=== PATIENT | male | born 1950 | race Caucasian/White ===

== ENCOUNTER → 2019-12-18 12:26 | Outpatient (CLI) | payer MEDICARE, SELFPAY ==
--- NOTE | 2019-12-18 | DI.RAD.S_ITS ---
PROCEDURE: XR KNEE RT 1TO2V INDICATIONS: RT KNEE PAIN TECHNIQUE: 3 views of the knee were acquired. COMPARISON: None. FINDINGS: Bones: No fracture. Scattered degenerative subchondral sclerosis and spurring. Large joint effusion. Bulky ossified formation. Chondrocalcinosis projects in the medial and lateral compartments. Mild narrowing of the lateral joint space. IMPRESSION: Mild/moderate right knee joint degeneration. Right knee chondrocalcinosis Large joint effusion. If the patient's pain or other symptoms persist, consider further evaluation with MRI Dictated by: Devon Rick M.D. on 12/18/2019 at 16:24 Approved by: Devon Rick M.D. on 12/18/2019 at 16:25
== END ==
PROVIDERS: PCP Family Medicine; Referring Provider Family Medicine; Visit Provider Family Medicine
DX: M25.561 Pain in right knee (principal); M17.11 Unilateral primary osteoarthritis, right knee; M11.261 Other chondrocalcinosis, right knee; M25.461 Effusion, right knee
CPT/HCPCS: 73560

== ENCOUNTER → 2019-12-22 10:52 | Outpatient (CLI) | payer MEDICARE, SELFPAY ==
--- NOTE | 2019-12-22 | DI.US.S_ITS ---
PROCEDURE: US CAROTID DOPPLER BI INDICATIONS: OCCLUSION AND STENOSIS TECHNIQUE: Color and pulse Doppler interrogation was performed of both carotid systems, with image documentation and velocity measurements. COMPARISON: None. FINDINGS: Stenosis calculations are based on SRU (Society of Radiologists in Ultrasound) criteria. Right side: Brachial blood pressure: 129/72 mm Hg. Common carotid artery peak systolic velocity: 86 cm/sec. Internal carotid artery peak systolic velocity: 65 cm/sec. Internal carotid artery end diastolic velocity: 17 cm/sec. External carotid artery peak systolic velocity: 94 cm/sec. ICA/CCA peak systolic ratio: 0.8. Sparrow scale imaging description: Mild intimal thickening. Percent internal carotid artery stenosis: Less than 50%. Vertebral artery: Flow direction is antegrade. Left side: Brachial blood pressure: 129/72 mm Hg. Common carotid artery peak systolic velocity: 94 cm/sec. Internal carotid artery peak systolic velocity: 58 cm/sec. Internal carotid artery end diastolic velocity: 20 cm/sec. External carotid artery peak systolic velocity: 83 cm/sec. ICA/CCA peak systolic ratio: 0.6. Sparrow scale imaging description: Mild intimal thickening. Percent internal carotid artery stenosis: Less than 50%. Vertebral artery: Flow direction is antegrade. IMPRESSION: Less than 50% bilateral internal carotid artery stenosis. Dictated by: Peter Echols [facility] Interpreted: Lynette Sullivan MD on 12/22/2019 at 11:54 Approved by: Lynette Sullivan M.D. on 12/22/2019 at 18:10
== END ==
PROVIDERS: PCP Family Medicine; Referring Provider Family Medicine; Visit Provider Family Medicine
DX: I65.23 Occlusion and stenosis of bilateral carotid arteries (principal)
CPT/HCPCS: 93880

== ENCOUNTER → 2020-02-27 08:51 | Outpatient (CLI) | payer MEDICARE, SELFPAY ==
--- NOTE | 2020-02-27 | DI.RAD.S_ITS ---
PROCEDURE: XR CHEST 2V INDICATIONS: DYSPNEA TECHNIQUE: 2 views of the chest were acquired. COMPARISON: [facility], , CHEST 1 VIEW, 04/06/2016, 19:25. [facility], CR, CHEST 2 VIEW, 07/06/2012, 9:25. [facility], RG, XR CXR 2 VIEW, 05/07/2005, 13:26. FINDINGS: Surgical changes and devices: None. Lungs and pleura: Lungs are clear. No pleural effusions or pneumothorax. Mediastinum: The cardiac contours are within normal limits. The aorta demonstrates calcification and tortuosity. Bones and chest wall: No suspicious bony abnormalities. Mild dextroconvex scoliotic curvature is seen. Age-appropriate bony degenerative changes are seen. Soft tissues appear unremarkable. IMPRESSION: Unremarkable imaging study for age, without definite, focal infiltrates. If there is clinical concern for a developing pulmonary process, a short-term followup chest series (with PA and lateral views, performed in deep inspiration) is suggested for further evaluation. Dictated by: Justin Jung M.D. on 02/27/2020 at 8:18 Approved by: Justin Jung M.D. on 02/27/2020 at 8:19
== END ==
PROVIDERS: PCP Family Medicine; Referring Provider Family Medicine; Visit Provider Family Medicine
DX: R06.00 Dyspnea, unspecified (principal)
CPT/HCPCS: 71046

== ENCOUNTER → 2020-03-06 10:06 | Outpatient (CLI) | payer MEDICARE, SELFPAY ==
--- NOTE | 2020-03-06 | DI.CT.S_ITS ---
PROCEDURE: CT CHEST W CON INDICATIONS: DYSPNEA TECHNIQUE: After the administration of intravenous contrast, 5 mm thick sections acquired from the pulmonary apices to the posterior costophrenic angles. 1 mm axial lung, 5 mm thick coronal and sagittal reformats and 7 mm axial MIP were acquired. For radiation dose reduction, the following was used: automated exposure control, adjustment of mA and/or kV according to patient size. COMPARISON: None. FINDINGS: Image quality: Excellent. Lungs and pleura: No acute air space opacities. No pleural effusions or pneumothorax. Central and peripheral airways are patent and normal in caliber. Mediastinum: Heart size is normal. No pericardial effusion. No mediastinal or hilar adenopathy by size criteria. Thoracic aorta and central pulmonary arteries are normal in size. Esophagus is normal in caliber. No hiatal hernia. Bones and chest wall: No suspicious bony lesions. No vertebral body compression fractures. No axillary or supraclavicular adenopathy by size criteria. Thyroid gland appears normal where well seen. Abdomen: Visualized upper abdominal solid organs appear normal. Upper abdominal bowel loops are normal in caliber. Note is made of what appears to be a relatively large gallstone at the gallbladder neck area, seen centered on series 2 images 59-60. This measures up to 2 cm. IMPRESSION: 1. A pulmonary embolus or mass lesion is not seen, no pneumonia or pulmonary fibrosis is identified. 2. What appears to be a coincidentally found possible impacted gallstone is seen at the gallbladder neck area. Biliary distention or inflammation of the gallbladder is not associated. Ultrasound assessment likely is warranted given this appearance and potential for subsequent development of acute cholecystitis as a result. Dictated by: Eric Meléndez M.D. on 03/06/2020 at 11:30 Approved by: Eric Meléndez M.D. on 03/06/2020 at 11:33
== END ==
PROVIDERS: PCP Family Medicine; Referring Provider Family Medicine; Visit Provider Family Medicine
DX: R06.00 Dyspnea, unspecified (principal)
CPT/HCPCS: 71260; Q9967

== ENCOUNTER → 2020-03-15 09:08 | Outpatient (CLI) | payer MEDICARE, SELFPAY ==
--- NOTE | 2020-03-15 | DI.US.S_ITS ---
PROCEDURE: US ABDOMEN COMPLETE INDICATIONS: CALCULUS OF GALLBLADDER WITHOUT CHOLECYSTITIS TECHNIQUE: Real-time scanning was performed of the abdominal and retroperitoneal organs, with image documentation. COMPARISON: [facility], US, ABDOMEN LIMITED, 07/06/2012, 14:57. [facility], CT, CT CHEST W CON, 03/06/2020, 10:30. FINDINGS: Liver: Liver is normal in size and homogeneous in echotexture. Gallbladder: Gallstones can be seen. The gallbladder wall is not thickened, measuring 3 mm or less. No specific pericholecystic fluid is seen. The sonographic Muñoz sign is negative. Biliary ducts: Intrahepatic bile ducts are non-dilated. Extrahepatic bile duct caliber measures 3 mm. Normal is 6-7 mm or less in diameter, or 10 mm or less post-cholecystectomy. Pancreas: Visualized portions of the pancreas are sonographically normal. Spleen: Spleen is normal in size and homogeneous in echotexture. Kidneys: Kidneys are normal in size and echotexture. Right kidney measures 10.7 cm long; left kidney measures 12.6 cm long. No hydronephrosis or nephrolithiasis. No solid masses. Aorta: Visualized aorta is normal in caliber at less than 3 cm. Iliacs: Proximal common iliac arteries are normal in caliber at less than 2.5 cm. IVC: Intrahepatic inferior vena cava is patent. Miscellaneous: No free abdominal fluid. IMPRESSION: Gallstones are seen, yet without additional sonographic signs of cholecystitis. Negative for biliary dilatation. Please correlate with physical examination findings, patient presentation, and laboratory values. Dictated by: Justin Jung M.D. on 03/15/2020 at 9:36 Approved by: Justin Jung M.D. on 03/15/2020 at 9:38
== END ==
PROVIDERS: PCP Family Medicine; Referring Provider Family Medicine; Visit Provider Family Medicine
DX: K80.20 Calculus of gallbladder without cholecystitis without obstruction (principal)
CPT/HCPCS: 76700

== ENCOUNTER → 2020-12-18 11:02 | Outpatient (CLI) | payer MEDICARE, SELFPAY ==
[2020-12-18 11:33] LABS: Add Manual Diff / Slide Review NO; Basophils Absolute Auto 0 /uL (0-100); Basophils Percent Auto 0.3 % (0-2); Eosinophils Absolute Auto 0 /uL (0-450); Eosinophils Percent Auto 0.6 % (2-4); Hemoglobin 11.4 g/dL (13.5-17.5); Lymphocytes Absolute Auto 700 /uL (1100-4500); Lymphocytes Percent Auto 33.4 % (25-40); Mean Corpuscular HGB Conc 33.5 % (30-36); Mean Corpuscular Hemoglobin 31.3 PG (26-34); Mean Corpuscular Volume 93.4 fL (80-100); Monocytes Absolute Auto 100 /uL (0-900); Monocytes Percent Auto 4.7 % (3-14); Neutrophils Absolute Auto 1300 /uL (1500-7000); Platelet Count 143 X10^3/uL (150-400); Red Blood Cell Count 3.64 X10^6/uL (4.5-5.9); Red Cell Distribution Width 15.4 % (11.6-14.8); White Blood Cell Count 2.2 X10^3/uL (4.5-11.0)
[2020-12-18 11:44] LABS: Alanine Aminotransferase 28 IU/L (<50); Alkaline Phosphatase 99 U/L (38-126); Aspartate Aminotransferase 33 IU/L (17-59); BUN Creatinine Ratio 23.6 (6-22); Bilirubin Total 0.4 mg/dL (0.2-1.3); Blood Urea Nitrogen 25 mg/dL (9-20); Calcium 9.9 mg/dL (8.4-10.2); Carbon Dioxide 30 mmol/L (22-32); Chloride 104 mmol/L (98-107); Estimated Glomerular Filt Rate > 60.0 mL/min (>60); Glucose 106 mg/dL (80-110); HEMOLYSIS < 15 (0-50); Potassium 4.5 mmol/L (3.4-5.1); Sodium 142 mmol/L (137-145)
[2020-12-18 11:55] LABS: Albumin Globulin Ratio 0.6 (1.0-2.8); Globulin 6.4 g/dL (1.7-4.1)
[2020-12-18 11:57] LABS: Total Protein 10.4 g/dL (6.3-8.2)
== END ==
PROVIDERS: PCP Family Medicine; Referring Provider Internal Medicine; Visit Provider Internal Medicine
DX: C91.40 Hairy cell leukemia not having achieved remission (principal)
CPT/HCPCS: 36415; 80053; 85025

== ENCOUNTER → 2021-02-19 07:55 | Outpatient (CLI) | payer MEDICARE, SELFPAY ==
--- NOTE | 2021-02-19 | DI.MRI.S_ITS ---
PROCEDURE: MR LUMBAR SPINE WO CON INDICATIONS: Low back pain TECHNIQUE: Noncontrast sagittal T1 spin echo and T2 fast echo, sagittal STIR, axial T1 and T2 fast spin echo through the lumbar spine. In cases with scoliosis, additional coronal T2 fast spin echo may be performed. COMPARISON: None. FINDINGS: There are compression fractures at L3 and L4 with central endplate depression and disruption, along with adjacent bone marrow edema. There is approximately 40 percent height loss in the L4 vertebral body centrally and 20 percent height loss in the L3 vertebral body centrally. Remaining vertebral body heights maintained. Normal alignment. Normal position and appearance of the conus. Prevertebral and paraspinous soft tissues are within normal limits. The included unenhanced retroperitoneal visceral structures demonstrate no significant abnormality. T12-L1: No spinal canal or neural foraminal stenosis. L1-L2: No spinal canal stenosis. Foraminal components of a diffuse disc bulge contribute to mild bilateral neural foraminal stenosis. L2-L3: Diffuse disc bulge without mass effect upon the traversing L3 nerve roots. Foraminal components of the disc bulge contribute to mild bilateral neural foraminal stenosis in conjunction with facet hypertrophy. Small facet effusion on the right. L3-L4: Diffuse disc bulge flattens the ventral thecal sac. Disc material closely approximates but does not appear to abut the descending L4 nerve roots within the subarticular zones. Foraminal components of the disc bulge and facet hypertrophy contribute to mild bilateral neural foraminal stenosis. L4-L5: Disc bulge flattens the ventral thecal sac. No mass effect upon the traversing L5 nerve roots. Moderate bilateral neural foraminal stenosis due to neural foraminal height loss, foraminal components of disc bulge, and facet hypertrophy. Disc material abuts the undersurfaces of the exiting L4 nerve roots within both neural foramina. L5-S1: Diffuse disc bulge. No mass effect upon the traversing S1 nerve roots. Mild bilateral neural foraminal narrowing due to foraminal components of the disc bulge. IMPRESSION: Acute compression fractures at L3 and L4. Multilevel multifactorial degenerative changes worst at L4-L5. Dictated by: Quinten Burns M.D. on 02/19/2021 at 9:11 Approved by: Quinten Burns M.D. on 02/19/2021 at 9:21
== END ==
PROVIDERS: PCP Family Medicine; Referring Provider Family Medicine; Visit Provider Nurse Practitioner Family
DX: M54.5 Low back pain (principal); S32.039A Unspecified fracture of third lumbar vertebra, initial encounter for closed fracture; S32.049A Unspecified fracture of fourth lumbar vertebra, initial encounter for closed fracture; M51.36 Other intervertebral disc degeneration, lumbar region
CPT/HCPCS: 72148

== ENCOUNTER → 2021-02-28 10:09 | Outpatient (CLI) | payer MEDICARE, SELFPAY | PROVIDERS: PCP Family Medicine; Referring Provider Nurse Practitioner Family; Visit Provider Nurse Practitioner Family | DX: M85.88 Other specified disorders of bone density and structure, other site (principal); M48.53XA Collapsed vertebra, not elsewhere classified, cervicothoracic region, initial encounter for fracture | CPT/HCPCS: 77080 ==

== ENCOUNTER → 2021-04-21 11:40 | Outpatient (CLI) | payer MEDICARE, SELFPAY ==
--- NOTE | 2021-04-21 11:45 | DI.MRI.S_ITS ---
PROCEDURE: MR BONE MARROW INDICATIONS: Staging multiple myeloma TECHNIQUE: Noncontrast sagittal T1 spin echo and STIR through the spine; coronal T1 spin echo and STIR through the bony thorax, coronal T1 spin echo and STIR through the bony pelvis and femurs. COMPARISON: None. FINDINGS: Image quality: Excellent. Spine: All visualized vertebral bodies are normally aligned. Markedly heterogeneous marrow signal in lower thoracic and lumbar spine is seen. Possible intraosseous hemangioma is noted involving posterior aspect of T4 vertebral body. Chronic appearing anterior wedge compression deformity at T5 level is seen. There is acute to subacute appearing compression deformity involving T12 vertebral body new since 02/19/2021 study with up to 50% loss of T12 vertebral body height and extensive marrow edema. Acute to subacute appearing compression deformity involving L2 vertebral body is also seen new since 02/19/2021 study with up to 33% loss of L2 vertebral body height and extensive marrow edema. There is interval further loss of L3 and L4 vertebral body height with up to 50% loss of L3 vertebral body height on the current study and up to 35% loss of L4 vertebral body height. Extensive marrow edema involving L5 vertebral body is also seen with up to 30% loss of L5 vertebral body height . Extensive marrow edema throughout L3 through L5 vertebral bodies are also seen. Mild retropulsion involving posterior wall of T12 vertebral body is seen with mild central canal stenosis at this level. Degenerative disc disease throughout lumbar spine is seen causing [id number] central canal stenosis more prominent at L4-5 and L5-S1 levels. The visualized spinal cord demonstrates normal intramedullary signal. The conus is in expected position. No epidural or paravertebral soft tissue masses. Pelvis and hips: Heterogeneously increased marrow signal throughout bony pelvis is seen. Heterogeneously increased marrow signal are also seen involving bilateral proximal femoral shafts concerning for extensive myomatous involvement. No pelvic ring or sacral pathologic or insufficiency fractures. Physiologic amounts of hip joint fluid are present. No joint degeneration or soft tissue bursal fluid collections. Soft tissues: No free pelvic fluid. No pathologic pelvic or inguinal adenopathy. Visualized bowel loops appear normal in caliber. Limited images through the genitourinary tract demonstrate no abnormalities. The muscles demonstrate normal overall bulk and internal signal. IMPRESSION: 1. Markedly heterogeneous marrow signal throughout mid to lower thoracic spine and lumbar spine with marrow edema and acute to subacute appearing compression deformities involving T12, L2, L3, L4 and L5 vertebral bodies as described above, new or progressed since 02/19/2021 study. Finding is concerning for pathologic fracture secondary to myomatous lesions in the vertebral bodies. 2. Heterogeneous marrow signal in bony pelvis with suggestion of multiple lytic lesions scattered throughout bony pelvis and in bilateral proximal femoral shafts concerning for myeloma thus lesions. No pelvic fracture or dislocation. 3. No gross muscle or soft tissue signal abnormality is seen. Dictated by: Jerry Stovall M.D. on 04/21/2021 at 14:31 Approved by: Jerry Stovall M.D. on 04/21/2021 at 14:50
== END ==
PROVIDERS: PCP Family Medicine; Referring Provider Internal Medicine; Visit Provider Internal Medicine
DX: C90.00 Multiple myeloma not having achieved remission (principal)
CPT/HCPCS: 77084

== ENCOUNTER 2021-07-26 14:28 | Inpatient (IN) | payer MEDICARE, SELFPAY ==
[2021-07-26] VITALS (21 sets, daily range): BP systolic 109–125; BP diastolic 56–66; PULSE 80–107; RESP 18–27; TEMP 35.9–37.7; O2SAT 92–98; BMI 27.7
--- NOTE | 2021-07-26 14:49 | DI.RAD.S_ITS ---
PROCEDURE: XR CHEST 1V INDICATIONS: suspected sepsis TECHNIQUE: One view of the chest was acquired. COMPARISON: [facility], CR, XR CHEST 2V, 02/27/2020, 8:50. FINDINGS: Surgical changes and devices: None. Lungs and pleura: Minimal right basilar atelectasis and/or infiltrate is accentuated by low lung volumes. Remainder the lungs and pleural spaces are clear. Mediastinum: Mediastinal contours appear normal. Heart size is normal. Bones and chest wall: No suspicious bony lesions. Overlying soft tissues appear unremarkable. IMPRESSION: Right basilar atelectasis and infiltrate accentuated by low lung volumes Approved by: Tee Alan M.D. on 07/26/2021 at 14:58
[2021-07-26 15:11] LABS: Add Manual Diff / Slide Review NO; Basophils Absolute Auto 0 /uL (0-100); Basophils Percent Auto 0.1 % (0-2); Eosinophils Absolute Auto 0 /uL (0-450); Hematocrit 35.2 % (41-53); Hemoglobin 11.7 g/dL (13.5-17.5); Lymphocytes Absolute Auto 100 /uL (1100-4500); Lymphocytes Percent Auto 2.6 % (25-40); Mean Corpuscular HGB Conc 33.2 % (30-36); Mean Corpuscular Hemoglobin 30.4 PG (26-34); Mean Corpuscular Volume 91.6 fL (80-100); Monocytes Absolute Auto 800 /uL (0-900); Monocytes Percent Auto 13.8 % (3-14); Neutrophils Absolute Auto 4600 /uL (1500-7000); Neutrophils Percent Auto 83.5 % (50-75); Platelet Count 167 X10^3/uL (150-400); Red Blood Cell Count 3.85 X10^6/uL (4.5-5.9); Red Cell Distribution Width 17.4 % (11.6-14.8); White Blood Cell Count 5.5 X10^3/uL (4.5-11.0)
--- NOTE | 2021-07-26 15:19 | DI.RAD.S_ITS ---
PROCEDURE: XR WRIST RT MIN 3V INDICATIONS: Pain multiple myeloma TECHNIQUE: 4 views of the wrist were acquired. COMPARISON: None. FINDINGS: Bones: No fractures or dislocations. No suspicious bony lesions. Radiocarpal joint space narrowing with subchondral sclerosis noted. No joint space narrowing noted involving the 1st carpometacarpal joint. No lytic or blastic lesions. Scaphoid view: Unremarkable Soft tissues: No suspicious soft tissue calcifications. IMPRESSION: No osteoarthritic changes without lytic lesion. Approved by: Tee Alan M.D. on 07/26/2021 at 15:15
--- NOTE | 2021-07-26 15:19 | DI.RAD.S_ITS ---
PROCEDURE: XR SHOULDER RT MIN 2V INDICATIONS: pain multiple myeloma TECHNIQUE: 3 views of the shoulder were acquired. COMPARISON: None. FINDINGS: Bones: No fractures or dislocations. No suspicious bony lesions. Visualized ribs appear intact. Soft tissues: No suspicious soft tissue calcifications. IMPRESSION: Unremarkable right shoulder without fracture or lytic lesion. Approved by: Tee Alan M.D. on 07/26/2021 at 15:16
--- NOTE | 2021-07-26 15:19 | ED_ITS ---
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 He is being treated with medication like his knee gets it about once a month he this is his 3rd dose of it she is not sure if the joint pain is coinciding with this medication. He is on multiple other medications which also cause joint pain. He does occasionally have night sweats. He has no chest pain or shortness of breath. Mostly his right shoulder hurts after turning over in bed last evening. He is having significant pain in his right wrist and her right knee as well. No erythema of joints. He denies any headache or neck pain. He has lytic lesions in his spine. He overall appears to not feel well. states that he has literally been lying in bed for 6 days he uses a urinal to use the restroom he has not been up at all. It took multiple men to get him out of bed into the car today. A week or 2 weeks ago he was of in helping [place] with [place] involved patient due to cancer and chemotherapy he has had to back off his level of involvement but is still very active until 6 days ago. Related Data Home Medications Medication Instructions Recorded Confirmed omega-3 fatty acids 1 tab DAILY 01/03/20 06/17/21 Memory Supplement 1 tab DAILY 12/24/20 06/17/21 ferrous fumarate-docusate ER 150 2 cap PO DAILY 12/24/20 06/17/21 mg-100 mg capsule,extended release Biost Supplement 1 tab DAILY 04/02/21 06/17/21 calcium-magnesium 750 mg-465 mg 1 tab PO DAILY 04/02/21 06/17/21 tablet ibuprofen 300 mg tablet 600 mg PO Q6H PRN 04/02/21 06/17/21 Previous Rx's Medication Instructions Recorded acyclovir 400 mg tablet 400 mg PO BID #60 tab 07/08/21 dexamethasone 4 mg tablet 20 mg PO WEEKLY #20 tab 09/14/21 (Decadron) lenalidomide 25 mg capsule 25 mg PO DAILY 14 Days #14 cap 07/15/21 Allergies Allergy/AdvReac Type Severity Reaction Status Date / Time No Known Drug Allergies Allergy Verified 01/03/20 10:36 Review of Systems Review of Systems ROS Unobtainable: All systems reviewed & are unremarkable except as noted in HPI and below Constitutional Constitutional: Reports body ache(s), Reports chills, Denies headache(s), Denies increased appetite and Reports lethargy Eyes Eyes: Denies diplopia ENT Ears, Nose, Mouth, and Throat: Denies vertigo, Denies headache(s), Denies lip swelling and Denies neck pain Cardiovascular Cardiovascular: Denies chest pain, Denies syncope and Denies lightheadedness Respiratory Respiratory: Denies chest congestion and Denies cough Gastrointestinal Gastrointestinal: Denies abdominal pain, Denies nausea and Denies vomiting Genitourinary Genitourinary: Denies urinary hesitancy Musculoskeletal Musculoskeletal: Reports as per HPI, Denies deformity, Reports arthralgias, Reports joint swelling and Denies neck pain Integumentary/Breasts Skin/Breast: Denies rash Neurologic Neurologic: Denies confusion, Denies vertigo, Denies syncope and Denies headache(s) Psychiatric Psychiatric: Denies confusion Allergic/Immunologic Allergic/Immunologic: Denies lip swelling Patient History Social History Smoking Status: Never smoker Smoking Status: Never smoker Substance Use Type: does not use Exam Initial Vital Signs Initial Vital Signs: Vital Signs Temperature 99.8 F H 07/26/21 14:38 Pulse Rate 107 H 07/26/21 14:38 Respiratory Rate 20 07/26/21 14:38 Blood Pressure 120/59 L 07/26/21 14:38 Pulse Oximetry 97 07/26/21 14:38 GENERAL: Alert 70-year-old male appears to not feel well= HEENT: Head atraumatic,EOMI, pupils reactive, face symmetric, moist mucous membranes CARDIOVASCULAR: Regular rate and rhythm without murmurs, rubs or gallops. RESPIRATORY: Breath sounds equal bilaterally, no wheezes rales or rhonchi. ABDOMEN: Soft, nontender. Normoactive bowel sounds all 4 quadrants. No guarding or rebound. EXTREMITIES: Normal range of motion, no clubbing or edema. Neurovascularly intact Right shoulder tender to touch no erythema no swelling no clavicle step-off right wrist pain but also noted no significant swelling or erythema distal radial pulse intact moving fingers right knee in the knee brace but there is no erythema minimal swelling NEUROLOGICAL: Alert and oriented x4.Normal gait and speech. Cranial nerves II through XII grossly intact. SKIN: Warm, dry, no laceration, no petechiae, no rashes or lesions. Course Orders Ordered: ED Orders 07/26/21 14:49 XR chest 1V Stat EKG-12 Lead Stat RT Consult Eval and Treat Now 07/26/21 15:01 C-Reactive Protein Quant Stat Complete Blood Count AUTO DIFF Stat Comprehensive Metabolic Panel Stat Erythrocyte Sedimentation Rate Stat Lactate (Lactic Acid) Stat Lipase Stat Procalcitonin Stat Troponin & CK Cardiac Panel Stat 07/26/21 15:10 Blood Culture Stat 07/26/21 15:17 COVID19 - ADMIT ([employer]ORDIN[employer] swab/PCR) Stat 07/26/21 15:19 XR knee RT 1to2V Stat XR shoulder RT min 2V Stat XR wrist RT min 3V Stat 07/26/21 17:36 CT head/brain wo con Stat Discontinued Medications Sodium Chloride (Normal Saline 0.9%) 1,000 mls @ 1,000 mls/hr IV BOLUS ONE Stop: 07/26/21 15:48 Last Infusion: 07/26/21 16:48 Dose: 0 mls/hr Documented by: Admin: 07/26/21 15:20 Dose: 1,000 mls/hr Documented by: NAHEED Sodium Chloride (Normal Saline 0.9%) 1,000 mls @ 1,000 mls/hr IV BOLUS ONE Stop: 07/26/21 17:46 Last Infusion: 07/26/21 17:58 Dose: 0 mls/hr Documented by: Admin: 07/26/21 16:51 Dose: 1,000 mls/hr Documented by: MEGA Morphine Sulfate (Morphine 2 Mg/Ml Inj) 2 mg IV NOW ONE Stop: 07/26/21 15:20 Last Admin: 07/26/21 15:26 Dose: 2 mg Documented by: NAHEED Vital Signs Vital signs: Vital Signs - 8 hr 07/26/21 14:38 07/26/21 14:52 07/26/21 15:00 Temperature 99.8 F H Pulse Rate 107 H 102 H 104 H Respiratory Rate 20 27 H Blood Pressure 120/59 L Pulse Oximetry 97 96 96 07/26/21 15:11 07/26/21 15:15 07/26/21 15:30 Temperature Pulse Rate 102 H 104 H 96 H Respiratory Rate 27 H 27 H 25 H Blood Pressure 124/66 125/59 L Pulse Oximetry 96 97 98 07/26/21 15:45 07/26/21 16:00 07/26/21 16:15 Temperature Pulse Rate 93 H 91 H 91 H Respiratory Rate 22 25 H 20 Blood Pressure 120/57 L Pulse Oximetry 97 97 95 07/26/21 16:30 07/26/21 16:45 07/26/21 17:00 Temperature Pulse Rate 91 H 89 89 Respiratory Rate 21 20 20 Blood Pressure 119/56 L 119/56 L 119/56 L Pulse Oximetry 94 96 93 07/26/21 17:15 07/26/21 17:30 07/26/21 17:45 Temperature Pulse Rate 88 91 H 87 Respiratory Rate 20 20 22 Blood Pressure 120/58 L Pulse Oximetry 93 97 95 07/26/21 17:57 07/26/21 18:00 07/26/21 18:15 Temperature 96.7 F L Pulse Rate 89 92 H Respiratory Rate 20 20 Blood Pressure 120/58 L Pulse Oximetry 96 97 MDM - Fever Lab Data Result diagrams: 07/26/21 15:01 07/26/21 15:01 Labs: Lab Results 07/26/21 07/26/21 07/26/21 Range/Units 15:01 15:01 15:01 WBC 5.5 (4.5-11.0) X10^3/uL RBC 3.85 L (4.5-5.9) X10^6/uL Hgb 11.7 L (13.5-17.5) g/dL Hct 35.2 L (41-53) % MCV 91.6 (80-100) fL MCH 30.4 (26-34) PG MCHC 33.2 (30-36) % RDW 17.4 H (11.6-14.8) % Plt Count 167 (150-400) X10^3/uL Neut % (Auto) 83.5 H (50-75) % Lymph % (Auto) 2.6 L (25-40) % [place] % (Auto) 13.8 (3-14) % Eos % (Auto) 0.0 L (2-4) % Baso % (Auto) 0.1 (0-2) % Neut # (Auto) 4600 (3490-4290) /uL Lymph # (Auto) 100 L (8388-2994) /uL [place] # (Auto) 800 (0-900) /uL Eos # (Auto) 0 (0-450) /uL Baso # (Auto) 0 (0-100) /uL ESR (0-15) MM/HR Sodium 137 (137-145) mmol/L Potassium 4.1 (3.4-5.1) mmol/L Chloride 102 (98-107) mmol/L Carbon Dioxide 26 (22-32) mmol/L BUN 20 (9-20) mg/dL Creatinine 1.23 (0.66-1.25) mg/dL Estimated GFR 58.2 L (>60) mL/min BUN/Creatinine Ratio 16.3 (6-22) Glucose 181 H (80-110) mg/dL Lactate 1.8 (0.7-2.1) mmol/L Calcium 7.3 L (8.4-10.2) mg/dL Total Bilirubin 1.0 (0.2-1.3) mg/dL AST 22 (17-59) IU/L ALT 25 (<50) IU/L Alkaline Phosphatase 89 (38-126) U/L Total Creatine Kinase 31 L (55-170) U/L CK-MB (CK-2) TNP CK-MB (CK-2) Rel Index TNP Troponin I < 0.012 (0.01-0.034) ng/mL C-Reactive Protein (<1.0) mg/dL Total Protein 7.6 (6.3-8.2) g/dL Albumin 3.9 (3.5-5.0) g/dL Globulin 3.7 (1.7-4.1) g/dL Albumin/Globulin Ratio 1.1 (1.0-2.8) Lipase 14 L (23-300) U/L Procalcitonin 0.65 H (<0.5) ng/mL SARS-CoV-2 (PCR) (Negative) 07/26/21 07/26/21 07/26/21 Range/Units 15:01 15:01 15:17 WBC (4.5-11.0) X10^3/uL RBC (4.5-5.9) X10^6/uL Hgb (13.5-17.5) g/dL Hct (41-53) % MCV (80-100) fL MCH (26-34) PG MCHC (30-36) % RDW (11.6-14.8) % Plt Count (150-400) X10^3/uL Neut % (Auto) (50-75) % Lymph % (Auto) (25-40) % [place] % (Auto) (3-14) % Eos % (Auto) (2-4) % Baso % (Auto) (0-2) % Neut # (Auto) (2201-9265) /uL Lymph # (Auto) (0463-0021) /uL [place] # (Auto) (0-900) /uL Eos # (Auto) (0-450) /uL Baso # (Auto) (0-100) /uL ESR > 140 H (0-15) MM/HR Sodium (137-145) mmol/L Potassium (3.4-5.1) mmol/L Chloride (98-107) mmol/L Carbon Dioxide (22-32) mmol/L BUN (9-20) mg/dL Creatinine (0.66-1.25) mg/dL Estimated GFR (>60) mL/min BUN/Creatinine Ratio (6-22) Glucose (80-110) mg/dL Lactate (0.7-2.1) mmol/L Calcium (8.4-10.2) mg/dL Total Bilirubin (0.2-1.3) mg/dL AST (17-59) IU/L ALT (<50) IU/L Alkaline Phosphatase (38-126) U/L Total Creatine Kinase (55-170) U/L CK-MB (CK-2) CK-MB (CK-2) Rel Index Troponin I (0.01-0.034) ng/mL C-Reactive Protein 29.4 H (<1.0) mg/dL Total Protein (6.3-8.2) g/dL Albumin (3.5-5.0) g/dL Globulin (1.7-4.1) g/dL Albumin/Globulin Ratio (1.0-2.8) Lipase (23-300) U/L Procalcitonin (<0.5) ng/mL SARS-CoV-2 (PCR) Negative (Negative) Imaging Data CT scan - head: Radiologist's Impression: PROCEDURE:? CT HEAD/BRAIN WO CON ? INDICATIONS:? weakness ? TECHNIQUE:? Noncontrast 4.5 mm thick angled axial sections acquired from the foramen magnum to the vertex, with coronal and sagittal reformats.? For radiation dose reduction, the following was used:? automated exposure control, adjustment of mA and/or kV according to patient size.? ? COMPARISON:? [facility], CT, HEAD WITHOUT CONTRAST, 04/06/2016, 19:43. ? FINDINGS:? Image quality:? Excellent.? ? CSF spaces:? Basal cisterns are patent.? No extra-axial fluid collections.? The ventricles are symmetric in size and shape.? ? Brain:? No intracranial bleeds or masses.? There is cerebral volume loss for age, with resultant ventricular and sulcal prominence.? There are periventricular and deep white matter chronic small vessel ischemic changes.? There is intracranial internal carotid artery atherosclerosis.? ? Skull and face:? Calvarium and visualized facial bones appear intact, without suspicious lesions.? ? Sinuses:? Visualized sinuses and mastoids are clear.? ? IMPRESSION:? Moderate atrophy and chronic ischemic change without acute hemorrhage or mass effect. ? ? ? Approved by: Tee Alan M.D. on 07/26/2021 at 17:12? Extremity x-ray #1: Radiologist's Impression: PROCEDURE:? XR WRIST RT MIN 3V ? INDICATIONS: Pain multiple myeloma ? TECHNIQUE:? 4 views of the wrist were acquired.? ? COMPARISON:? None. ? FINDINGS:? ? Bones:? No fractures or dislocations.? No suspicious bony lesions.? Radiocarpal joint space narrowing with subchondral sclerosis noted.? No joint space narrowing noted involving the 1st carpometacarpal joint.? No lytic or blastic lesions. ? Scaphoid view:? Unremarkable ? Soft tissues:? No suspicious soft tissue calcifications.? ? IMPRESSION:? No osteoarthritic changes without lytic lesion. ? ? ? Approved by: Tee Alan M.D. on 07/26/2021 at 15:15? Extremity x-ray #2: Radiologist's Impression: PROCEDURE:? XR SHOULDER RT MIN 2V ? INDICATIONS:? pain multiple myeloma ? TECHNIQUE:? 3 views of the shoulder were acquired.? ? COMPARISON:? None. ? FINDINGS:? ? Bones:? No fractures or dislocations.? No suspicious bony lesions.? Visualized ribs appear intact.? ? Soft tissues:? No suspicious soft tissue calcifications.? ? IMPRESSION:? Unremarkable right shoulder without fracture or lytic lesion. ? ? ? Approved by: Tee Alan M.D. on 07/26/2021 at 15:16? Extremity x-ray #3: Radiologist's Impression: PROCEDURE:? XR KNEE RT 1TO2V ? INDICATIONS:? pain multiple myeloma ? TECHNIQUE:? 3 views of the knee were acquired.? ? COMPARISON:? [facility], , XR KNEE RT 1TO2V, 12/18/2019, 13:05. ? FINDINGS:? ? Bones:? No fractures or dislocations.? No suspicious bony lesions.? Tricompartmental moderate joint space narrowing and marginal osteophytes present.? No lytic or blastic lesion. ? Soft tissues:? Large joint effusion.? No suspicious soft tissue calcifications.? ? External bracing material limits assessment. ? ? IMPRESSION:? Moderate osteoarthritis and large joint effusion.? No lytic lesion.? ? ? Approved by: Tee Alan M.D. on 07/26/2021 at 15:18? Chest x-ray: Radiologist's Impression: PROCEDURE:? XR CHEST 1V ? INDICATIONS:? suspected sepsis ? TECHNIQUE:? One view of the chest was acquired.? ? COMPARISON:? [facility], , XR CHEST 2V, 02/27/2020, 8:50. ? FINDINGS:? ? Surgical changes and devices:? None.? ? Lungs and pleura:? Minimal right basilar atelectasis and/or infiltrate is accentuated by low lung volumes.? Remainder the lungs and pleural spaces are clear. ? Mediastinum:? Mediastinal contours appear normal.? Heart size is normal.? ? Bones and chest wall:? No suspicious bony lesions.? Overlying soft tissues appear unremarkable.? ? IMPRESSION:? Right basilar atelectasis and infiltrate accentuated by low lung volumes ? ? ? Approved by: Tee Alan M.D. on 07/26/2021 at 14:58? ECG Data Interpretation: Sinus rhythm 105 WI interval 178 QRS [address] changes or T-wave inversion no ST changes he does have a Q-wave noted in lead 3 and AVF similar to previous EKG 2016 MDM Narrative Medical decision making narrative: Patient is overall generally weak. Significantly more than previous. Unclear if this is related to chemotherapy or other underlying process. He does have mildly elevated procalcitonin of 0.65 but is normally not severe sepsis he has no leukocytosis normal lactic acid. Significantly elevated ESR and CRP difficult to tell what is causing this. He is having pain putting some of his larger joints but do not think 3 days or 1 of those is septic it is not erythematous he does not have a fever. He is generally very active and is not on active for the last number of days. He is given morphine for pain which has helped significantly. Recommend admit for observation he is generally weak not at baseline Dr. ervin updated patient's symptoms test results and except Discharge Plan Departure Patient Disposition: Admitted as Observation Clinical Impression: Weakness generalized, Hairy cell leukemia, Multiple myeloma Admit Date/Time: 07/26/21 18:23 Admit Provider: Christin Ervin
--- NOTE | 2021-07-26 15:19 | DI.RAD.S_ITS ---
PROCEDURE: XR KNEE RT 1TO2V INDICATIONS: pain multiple myeloma TECHNIQUE: 3 views of the knee were acquired. COMPARISON: [facility], CR, XR KNEE RT 1TO2V, 12/18/2019, 13:05. FINDINGS: Bones: No fractures or dislocations. No suspicious bony lesions. Tricompartmental moderate joint space narrowing and marginal osteophytes present. No lytic or blastic lesion. Soft tissues: Large joint effusion. No suspicious soft tissue calcifications. External bracing material limits assessment. IMPRESSION: Moderate osteoarthritis and large joint effusion. No lytic lesion. Approved by: Tee Alan M.D. on 07/26/2021 at 15:18
[2021-07-26] MEDS: SODIUM CHLORIDE 0.9% 1,000 ML 1000 ML IV ×2 (15:20→16:51)
[2021-07-26] MEDS: MORPHINE 2 MG/ML INJ IV (15:26)
[2021-07-26 15:28] LABS: Alanine Aminotransferase 25 IU/L (<50); Albumin 3.9 g/dL (3.5-5.0); Albumin Globulin Ratio 1.1 (1.0-2.8); Alkaline Phosphatase 89 U/L (38-126); Aspartate Aminotransferase 22 IU/L (17-59); BUN Creatinine Ratio 16.3 (6-22); Blood Urea Nitrogen 20 mg/dL (9-20); Calcium 7.3 mg/dL (8.4-10.2); Carbon Dioxide 26 mmol/L (22-32); Chloride 102 mmol/L (98-107); Creatine Kinase 31 U/L (55-170); Estimated Glomerular Filt Rate 58.2 mL/min (>60); Globulin 3.7 g/dL (1.7-4.1); Glucose 181 mg/dL (80-110); HEMOLYSIS < 15 (0-50); Lactate (Lactic Acid) 1.8 mmol/L (0.7-2.1); Lipase 14 U/L (23-300); Potassium 4.1 mmol/L (3.4-5.1); Sodium 137 mmol/L (137-145); Total Protein 7.6 g/dL (6.3-8.2)
[2021-07-26 15:39] LABS: Troponin I < 0.012 ng/mL (0.01-0.034)
[2021-07-26 15:43] LABS: Procalcitonin 0.65 ng/mL (<0.5)
[2021-07-26 15:46] LABS: Erythrocyte Sedimentation Rate > 140 MM/HR (0-15)
[2021-07-26 16:15] LABS: C-Reactive Protein Quant 29.4 mg/dL (<1.0)
[2021-07-26 16:46] LABS: COVID19 - ADMIT (NP swab/PCR) Negative (Negative)
--- NOTE | 2021-07-26 17:36 | DI.CT.S_ITS ---
PROCEDURE: CT HEAD/BRAIN WO CON INDICATIONS: weakness TECHNIQUE: Noncontrast 4.5 mm thick angled axial sections acquired from the foramen magnum to the vertex, with coronal and sagittal reformats. For radiation dose reduction, the following was used: automated exposure control, adjustment of mA and/or kV according to patient size. COMPARISON: [facility], CT, HEAD WITHOUT CONTRAST, 04/06/2016, 19:43. FINDINGS: Image quality: Excellent. CSF spaces: Basal cisterns are patent. No extra-axial fluid collections. The ventricles are symmetric in size and shape. Brain: No intracranial bleeds or masses. There is cerebral volume loss for age, with resultant ventricular and sulcal prominence. There are periventricular and deep white matter chronic small vessel ischemic changes. There is intracranial internal carotid artery atherosclerosis. Skull and face: Calvarium and visualized facial bones appear intact, without suspicious lesions. Sinuses: Visualized sinuses and mastoids are clear. IMPRESSION: Moderate atrophy and chronic ischemic change without acute hemorrhage or mass effect. Approved by: Tee Alan M.D. on 07/26/2021 at 17:12
--- NOTE | 2021-07-26 20:07 | P.HP_ITS ---
History of Present Illness History of Present Illness Date Patient Seen: 07/26/21 Time Patient Seen: 20:07 Date of Onset of Symptoms: 07/20/21 Chief complaint: reaction to meds/severe pain and swelling in joint Narrative: This is a 70-year-old male with hairy cell leukemia diagnosed in 2011 and multiple myeloma diagnosed after 2 compression fractures within the last year. Six days ago he developed bilateral knee pain along with swelling in the right wrist. The swelling and pain has made it impossible for him to function and so he has been in bed, weakening over the last 6 days. He now presents with a sed rate greater than 140, a CRP of 29.4 and a procalcitonin of 0.65. His COVID test is negative and he is COVID vaccinated. He is currently under oncologic treatment with lenalidomide along with some various other injection treatments that he does not recall the name of. He is also on acyclovir but really on no other medications and has no other significant medical history. He does recall having had gout in several fingers many years ago. He says this feels much worse than his episode of gout. His chest x-ray is read as a right base infiltrate which I have reviewed and do not see any signs of. He has had a mild cough and has felt feverish and sweaty but does not recall any specific temperatures. There has been no nausea, vomiting, abdominal pain, chest pain, dysuria, rash. His white blood count is normal at 5.5 with a hemoglobin of 11.7 and platelets of 167. He has no apparent lytic lesions on the current chest x- ray and right knee x-ray but does have a large joint effusion and moderate osteoarthritis on the right knee. The right wrist, right shoulder and head CT are read as normal. 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 Yuly is his backup decision maker. Dr. Nance is his primary care physician. Safety & Behavioral: Feels Safe in Current Yes Environment Been Physically Hurt or No Threatened By a Person Tobacco & Substance use: Smoking Status Never smoker Substance Use Type does not use Meds Home Medications and Allergies Home Medications Medication Instructions Recorded Confirmed Type omega-3 fatty acids 1 tab DAILY 01/03/20 06/17/21 History Memory Supplement 1 tab DAILY 12/24/20 06/17/21 History ferrous fumarate-docusate ER 150 2 cap PO DAILY 12/24/20 06/17/21 History mg-100 mg capsule,extended release Biost Supplement 1 tab DAILY 04/02/21 06/17/21 History calcium-magnesium 750 mg-465 mg 1 tab PO DAILY 04/02/21 06/17/21 History tablet ibuprofen 300 mg tablet 600 mg PO Q6H PRN 04/02/21 06/17/21 History acyclovir 400 mg tablet 400 mg PO BID #60 tab 07/08/21 Rx dexamethasone 4 mg tablet 20 mg PO WEEKLY #20 tab 07/08/21 Rx (Decadron) lenalidomide 25 mg capsule 25 mg PO DAILY 14 Days #14 cap 07/15/21 Rx Allergies Allergy/AdvReac Type Severity Reaction Status Date / Time No Known Drug Allergies Allergy Verified 01/03/20 10:36 Review of Systems Review of Systems Narrative: Positive for fevers, sweats, joint pain, weakness. Positive for mild cough. Negative for nausea, vomiting, abdominal pain, bleeding, rash, seizures, headaches, chest pain and diarrhea. Exam Vital Signs (past 8 hours): - 07/26/21 14:38 07/26/21 14:52 07/26/21 15:00 Temperature 99.8 F H Pulse Rate 107 H 102 H 104 H Respiratory Rate 20 27 H Blood Pressure 120/59 L Pulse Oximetry 97 96 96 07/26/21 15:11 07/26/21 15:15 07/26/21 15:30 Temperature Pulse Rate 102 H 104 H 96 H Respiratory Rate 27 H 27 H 25 H Blood Pressure 124/66 125/59 L Pulse Oximetry 96 97 98 07/26/21 15:45 07/26/21 16:00 07/26/21 16:15 Temperature Pulse Rate 93 H 91 H 91 H Respiratory Rate 22 25 H 20 Blood Pressure 120/57 L Pulse Oximetry 97 97 95 07/26/21 16:30 07/26/21 16:45 07/26/21 17:00 Temperature Pulse Rate 91 H 89 89 Respiratory Rate 21 20 20 Blood Pressure 119/56 L 119/56 L 119/56 L Pulse Oximetry 94 96 93 07/26/21 17:15 07/26/21 17:30 07/26/21 17:45 Temperature Pulse Rate 88 91 H 87 Respiratory Rate 20 20 22 Blood Pressure 120/58 L Pulse Oximetry 93 97 95 07/26/21 17:57 07/26/21 18:00 07/26/21 18:15 Temperature 96.7 F L Pulse Rate 89 92 H Respiratory Rate 20 20 Blood Pressure 120/58 L Pulse Oximetry 96 97 07/26/21 18:30 07/26/21 18:45 07/26/21 19:00 Temperature Pulse Rate 89 90 87 Respiratory Rate 24 21 21 Blood Pressure Pulse Oximetry 94 92 96 Oxygen Delivery Method Room Air Narrative Exam Narrative: He is alert and oriented x3. He is in moderate distress from joint pain and swelling. Pupils are equally round and reactive to light and accommodation. Extraocular muscles are intact. Sclerae are pink and nonicteric. Conjunctiva are mildly injected Throat looks normal No lymph nodes are felt head, neck, supraclavicular area There is no thyromegaly JVD is less than 6 cm No carotid bruits are heard Heart is regular rate and rhythm without murmur Lungs are clear to auscultation bilaterally Abdomen is soft, bowel sounds positive, nontender, no organomegaly. Extremities have no ankle edema Joints are notable for synovial swelling and tenderness in both wrists and both knees. Most significant is the right knee which appears to be moderately swollen with joint fluid. Aspiration of the right knee documents 1 mL of viscous fluid consistent with most of the swelling being in the synovial areas. Skin has no rash, jaundice, petechia, purpura Neuro exam Cranial nerves 2-12 test intact Motor function is limited by joint pain and guarding but appears to be somewhat diminished diffusely Range of motion of the wrists are both limited as are the knees Reflexes are normal There is no tremor Objective Labs Result Diagrams: 07/26/21 15:01 07/26/21 15:01 Labs: Laboratory Results - last 24 hr 07/26/21 07/26/21 07/26/21 15:01 15:01 15:01 WBC 5.5 RBC 3.85 L Hgb 11.7 L Hct 35.2 L MCV 91.6 MCH 30.4 MCHC 33.2 RDW 17.4 H Plt Count 167 Neut % (Auto) 83.5 H Lymph % (Auto) 2.6 L [place] % (Auto) 13.8 Eos % (Auto) 0.0 L Baso % (Auto) 0.1 Neut # (Auto) 4600 Lymph # (Auto) 100 L [place] # (Auto) 800 Eos # (Auto) 0 Baso # (Auto) 0 ESR Sodium 137 Potassium 4.1 Chloride 102 Carbon Dioxide 26 BUN 20 Creatinine 1.23 Estimated GFR 58.2 L BUN/Creatinine Ratio 16.3 Glucose 181 H Lactate 1.8 Calcium 7.3 L Total Bilirubin 1.0 AST 22 ALT 25 Alkaline Phosphatase 89 Total Creatine Kinase 31 L CK-MB (CK-2) TNP CK-MB (CK-2) Rel Index TNP Troponin I < 0.012 C-Reactive Protein Total Protein 7.6 Albumin 3.9 Globulin 3.7 Albumin/Globulin Ratio 1.1 Lipase 14 L Procalcitonin 0.65 H SARS-CoV-2 (PCR) 07/26/21 07/26/21 07/26/21 15:01 15:01 15:17 WBC RBC Hgb Hct MCV MCH MCHC RDW Plt Count Neut % (Auto) Lymph % (Auto) [place] % (Auto) Eos % (Auto) Baso % (Auto) Neut # (Auto) Lymph # (Auto) [place] # (Auto) Eos # (Auto) Baso # (Auto) ESR > 140 H Sodium Potassium Chloride Carbon Dioxide BUN Creatinine Estimated GFR BUN/Creatinine Ratio Glucose Lactate Calcium Total Bilirubin AST ALT Alkaline Phosphatase Total Creatine Kinase CK-MB (CK-2) CK-MB (CK-2) Rel Index Troponin I C-Reactive Protein 29.4 H Total Protein Albumin Globulin Albumin/Globulin Ratio Lipase Procalcitonin SARS-CoV-2 (PCR) Negative Assessment & Plan Assessment & Plan narrative: This is a 70-year-old male with diffuse jamel yarthralgia, elevated sed rate and CRP, immobilized by joint pain. He is under treatment for multiple myeloma and hairy cell leukemia. Diffuse Polyarthralgia, present on admission. Active. -right knee joint aspiration with viscous fluid sent for crystals. -right knee injected with 4 mg of dexamethasone on admission on 07/26/2021 -uric acid level and rheumatoid factor pending -follow-up CRP 07/27 -begin appropriate gout treatment if confirmed -oral hydrocodone and IV Dilaudid as needed. Probable Gout, present on admission. Active. -pending uric acid level and joint fluid evaluation -begin colchicine versus prednisone depending on joint fluid results and CRP trending -possible orthopedic consultation 07/27/2021 Generalized weakness/deconditioning, present on admission. Active. -this appears to be a function of the diffuse polyarthralgia. -once joint pain improves consider physical therapy evaluation. Hairy Cell Leukemia, present on admission. Chronic. -treated in 2011 Multiple Myeloma, present admission. Active. -no current lytic lesions described on x-rays of right wrist, right shoulder, right knee and his CT. -2 prior compression fractures -holding lenalidomide, possible precipitant of polyarthralgia/gout -normal white blood count, hemoglobin, platelets on admission Lovenox for DVT prevention Continue regular diet Possible orthopedic consultation in the morning Time Spent With Patient Critical Care time: I spent a total of [] minutes of critical care time on this patient's care today; this time is exclusive of procedural time.
--- NOTE | 2021-07-26 20:34 | PM.PROC.1 ---
Procedures Date/Time Date of procedure: 07/26/21 Time of procedure: 20:37 Joint Aspiration/Injection Time out performed: Yes Side of body: right Joint aspirated: knee Ultrasound guidance: No Skin prep: sterile prep and drape Local anesthesia used: lidocaine 1% Needle size used: 22G Fluid obtained: viscous Total fluid obtained (ml): 1 Medication injected, if any: other (Dexamethasone 4 mg) Amount of medication injected (ml): 1 Patient tolerated procedure: well Complications: none Additional comments: Clinical impression of a large amount of joint fluid was not matched by the only 1 ml of fluid obtained
[2021-07-26] MEDS: SODIUM CHLORIDE 0.9% 1,000 ML 100 ML IV (21:44)
[2021-07-26] MEDS: HYDROCODONE/ACET 5/325 TABLET 1 TAB PO (21:45)
[2021-07-26] MEDS: ACYCLOVIR 400 MG TABLET PO (21:45)
[2021-07-26 21:50] LABS: Crystals Body Fluid - IN-HOUSE NONE Present
[2021-07-26] MEDS: DEXAMETHASONE 4 MG/ML VIAL (22:50)
[2021-07-26] MEDS: LIDOCAINE 1% 20 ML (22:53)
--- NOTE | 2021-07-26 23:38 | PC.ADMIT ---
[phone] Admission Note: Patient arrived to floor at 1715 from ER. Patient oriented to room and shown how to use call light. Brakes on bed are locked. The patient,Praful Silva,70 y/o, was given written information regarding hospital policies, unit procedures and contact persons. Patient's smoking status: Never smoker. Vital Signs - 8 hr 07/26/21 15:45 07/26/21 16:00 07/26/21 16:15 Temperature Pulse Rate 93 H 91 H 91 H Respiratory Rate 22 25 H 20 Blood Pressure 120/57 L Pulse Oximetry 97 97 95 07/26/21 16:30 07/26/21 16:45 07/26/21 17:00 Temperature Pulse Rate 91 H 89 89 Respiratory Rate 21 20 20 Blood Pressure 119/56 L 119/56 L 119/56 L Pulse Oximetry 94 96 93 07/26/21 17:15 07/26/21 17:30 07/26/21 17:45 Temperature 99.3 F Pulse Rate 80 91 H 87 Respiratory Rate 18 20 22 Blood Pressure 109/57 L 120/58 L Pulse Oximetry 95 97 95 07/26/21 17:57 07/26/21 18:00 07/26/21 18:15 Temperature 96.7 F L Pulse Rate 89 92 H Respiratory Rate 20 20 Blood Pressure 120/58 L Pulse Oximetry 96 97 07/26/21 18:30 07/26/21 18:45 07/26/21 19:00 Temperature Pulse Rate 89 90 87 Respiratory Rate 24 21 21 Blood Pressure Pulse Oximetry 94 92 96
[2021-07-26 23:41] LABS: Appearance Urine UA CLEAR; Bilirubin Urine UA NEGATIVE (NEGATIVE); Glucose Urine UA TRACE g/dL (Negative); Ketones Urine UA NEGATIVE (NEGATIVE); Leukocyte Esterase Urine UA TRACE (NEGATIVE); Nitrite Urine UA NEGATIVE (Negative); Occult Blood Urine UA NEGATIVE (Negative); Protein Urine UA 1+ (Negative); Specific Gravity Urine UA 1.025 (1.000-1.035); Urobilinogen Urine UA 0.2 E.U./dL (0.2)
[2021-07-26 23:46] LABS: Color Urine UA Dark Yellow
[2021-07-26 23:48] LABS: RBC Urine 0-1/HPF (0-5/HPF); WBC Urine 0-1/HPF (0-5/HPF)
[2021-07-26 23:49] LABS: Amorphous Sediment Urine 1+; Bacteria Urine Moderate (10-30); Culture Indicated Urine Specimen Cultured; Granular Casts Urine 5-10/LPF; Hyaline Casts Urine 5-10/LPF; Mucus Urine 2+ (Negative); Squamous Epithelial Cell Urine 0-1 /HPF (0-5/HPF)
[2021-07-27] VITALS: BP 121/58; PULSE 83; RESP 18; TEMP 36.6; O2SAT 92
[2021-07-27] MEDS: HYDROCODONE/ACET 5/325 TABLET 1 TAB PO ×2 (02:23→08:31)
[2021-07-27 05:27] LABS: Add Manual Diff / Slide Review NO; Basophils Absolute Auto 0 /uL (0-100); Basophils Percent Auto 0.1 % (0-2); Eosinophils Absolute Auto 0 /uL (0-450); Hematocrit 31.3 % (41-53); Hemoglobin 10.2 g/dL (13.5-17.5); Lymphocytes Absolute Auto 200 /uL (1100-4500); Lymphocytes Percent Auto 3.5 % (25-40); Mean Corpuscular HGB Conc 32.6 % (30-36); Mean Corpuscular Hemoglobin 30.2 PG (26-34); Mean Corpuscular Volume 92.6 fL (80-100); Monocytes Absolute Auto 400 /uL (0-900); Monocytes Percent Auto 9.1 % (3-14); Neutrophils Absolute Auto 4000 /uL (1500-7000); Neutrophils Percent Auto 87.3 % (50-75); Platelet Count 150 X10^3/uL (150-400); Red Blood Cell Count 3.38 X10^6/uL (4.5-5.9); Red Cell Distribution Width 17.5 % (11.6-14.8); White Blood Cell Count 4.6 X10^3/uL (4.5-11.0)
[2021-07-27 05:41] LABS: Alanine Aminotransferase 17 IU/L (<50); Albumin 3.2 g/dL (3.5-5.0); Alkaline Phosphatase 68 U/L (38-126); Aspartate Aminotransferase 17 IU/L (17-59); BUN Creatinine Ratio 20.4 (6-22); Bilirubin Total 0.5 mg/dL (0.2-1.3); Blood Urea Nitrogen 23 mg/dL (9-20); Carbon Dioxide 26 mmol/L (22-32); Chloride 107 mmol/L (98-107); Estimated Glomerular Filt Rate > 60.0 mL/min (>60); Globulin 3.3 g/dL (1.7-4.1); Glucose 133 mg/dL (80-110); HEMOLYSIS < 15 (0-50); Potassium 4.4 mmol/L (3.4-5.1); Sodium 138 mmol/L (137-145); Total Protein 6.5 g/dL (6.3-8.2)
[2021-07-27 05:54] LABS: C-Reactive Protein Quant 25.4 mg/dL (<1.0)
[2021-07-27 05:56] LABS: Calcium 6.3 mg/dL (8.4-10.2)
[2021-07-27 07:49] VITALS: BP 122/64; PULSE 63; RESP 18; TEMP 36.1; O2SAT 98
[2021-07-27] MEDS: SODIUM CHLORIDE 0.9% 1,000 ML 100 ML IV (07:53)
[2021-07-27] MEDS: ENOXAPARIN 40 MG/0.4 ML SYRINGE SUBCUT (08:31)
[2021-07-27] MEDS: predniSONE 20 MG TABLET 40 MG PO (08:31)
[2021-07-27] MEDS: ACYCLOVIR 400 MG TABLET PO ×2 (08:31→20:51)
[2021-07-27] MEDS: CALCIUM GLUCONATE 9.3 MEQ in SODIUM CHLORIDE 0.9% 50 ML 140 ML IV (09:20)
[2021-07-27 09:29] LABS: Magnesium 2.6 mg/dL (1.6-2.3)
--- NOTE | 2021-07-27 14:12 | PT.IIE ---
Current Diagnoses Pain in unspecified joint (07/26/21) Medical History (Last Updated 07/26/21 @ 21:20 by Lucinda Miranda MD) Compression fracture Gout Hairy cell leukemia Multiple myeloma Physical Therapy Inpatient Evaluation/Re-Eval M1 PT/OT-IP Prior Functional Status Start: 07/27/21 12:56 Freq: NEEDED Status: Active Protocol: Document 07/27/21 13:52 [facility] (Rec: 07/27/21 14:12 [facility] [id number]) Medical Review Prior Functional Status Medical History Reviewed Yes Diet/Fluid Consistency Regular Communication communication with pts who was in the room prior to treatment. Pt lives on [place] with his . He has history of hairy cell leukemia currently being treated for multiple myeloma. 6 days ago he began presenting with increasing joint pain on the right side of his body and 2 days ago became so weak and painful that his Yuly and son were not able to transfer him out of the bathroom. Prior Functional Level (Other details) pt has been ambulatory at home and up until 3 days ago he was still working some but becoming more fatigued with work Social History Household Members spouse Living Arrangements House Number of Floors (Floors) Two Floors Home Environment Standard Height Toilet M2 PT-IP Current Condition Start: 07/27/21 12:56 Freq: NEEDED Status: Active Protocol: Document 07/27/21 13:52 [facility] (Rec: 07/27/21 14:12 [facility] [id number]) Physical Therapy Current Condition Current Condition Evaluation Date 07/27/21 Treatment Diagnosis Dizzyness, reaction to medications, severe joint pain right side Onset Date 6 days ago Weight Bearing Status Weight Bearing Status Full Weight Bearing M3 PT-IP Subjective Start: 07/27/21 12:56 Freq: NEEDED Status: Active Protocol: Document 07/27/21 13:52 [facility] (Rec: 07/27/21 14:12 [facility] [id number]) Subjective Physical Therapy Visit Type Type Initial Evaluation Visit Start Time 12:45 Visit Stop Time 13:25 Total Visit Minutes 40 Notes co treat with [facility] Physical Therapy Visit Comments Patient Comments pt is asleep when I entered the room and spoke with his regarding his status and care. He then woke up and had heard our conversation saying he is thankful his is here. He agreed to try PT and reports his pain levels seem better. Patient Goals pts goals are to decrease pain and dizziness Therapy Pain Assessment Pain When Pain Assessed During Mobility Pain Present Pain Present Pain Reported Location Right Shoulder Scale Used Estrella (Faces) M4 PT-IP Mobility and Gait Start: 07/27/21 12:56 Freq: NEEDED Status: Active Protocol: Document 07/27/21 13:52 [facility] (Rec: 07/27/21 14:12 [facility] [id number]) PT-Bed Mobility Assessment Sit to Supine Sit to Supine Minimal Assistance Scooting Scooting to Edge of Bed Minimal Assistance Scooting Up and Down in Bed Minimal Assistance PT-Transfer Assessment Sit to and From Stand Sit to and from Stand Minimal Assistance Equipment Transfer Assistive Device Gait Belt,Front Wheeled Walker Transfers Transfer Destination Bed Transfer Technique Stand Step Pivot Transfer Ability Level of Assist Minimal Assistance Comments Mobility Comments [facility] and PT present for transfers as he had required max A x 2 people to get him up from the bathroom at home. He noted though that his pain levels were considerably down and that pain was the limiting factor at home limiting his mobility. Pt was min A for bed mobility, once seated he noted that he is not dizzy. Pain was reduced however he still noted right sided shoulder pain. He and his both pointed out that this was much improved as he had been experiencing from supine to sit previously. Pt was able to perform sit-stand with Min A. using his left hand to press up from the bed. Once standing he was able to place both hands on the walker. He noted he felt much better than he had felt and he wanted to attempt gait. Praful was able to ambulate in his room x 15 feet with Min A. He transferred to the bedside chair and noted it felt good to sit up. He did not wish to be reclined. His was present for treatment and was still in his room when we left . He was positioned comfortably and his call light was placed within reach. Gait Assessment Gait Gait Assistance Required: Minimum Assistance,1 Person Assist Able to Maintain Weight Bearing Status Yes During Gait Assistive Devices Assistive Device Gait Belt,Front Wheeled Walker Gait Deviations General Gait Pattern Antalgic,Decreased Stride Length Factors Limiting Gait Function Factors Limiting Gait Function Pain Comments Gait Comments pt able to ambulate in room without loss of balance and Min A He had been having previous right knee pain but this was much improved. He reported feeling likesuperman PT-Balance Assessment Sitting Balance and Reactions Static Sitting Balance Ability Good Dynamic Sitting Balance Ability Good Standing Balance and Reactions Static Standing Balance Ability Good Dynamic Standing Balance Ability Good M5 PT-IP Objective Assessments Start: 07/27/21 12:56 Freq: NEEDED Status: Active Protocol: Document 07/27/21 13:52 [facility] (Rec: 07/27/21 14:12 [facility] [id number]) Orientation Orientation/Cognition Level of Alertness Alert Orientation Name,Age,Birthday,Month,Date, Year,Day of Week,Place, Situation Language Function Ability No Deficits Noted Safety Awareness Understands Safety Issues Memory Description No Deficits Noted Gross Range of Motion Upper Extremity ROM Assessment Within Functional Limits Lower Extremity ROM Assessment Within Functional Limits Strength Upper Extremity Strength Assessment Within Functional Limits Lower Extremity Strength Assessment Within Functional Limits Coordination Assessment Gross Coordination Gross Coordination WNL M7 PT-IP Assessment and Plan Start: 07/27/21 12:56 Freq: NEEDED Status: Active Protocol: Document 07/27/21 13:52 [facility] (Rec: 07/27/21 14:12 [facility] [id number]) PT Summary Assessment and Plan Potential Rehabilitation Potential Good Status of Condition at Evaluation Stable Summary Impairments Pain,Transfers,Gait,Activity Tolerance Goals Bed Mobility Goal Independent Transfer Goal Standby Assistance Gait Goal Standby Assistance Gait Distance 100 ft Frequency of Treatment Frequency Of Treatment Twice a Day Treatment Plan Physical Therapy Treatment Plan Bed Mobility Training,Transfer Training,Gait Training, Therapeutic Exercise Recommendations To Nursing Amount of Assist Needed 1 Person Assist Discharge Recommendations PT Discharge Recommendations Home Equipment Needed for Home Before tall fww for home Discharge Transportation Needs at Discharge Private Vehicle
--- NOTE | 2021-07-27 14:38 | PM.PN.1 ---
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 Patient had right knee arthrodesis with 1 cc fluid removed without evidence of crystals. He had intra-articular right knee steroid injection and started on oral prednisone. He reports some improvement in joint pains although not yet mobilized out of bed. Exam Vital Signs (past 8 hours): - 07/27/21 07:49 Temperature 97 F L Pulse Rate 63 Respiratory Rate 18 Blood Pressure 122/64 Pulse Oximetry 98 Oxygen Delivery Method Room Air Oxygen Flow Rate 0 Narrative Exam Narrative: General: Alert, NAD Musculoskeletal: There is apparent bilateral knee effusions as well as bilateral wrist diffusion, no ?hot ?or erythematous joints Objective Labs Result Diagrams: 07/27/21 05:01 07/27/21 05:01 Labs: Laboratory Results - last 24 hr 07/26/21 07/26/21 07/26/21 15:01 15:01 15:01 WBC 5.5 RBC 3.85 L Hgb 11.7 L Hct 35.2 L MCV 91.6 MCH 30.4 MCHC 33.2 RDW 17.4 H Plt Count 167 Neut % (Auto) 83.5 H Lymph % (Auto) 2.6 L Elliott % (Auto) 13.8 Eos % (Auto) 0.0 L Baso % (Auto) 0.1 Neut # (Auto) 4600 Lymph # (Auto) 100 L Elliott # (Auto) 800 Eos # (Auto) 0 Baso # (Auto) 0 ESR Sodium 137 Potassium 4.1 Chloride 102 Carbon Dioxide 26 BUN 20 Creatinine 1.23 Estimated GFR 58.2 L BUN/Creatinine Ratio 16.3 Glucose 181 H Lactate 1.8 Uric Acid Calcium 7.3 L Magnesium Total Bilirubin 1.0 AST 22 ALT 25 Alkaline Phosphatase 89 Total Creatine Kinase 31 L CK-MB (CK-2) TNP CK-MB (CK-2) Rel Index TNP Troponin I < 0.012 C-Reactive Protein Total Protein 7.6 Albumin 3.9 Globulin 3.7 Albumin/Globulin Ratio 1.1 Lipase 14 L Procalcitonin 0.65 H Urine Color Urine Appearance Urine pH Ur Specific Draper Urine Protein Urine Glucose (UA) Urine Ketones Urine Occult Blood Urine Nitrate Urine Bilirubin Urine Urobilinogen Ur Leukocyte Esterase Urine RBC Urine WBC Ur Squamous Epith Cells Amorphous Sediment Urine Bacteria Hyaline Casts Granular Casts Urine Mucus Ur Culture Indicated? Fluid Crystals SARS-CoV-2 (PCR) 07/26/21 07/26/21 07/26/21 15:01 15:01 15:01 WBC RBC Hgb Hct MCV MCH MCHC RDW Plt Count Neut % (Auto) Lymph % (Auto) Elliott % (Auto) Eos % (Auto) Baso % (Auto) Neut # (Auto) Lymph # (Auto) Elliott # (Auto) Eos # (Auto) Baso # (Auto) ESR > 140 H Sodium Potassium Chloride Carbon Dioxide BUN Creatinine Estimated GFR BUN/Creatinine Ratio Glucose Lactate Uric Acid 5.0 Calcium Magnesium Total Bilirubin AST ALT Alkaline Phosphatase Total Creatine Kinase CK-MB (CK-2) CK-MB (CK-2) Rel Index Troponin I C-Reactive Protein 29.4 H Total Protein Albumin Globulin Albumin/Globulin Ratio Lipase Procalcitonin Urine Color Urine Appearance Urine pH Ur Specific Draper Urine Protein Urine Glucose (UA) Urine Ketones Urine Occult Blood Urine Nitrate Urine Bilirubin Urine Urobilinogen Ur Leukocyte Esterase Urine RBC Urine WBC Ur Squamous Epith Cells Amorphous Sediment Urine Bacteria Hyaline Casts Granular Casts Urine Mucus Ur Culture Indicated? Fluid Crystals SARS-CoV-2 (PCR) 07/26/21 07/26/21 07/26/21 15:17 20:50 23:25 WBC RBC Hgb Hct MCV MCH MCHC RDW Plt Count Neut % (Auto) Lymph % (Auto) Elliott % (Auto) Eos % (Auto) Baso % (Auto) Neut # (Auto) Lymph # (Auto) Elliott # (Auto) Eos # (Auto) Baso # (Auto) ESR Sodium Potassium Chloride Carbon Dioxide BUN Creatinine Estimated GFR BUN/Creatinine Ratio Glucose Lactate Uric Acid Calcium Magnesium Total Bilirubin AST ALT Alkaline Phosphatase Total Creatine Kinase CK-MB (CK-2) CK-MB (CK-2) Rel Index Troponin I C-Reactive Protein Total Protein Albumin Globulin Albumin/Globulin Ratio Lipase Procalcitonin Urine Color Dark yellow Urine Appearance Clear Urine pH 5.0 Ur Specific Draper 1.025 Urine Protein 1+ H Urine Glucose (UA) Trace H Urine Ketones Negative Urine Occult Blood Negative Urine Nitrate Negative Urine Bilirubin Negative Urine Urobilinogen 0.2 Ur Leukocyte Esterase Trace H Urine RBC 0-1/hpf Urine WBC 0-1/hpf Ur Squamous Epith Cells 0-1 /hpf Amorphous Sediment 1+ Urine Bacteria Moderate (10-30) H Hyaline Casts 5-10/lpf Granular Casts 5-10/lpf Urine Mucus 2+ H Ur Culture Indicated? Specimen cultured Fluid Crystals None present SARS-CoV-2 (PCR) Negative 07/27/21 07/27/21 07/27/21 05:01 05:01 05:01 WBC 4.6 RBC 3.38 L Hgb 10.2 L Hct 31.3 L MCV 92.6 MCH 30.2 MCHC 32.6 RDW 17.5 H Plt Count 150 Neut % (Auto) 87.3 H Lymph % (Auto) 3.5 L Elliott % (Auto) 9.1 Eos % (Auto) 0.0 L Baso % (Auto) 0.1 Neut # (Auto) 4000 Lymph # (Auto) 200 L Elliott # (Auto) 400 Eos # (Auto) 0 Baso # (Auto) 0 ESR Sodium 138 Potassium 4.4 Chloride 107 Carbon Dioxide 26 BUN 23 H Creatinine 1.13 Estimated GFR > 60.0 BUN/Creatinine Ratio 20.4 Glucose 133 H Lactate Uric Acid Calcium 6.3 L* Magnesium Total Bilirubin 0.5 AST 17 ALT 17 Alkaline Phosphatase 68 Total Creatine Kinase CK-MB (CK-2) CK-MB (CK-2) Rel Index Troponin I C-Reactive Protein 25.4 H Total Protein 6.5 Albumin 3.2 L Globulin 3.3 Albumin/Globulin Ratio 1.0 Lipase Procalcitonin Urine Color Urine Appearance Urine pH Ur Specific Draper Urine Protein Urine Glucose (UA) Urine Ketones Urine Occult Blood Urine Nitrate Urine Bilirubin Urine Urobilinogen Ur Leukocyte Esterase Urine RBC Urine WBC Ur Squamous Epith Cells Amorphous Sediment Urine Bacteria Hyaline Casts Granular Casts Urine Mucus Ur Culture Indicated? Fluid Crystals SARS-CoV-2 (PCR) 07/27/21 05:01 WBC RBC Hgb Hct MCV MCH MCHC RDW Plt Count Neut % (Auto) Lymph % (Auto) Elliott % (Auto) Eos % (Auto) Baso % (Auto) Neut # (Auto) Lymph # (Auto) Elliott # (Auto) Eos # (Auto) Baso # (Auto) ESR Sodium Potassium Chloride Carbon Dioxide BUN Creatinine Estimated GFR BUN/Creatinine Ratio Glucose Lactate Uric Acid Calcium Magnesium 2.6 H Total Bilirubin AST ALT Alkaline Phosphatase Total Creatine Kinase CK-MB (CK-2) CK-MB (CK-2) Rel Index Troponin I C-Reactive Protein Total Protein Albumin Globulin Albumin/Globulin Ratio Lipase Procalcitonin Urine Color Urine Appearance Urine pH Ur Specific Draper Urine Protein Urine Glucose (UA) Urine Ketones Urine Occult Blood Urine Nitrate Urine Bilirubin Urine Urobilinogen Ur Leukocyte Esterase Urine RBC Urine WBC Ur Squamous Epith Cells Amorphous Sediment Urine Bacteria Hyaline Casts Granular Casts Urine Mucus Ur Culture Indicated? Fluid Crystals SARS-CoV-2 (PCR) [facility] Medical History (Updated 07/26/21 @ 21:20 by Lucinda Miranda MD) Compression fracture Gout Hairy cell leukemia Multiple myeloma Surgical History (Updated 07/26/21 @ 20:39 by Lucinda Miranda MD) No significant past surgical history Social History household members: spouse Smoking Status: Never smoker Assessment & Plan Assessment & Plan narrative: 1. Diffuse Polyarthralgia, present on admission.? Active. -etiology unclear possibly pseudogout versus new onset rheumatoid arthritis or other inflammatory arthritis, cannot rule out side effect from multiple myeloma treatments, patient has history of gout but joints do not look typical of acute gout -doubt infection as no fever, normal WBC, and no appearance of septic joint -right knee x-ray showed large effusion and moderate osteoarthritis, bilateral wrist x-rays read as normal, shoulder x-ray read is normal -right knee joint aspiration with viscous fluid negative for crystals. -right knee injected with 4 mg of dexamethasone on admission on 07/26/2021 -uric acid level normal, and rheumatoid factor pending -continue prednisone 40 mg q.d. -PT consult to assess mobility for return home 2. Hairy Cell Leukemia, present on admission.? Chronic. -treated in 2011 3. Multiple Myeloma, present admission.? Active. -no current lytic lesions described on x-rays of right wrist, right shoulder, right knee and his CT. -2 prior compression fractures -holding lenalidomide, possible precipitant of polyarthralgia/gout -normal white blood count, hemoglobin, platelets on admission 4. Acute hypocalcemia -serum calcium 7.2 on admit, 6.3 on 07/27 with albumin 3.2 verses normal serum calcium 8.7 on 07/15/2021 -unclear etiology but possibly related to steroid -normal magnesium -ordered calcium gluconate 9.3 mEq x1, recheck this afternoon and in a.m. DVT prophylaxis: Lovenox Time Spent With Patient Critical Care time: I spent a total of [] minutes of critical care time on this patient's care today; this time is exclusive of procedural time. Quality VTE Deep Vein Thrombosis/Pulmonary Embolism Present on Admission: No
--- NOTE | 2021-07-27 14:44 | CM.DANOTE ---
DCP Assessment: patient is a 70 yr old male who had leukemia since 2011, and admitted for extensive leg swelling. CM met with patient and his mirtha at the bedside and explained role. patient was alert and oriented at time of CM Visit. CM currently in a two story house on [address] lives with his and his daughter lives a few houses away. Patient only has to climb three steps into his house. patient is Independent at baseline with all ADLs. Currently PT states he is a 1 person assist and uses a FWW. Patient does not currently have a FWW and stated they will need one at home when he leaves. CM will place FWW order for patient and will give patient information about places in [place] they can purchase any other DME they may need. Patients plans on transporting patient home by Personal vehicle and ferry. I: Medicare and self pay Plan: DC home with with FWW when Medically stable. CM will pace FWW order for PT. Radha Johnson RN Case Manager Discharge Planning/Care Management CM Discharge Assessment Start: 07/27/21 14:41 Freq: Status: Active Protocol: Document 07/27/21 14:41 HS (Rec: 07/27/21 14:44 HS [id number]) Discharge Planning Assessment Assigned Pattern Puncher Radha Johnson RN DPOA/Assigned Designee Name Mirtha () Contact Information [phone] Advance Directives? No History Provided By Patient,Significant Other Has Patient been admitted in last 30 No days? Prior Living Arrangements House Household Members spouse Type of transporation used prior to Drives own vehicle admit Independent with ADL's Yes Is patient alert and oriented? Yes Comment could use a Walker Caregiver for Another No Barriers to Discharge No Discharge Plan Home Referrals Initiated None needed Whiteboard Updated in Patient Room with Yes name and ext. # of Pattern Puncher Review Status In Process Next Review Type Continued Stay Review
[2021-07-27 15:00] VITALS: BP 115/62; PULSE 66; RESP 18; TEMP 36.4; O2SAT 99
[2021-07-28] VITALS: BP 99/52; PULSE 70; RESP 16; TEMP 36.3; O2SAT 92
[2021-07-28 05:23] VITALS: BP 127/68
[2021-07-28 05:40] LABS: BUN Creatinine Ratio 31.4 (6-22); Blood Urea Nitrogen 32 mg/dL (9-20); Carbon Dioxide 28 mmol/L (22-32); Chloride 105 mmol/L (98-107); Estimated Glomerular Filt Rate > 60.0 mL/min (>60); Glucose 124 mg/dL (80-110); HEMOLYSIS < 15 (0-50); Potassium 4.3 mmol/L (3.4-5.1); Sodium 137 mmol/L (137-145)
[2021-07-28 08:00] VITALS: BP 129/70; PULSE 72; RESP 16; TEMP 35.8
[2021-07-28] MEDS: ACYCLOVIR 400 MG TABLET PO (08:46)
[2021-07-28] MEDS: SODIUM CHLORIDE 0.9% FLUSH 10 ML IV (08:46)
[2021-07-28] MEDS: predniSONE 20 MG TABLET 40 MG PO (08:46)
[2021-07-28] MEDS: ENOXAPARIN 40 MG/0.4 ML SYRINGE SUBCUT (08:46)
--- NOTE | 2021-07-28 10:16 | PC.NURSE ---
Patient up to restroom for void. Denies pain, SOB, N/V. Reports mobility is improving in RLE. Patient using FWW. Followed up with PT to see about FWW for discharge. Two PIV removed for discharge, patient tolerated. Patient and given discharge instructions regarding f/u appointments, fall risk, s/s of worsening condition, new prescriptions and activity. Patient and verbalized understanding. Pharmacist in room to give discharge instructions on new prescription. Patient discharged via wheelchair with aide assist
--- NOTE | 2021-07-28 10:40 | PT.IPTN ---
Current Diagnoses Pain in unspecified joint (07/26/21) Physical Therapy Treatment Note M2 PT-IP Current Condition Start: 07/27/21 12:56 Freq: NEEDED Status: Discharge Protocol: Document 07/27/21 13:52 [facility] (Rec: 07/27/21 14:12 [facility] [id number]) Physical Therapy Current Condition Current Condition Evaluation Date 07/27/21 Treatment Diagnosis Dizzyness, reaction to medications, severe joint pain right side Onset Date 6 days ago Weight Bearing Status Weight Bearing Status Full Weight Bearing M3 PT-IP Subjective Start: 07/27/21 12:56 Freq: NEEDED Status: Discharge Protocol: Document 07/28/21 10:40 AW (Rec: 07/28/21 10:43 AW [id number]) Subjective Physical Therapy Visit Type Type Treatment Note Visit Start Time 10:32 Visit Stop Time 10:40 Total Visit Minutes 8 Physical Therapy Visit Comments Patient Comments Pt is sitting up in w/c, dressed and waiting for discharge. M4 PT-IP Mobility and Gait Start: 07/27/21 12:56 Freq: NEEDED Status: Discharge Protocol: Document 07/27/21 13:52 [facility] (Rec: 07/27/21 14:12 [facility] [id number]) PT-Bed Mobility Assessment Sit to Supine Sit to Supine Minimal Assistance Scooting Scooting to Edge of Bed Minimal Assistance Scooting Up and Down in Bed Minimal Assistance PT-Transfer Assessment Sit to and From Stand Sit to and from Stand Minimal Assistance Equipment Transfer Assistive Device Gait Belt,Front Wheeled Walker Transfers Transfer Destination Bed Transfer Technique Stand Step Pivot Transfer Ability Level of Assist Minimal Assistance Comments Mobility Comments AIR DIRECTOR and PT present for transfers as he had required max A x 2 people to get him up from the bathroom at home. He noted though that his pain levels were considerably down and that pain was the limiting factor at home limiting his mobility. Pt was min A for bed mobility, once seated he noted that he is not dizzy. Pain was reduced however he still noted right sided shoulder pain. He and his both pointed out that this was much improved as he had been experiencing from supine to sit previously. Pt was able to perform sit-stand with Min A. using his left hand to press up from the bed. Once standing he was able to place both hands on the walker. He noted he felt much better than he had felt and he wanted to attempt gait. Praful was able to ambulate in his room x 15 feet with Min A. He transfered to the bedside chair and noted it felt good to sit up. He did not wish to be reclined. His was present for treatment and was still in his room when we left . He was positioned comfortably and his call light was placed within reach. Gait Assessment Gait Gait Assistance Required: Minimum Assistance,1 Person Assist Able to Maintain Weight Bearing Status Yes During Gait Assistive Devices Assistive Device Gait Belt,Front Wheeled Walker Gait Deviations General Gait Pattern Antalgic,Decreased Stride Length Factors Limiting Gait Function Factors Limiting Gait Function Pain Comments Gait Comments pt able to ambulate in room without loss of balance and Min A He had been having previous right knee pain but this was much improved. He reported feeling likesuperman PT-Balance Assessment Sitting Balance and Reactions Static Sitting Balance Ability Good Dynamic Sitting Balance Ability Good Standing Balance and Reactions Static Standing Balance Ability Good Dynamic Standing Balance Ability Good M5 PT-IP Objective Assessments Start: 07/27/21 12:56 Freq: NEEDED Status: Discharge Protocol: Document 07/27/21 13:52 [facility] (Rec: 07/27/21 14:12 [facility] [id number]) Orientation Orientation/Cognition Level of Alertness Alert Orientation Name,Age,Birthday,Month,Date, Year,Day of Week,Place, Situation Language Function Ability No Deficits Noted Safety Awareness Understands Safety Issues Memory Description No Deficits Noted Gross Range of Motion Upper Extremity ROM Assessment Within Functional Limits Lower Extremity ROM Assessment Within Functional Limits Strength Upper Extremity Strength Assessment Within Functional Limits Lower Extremity Strength Assessment Within Functional Limits Coordination Assessment Gross Coordination Gross Coordination WNL M6 PT-IP Treatment Start: 07/27/21 12:56 Freq: NEEDED Status: Discharge Protocol: Document 07/28/21 10:40 AW (Rec: 07/28/21 10:43 AW [id number]) Physical Therapy Treatment Education Education Provided Safety Equipment Issued Equipment Type and Company Standard size FWW from [employer] Other Treatments Other Treatment Performed Sized FWW for pt and educated pt and his on its safe use. M7 PT-IP Assessment and Plan Start: 07/27/21 12:56 Freq: NEEDED Status: Discharge Protocol: Document 07/28/21 10:40 AW (Rec: 07/28/21 10:43 AW [id number]) PT Summary Assessment and Plan Summary Assessment Summary Pt is stable for discharge. Issued and sized FWW for home use. Answered pt's and his 's questions. Goals Bed Mobility Goal Independent Transfer Goal Standby Assistance Gait Goal Standby Assistance Gait Distance 100 ft Frequency of Treatment Frequency Of Treatment Discharge Recommendations To Nursing Amount of Assist Needed 2 Person Assist Discharge Recommendations PT Discharge Recommendations Home Equipment Needed for Home Before tall fww for home Discharge
--- NOTE | 2021-07-28 18:08 | PM.DS.1 ---
History of Present Illness History of Present Illness Chief complaint: reaction to meds/severe pain and swelling in joint Narrative: This is a 70-year-old male with hairy cell leukemia diagnosed in 2011 and multiple myeloma diagnosed after 2 compression fractures within the last year.? Six days ago he developed bilateral knee pain along with swelling in the? right wrist.? The swelling and pain has made it impossible for him to function and so he has been in bed, weakening over the last 6 days.? He now presents with a sed rate greater than 140, a CRP of 29.4 and a procalcitonin of 0.65.? His COVID test is negative and he is COVID vaccinated.? He is currently under oncologic treatment with lenalidomide along with some various other injection treatments that he does not recall the name of.? He is also on acyclovir but really on no other medications and has no other significant medical history.? He does recall having had gout in several fingers many years ago.? He says this feels much worse than his episode of gout.? His chest x-ray is read as a right base infiltrate which I have reviewed and do not see any signs of.? He has had a mild cough and has felt feverish and sweaty but does not recall any specific temperatures.? There has been no nausea, vomiting, abdominal pain, chest pain, dysuria, rash.? His white blood count is normal at 5.5 with a hemoglobin of 11.7 and platelets of 167.? He has no apparent lytic lesions on the current chest x-ray and right knee x-ray but does have a large joint effusion and moderate osteoarthritis on the right knee.? The right wrist, right shoulder and head CT are read as normal. Discharge Providers Provider Date of admission: 07/26/21 18:23 Discharge Date: 07/28/21 Primary care physician: Isaias Nance MD Consults: 07/27/21 10:04 Consult to Physical Therapy Evaluate & Treat Comment: Physician Instructions: Evaluate and Treat 07/27/21 15:02 Consult to Home Health Routine Comment: Medication reaction multiple leg swelling Reason For Exam: FWW for home use Discharge provider: Pierre Palmer MD Summary Hospital Course Discharge Diagnosis: 1. Acute polyarthritis 2. Acute hypocalcemia 3. Multiple myeloma 4. 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 Patient had right knee arthrodesis with 1 cc fluid removed without evidence of crystals.? He had intra-articular right knee steroid injection and started on oral prednisone.? Patient had marked improvement in joint pain and swelling of wrists and knees with steroid therapy. He is able to mobilize out of bed and walk without much difficulty. He is given 10 day prescription course for prednisone 40 mg q.d. which I recommend he takes for at least 5 days or longer if that is recommended by his oncologist. Patient also developed acute hypocalcemia with serum calcium 7.2 on admit, dropped to 6.3 on following day with corrected serum calcium of 6.9. He was administered calcium gluconate. His follow-up serum calcium level has remained stable at 7.0 (uncorrected). He was not given any additional IV calcium. He is already taking 6 calcium tablets a day in divided doses. His magnesium level was normal at above 2. His serum calcium was 8.7 recently on July 15. As far as etiology of acute polyarthritis, there is concern of whether it could be side effect of one of the multiple myeloma treatments. Similar concern is for what precipitated the acute hypocalcemia. Patient has oncology appointment tomorrow and will review findings with his oncologist. Time Spent with Patient Time spent: Less than 30 minutes Exam Vital Signs (past 8 hours): Oxygen Delivery Method Room Air Oxygen Flow Rate 0 Narrative Exam Narrative: General: Alert and very pleasant male in no distress Joints: Improvement in bilateral wrist and knee effusions, no warmth or erythema Objective Labs Result Diagrams: 07/27/21 05:01 07/28/21 05:06 Labs: Laboratory Results - last 24 hr 07/28/21 05:06 Sodium 137 Potassium 4.3 Chloride 105 Carbon Dioxide 28 BUN 32 H Creatinine 1.02 Estimated GFR > 60.0 BUN/Creatinine Ratio 31.4 H Glucose 124 H Calcium 7.0 L [facility] Medical History (System 07/28/21 @ 08:02 by Lady Tami Chaparro) Compression fracture Gout Hairy cell leukemia Multiple myeloma Surgical History (System 07/28/21 @ 08:02 by Lady Tami Chaparro) No significant past surgical history Discharge Plan Discharge Plan Patient Disposition: Home Provider Discharge Comment: You were treated for acute polyarthritis and hypocalcemia of uncertain cause but possibly due to side effect of one of your cancer therapies. Take prednisone for at least 5 more days or as directed by your oncologist (10 days supply prescribed). Continue on your calcium tablets. Discharge orders & Medications Prescriptions: New prednisone 20 mg tablet 40 mg PO DAILY 10 Days Qty: 20 RF: 0 Continued omega-3 fatty acids 1 tab DAILY RF: 0 ferrous fumarate-docusate 150-100 mg Capsule, Extended Release 2 cap PO DAILY RF: 0 Memory Supplement 2 tab DAILY RF: 0 calcium-magnesium 750-465 mg Tablet See Rx Instructions .ROUTE .COMPLEX RF: 0 Biost Supplement 1 tab DAILY RF: 0 acyclovir 400 mg Tablet 400 mg PO BID Qty: 60 RF: 0 dexamethasone [Decadron] 4 mg Tablet 20 mg PO WEEKLY Qty: 20 RF: 1 lenalidomide 25 mg Capsule 25 mg PO DAILY 14 Days Qty: 14 RF: 2 Follow up/Referrals: Ike Rouse MD [Physician] - 07/29/21 Isaias Nance MD [Primary Care Provider] - Diet/Activity/Treatments Diet: Regular Discharge Data Primary Care Provider: Isaias Nance Quality VTE Deep Vein Thrombosis/Pulmonary Embolism Present on Admission: No
== END 2021-07-28 10:43 | disposition home or self-care (01) | DRG 554 ==
LOC: ED 18:23 → AC 07-27 08:56
PROVIDERS: Family Medicine; Internal Medicine; Admitting Provider Internal Medicine; Emergency Provider Emergency Medicine; PCP Family Medicine; Referring Provider Emergency Medicine; Visit Provider Internal Medicine
DX: M13.0 Polyarthritis, unspecified (principal); C90.00 Multiple myeloma not having achieved remission; E83.51 Hypocalcemia; Z20.822 Contact with and (suspected) exposure to COVID-19; Z85.6 Personal history of leukemia
CPT/HCPCS: 36415; 70450; 71045; 73030; 73110; 73560; 80048; 80053; 81001; 82310; 82550; 83605; 83690; 83735; 84145; 84484; 84550; 85025; 85651; 86140; 87040; 87086; 87635; 89060; 93005; 96361; 96374; 97116; 97161; 97530; 97535; 99284; C9803; J0610; J1100; J1650; J2270

== ENCOUNTER → 2022-04-28 12:55 | Outpatient (CLI) | payer MEDICARE, SELFPAY ==
[2021-07-26 19:38] VITALS: BMI 27.7
--- NOTE | 2022-04-28 12:56 | DI.US.S_ITS ---
PROCEDURE: US PERIPH VENOUS LOW EXTREM LT INDICATIONS: swelling left leg TECHNIQUE: Real-time imaging, as well as color and pulse Doppler interrogation, were performed of the lower extremity deep veins from the inguinal ligament to the popliteal fossa. COMPARISON: None. FINDINGS: The common femoral, femoral and popliteal veins are normally compressible, and free of intraluminal thrombus. Color and pulse Doppler demonstrate normal phasic intraluminal flow. There is normal augmentation response to distal compression maneuver. The calf veins are not well visualized due to soft tissue edema. There is a 1.6 x 4.7 x 15.6 centimeter complex fluid collection in the posterior medial left calf which may represent hematoma. IMPRESSION: No evidence of deep vein thrombosis involving the left lower extremity. Calf veins not well visualized due to soft tissue edema and cannot be evaluated. Dictated by: Mile Tavares MD, PhD on 04/28/2022 at 14:25 Approved by: Mile Tavares MD, PhD on 04/28/2022 at 14:28
== END ==
PROVIDERS: PCP Family Medicine; Referring Provider Internal Medicine Medical Oncology; Visit Provider Internal Medicine Medical Oncology
DX: C90.00 Multiple myeloma not having achieved remission (principal); M79.89 Other specified soft tissue disorders
CPT/HCPCS: 93971

== ENCOUNTER 2022-07-18 18:44 | Emergency (ER) | payer MEDICARE, SELFPAY ==
[2021-07-26 19:38] VITALS: BMI 27.7
[2022-07-18 19:21] VITALS: BP 167/79; PULSE 77; RESP 18; TEMP 36.4; O2SAT 97; BMI 36.6
--- NOTE | 2022-07-18 19:27 | DI.RAD.S_ITS ---
PROCEDURE: XR SHOULDER LT MIN 2V INDICATIONS: trauma left shoulder TECHNIQUE: 3 views of the shoulder were acquired. COMPARISON: [facility], CR, XR SHOULDER RT MIN 2V, 07/26/2021, 15:32. FINDINGS: Bones: No dislocations. There is a distal clavicular fracture just proximal to the AC joint, mildly angulated and moderately comminuted. Additional rib fractures are present, previously described by dedicated report related to rib trauma. No suspicious bony lesions. Visualized ribs appear intact. Soft tissues: No suspicious soft tissue calcifications. IMPRESSION: Distal left clavicular fracture, no scapular fracture found, additional rib fractures have been previously described, no pneumothorax is seen. Dictated by: Eric Meléndez M.D. on 07/18/2022 at 20:30 Approved by: Eric Meléndez M.D. on 07/18/2022 at 20:31
--- NOTE | 2022-07-18 19:27 | DI.RAD.S_ITS ---
PROCEDURE: XR RIBS LT MIN 3V W CXR1V INDICATIONS: trauma left shoulder TECHNIQUE: 5 views of the left ribs were acquired, along with a single view chest. COMPARISON: CT, CT CHEST W CON, 03/06/2020, 10:30. [facility], CR, XR CHEST 2V, 02/27/2020, 8:50. FINDINGS: Surgical changes and devices: None. Bones and chest wall: No dislocations. There are left-sided rib fractures, involving the posterolateral 3rd, 4th, 5th, and 6th ribs. Fractures in this area were not present on a chest plain film 02/27/[address] scanning 03/06/20. No suspicious bony lesions. Overlying soft tissues appear unremarkable. Distal clavicular fracture appears present at the left AC joint. Please refer to dedicated shoulder plain film report from today. Lungs and pleura: No pleural effusions or pneumothorax. Lungs appear clear. Mediastinum: Mediastinal contours appear normal. Heart size is normal. IMPRESSION: Presumably acute rib fractures without identified pneumothorax located on the left, posterolaterally and involving the 3rd through 6th ribs. Also, there appears to be a distal left clavicular fracture at the AC joint. Dictated by: Eric Meléndez M.D. on 07/18/2022 at 20:22 Approved by: Eric Meléndez M.D. on 07/18/2022 at 20:27
[2022-07-18 21:02] VITALS: BP 160/78; PULSE 68; TEMP 37.2; O2SAT 97
[2022-07-18 21:17] LABS: Add Manual Diff / Slide Review NO; Basophils Absolute Auto 0 /uL (0-100); Basophils Percent Auto 0.4 % (0-2); Eosinophils Absolute Auto 0 /uL (0-450); Eosinophils Percent Auto 0.5 % (2-4); Hematocrit 33.1 % (41-53); Hemoglobin 11.3 g/dL (13.5-17.5); Lymphocytes Absolute Auto 400 /uL (1100-4500); Lymphocytes Percent Auto 7.8 % (25-40); Mean Corpuscular HGB Conc 34.3 % (30-36); Mean Corpuscular Volume 90.4 fL (80-100); Monocytes Absolute Auto 300 /uL (0-900); Monocytes Percent Auto 5.5 % (3-14); Neutrophils Absolute Auto 4000 /uL (1500-7000); Neutrophils Percent Auto 85.8 % (50-75); Platelet Count 157 X10^3/uL (150-400); Red Blood Cell Count 3.66 X10^6/uL (4.5-5.9); Red Cell Distribution Width 15.8 % (11.6-14.8); White Blood Cell Count 4.7 X10^3/uL (4.5-11.0)
[2022-07-18 21:22] LABS: Alanine Aminotransferase 13 IU/L (<50); Albumin 3.8 g/dL (3.5-5.0); Albumin Globulin Ratio 0.7 (1.0-2.8); Alkaline Phosphatase 76 U/L (38-126); Aspartate Aminotransferase 24 IU/L (17-59); BUN Creatinine Ratio 27.7 (6-22); Bilirubin Total 0.4 mg/dL (0.2-1.3); Blood Urea Nitrogen 28 mg/dL (9-20); Calcium 9.1 mg/dL (8.4-10.2); Carbon Dioxide 30 mmol/L (22-32); Chloride 105 mmol/L (98-107); Estimated Glomerular Filt Rate > 60 mL/min (>60); Ethanol (ETOH) < 10 mg/dL; Globulin 5.4 g/dL (1.7-4.1); Glucose 114 mg/dL (80-110); HEMOLYSIS 26 (0-50); Lipase 48 U/L (23-300); Potassium 4.5 mmol/L (3.4-5.1); Sodium 144 mmol/L (137-145); Total Protein 9.2 g/dL (6.3-8.2)
[2022-07-18] MEDS: ACETAMINOPHEN 325 MG TABLET 650 MG PO (21:34)
[2022-07-18] MEDS: IBUPROFEN 400 MG TABLET PO (21:34)
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
[2022-07-18] MEDS: OXYCODONE/APAP 5/325 PREPACK 1 BOTTLE MISC (23:18)
[2022-07-18 23:27] VITALS: BP 136/71; PULSE 76; RESP 19; O2SAT 97
== END 2022-07-18 23:23 | disposition home or self-care (01) ==
PROVIDERS: Emergency Provider Emergency Medicine; PCP Family Medicine
DX: S22.32XA Fracture of one rib, left side, initial encounter for closed fracture (principal); S42.032A Displaced fracture of lateral end of left clavicle, initial encounter for closed fracture; V29.9XXA Motorcycle rider (driver) (passenger) injured in unspecified traffic accident, initial encounter
CPT/HCPCS: 36415; 71101; 73030; 80053; 80320; 83690; 85025; 99284

== ENCOUNTER → 2023-10-22 10:12 | Outpatient (CLI) | payer MEDICARE, SELFPAY ==
[2021-07-26 19:38] VITALS: BMI 27.7
[2023-10-22 11:41] LABS: Cholesterol 192 mg/dL (140-199); HDL Cholesterol 54 mg/dL (40-60); LDL Cholesterol Calculated 102 mg/dL (<100); Triglycerides 180 mg/dL (35-150)
[2023-10-22 11:56] LABS: Free T4, Direct Thyroxine 1.11 ng/dL (0.78-2.19)
[2023-10-22 12:11] LABS: Thyroid Stimulating Hormone 3.79 uIU/mL (0.47-4.68)
== END ==
LOC: LAB 10:13
PROVIDERS: PCP Family Medicine; Referring Provider Internal Medicine Cardiovascular Disease; Visit Provider Internal Medicine Cardiovascular Disease
DX: Z13.1 Encounter for screening for diabetes mellitus (principal); Z13.220 Encounter for screening for lipoid disorders; D64.9 Anemia, unspecified; I42.9 Cardiomyopathy, unspecified
CPT/HCPCS: 36415; 80061; 84439; 84443

== ENCOUNTER 2024-02-26 18:52 | Inpatient (IN) | payer MEDICARE, SELFPAY ==
[2021-07-26 19:38] VITALS: BMI 27.7
[2024-02-26] VITALS (57 sets, daily range): BP systolic 131–163; BP diastolic 63–102; PULSE 63–107; RESP 15–36; TEMP 36.5–38.5; O2SAT 82–99; BMI 29.6; BMI 28.9
--- NOTE | 2024-02-26 19:08 | DI.RAD.S_ITS ---
PROCEDURE: XR CHEST 1V INDICATIONS: suspected sepsis TECHNIQUE: One view of the chest was acquired. COMPARISON: [facility], CR, XR CHEST 1 VIEW, 08/05/2023, 13:14. [facility], CR, XR CHEST 1V, 07/26/2021, 14:50. FINDINGS: Surgical changes and devices: There is a Port-A-Cath on the right with the tip in the area of SVC.. Lungs and pleura: Pulmonary infiltrate in the left hilar area and the left lower lobe. No pleural effusions or pneumothorax. Mediastinum: Mediastinal contours appear normal. Heart size is normal. Bones and chest wall: No suspicious bony lesions. Overlying soft tissues appear unremarkable. IMPRESSION: Left perihilar and lower lobe infiltrate consistent with pneumonia. Dictated by: Lynette Sullivan M.D. on 02/26/2024 at 19:43 Approved by: Lynette Sullivan M.D. on 02/26/2024 at 19:45
--- NOTE | 2024-02-26 19:17 | ED_ITS ---
HPI - General Adult General Chief complaint: Shortness of Breath/Dyspnea Stated complaint: uncontrollable cough Time Seen by Provider: 02/26/24 19:15 Source: patient and family Mode of arrival: Wheelchair History of Present Illness HPI narrative: 73-year-old male. History of multiple myeloma. Is currently undergoing treatment. Does take Levaquin on a daily basis. Is here for evaluation of several days of a cough that has been worsening. No fevers. No underlying lung pathology. No chest pain. No abdominal pain or nausea vomiting. Does have some swelling to his left ankle but he thinks it is from a distant history of an injury. Does not use oxygen at home. He feels like over the past 24 hours his cough has become much worse. Related Data Home Medications Medication Instructions Recorded Confirmed Memory Supplement 2 tab PO DAILY 12/24/20 02/26/24 Biost Supplement 1 tab PO DAILY 04/02/21 02/26/24 benzonatate 100 mg capsule 100 mg PO TID PRN Cough 02/26/24 02/26/24 dexamethasone 4 mg tablet See Rx Instructions .Route .COMPLEX 02/26/24 02/26/24 levofloxacin 500 mg tablet 500 mg PO DAILY 02/26/24 02/26/24 metoprolol succinate 25 mg 25 mg PO ONCE PM 02/26/24 02/26/24 tablet,extended release 24 hr pomalidomide 4 mg capsule See Rx Instructions .Route 02/26/24 02/26/24 (Pomalyst) .COMPLEX cancer sacubitril 24 mg-valsartan 26 mg 0.5 tab PO BID 02/26/24 02/26/24 tablet (Entresto) Previous Rx's Medication Instructions Recorded valacyclovir 500 mg tablet 500 mg PO BID #180 tabs 04/14/23 Allergies Allergy/AdvReac Type Severity Reaction Status Date / Time No Known Drug Allergies Allergy Verified 02/26/24 20:04 Review of Systems Review of Systems ROS Unobtainable: All systems reviewed & are unremarkable except as noted in HPI and below Patient History Medical History Compression fracture Gout Multiple myeloma Hairy cell leukemia Surgical History No significant past surgical history Social History household members: spouse Smoking Status: Never smoker alcohol intake: never Smoking Status: Never smoker Substance Use Type: does not use Exam Initial Vital Signs Initial Vital Signs: Vital Signs Temperature 101.3 F H 02/26/24 19:05 Pulse Rate 107 H 02/26/24 19:05 Respiratory Rate 25 H 02/26/24 19:05 Blood Pressure 148/83 H 02/26/24 19:05 Pulse Oximetry 82 L 02/26/24 19:05 Oxygen Delivery Method Room Air 02/26/24 19:05 Const General: cooperative and ill appearing HENMT Head: normal to inspection and normocephalic Resp Effort & Inspection: cough, labored, respiratory distress and tachypneic Auscultation: rhonchi Cardio Rate: tachycardic Rhythm: regular rhythm GI Inspection: normal to inspection and non-distended Palpation: soft and No tender Skin Other: Cyanosis around the lips, mottled abdomen Neuro General: patient alert, patient awake, patient oriented x3 and moves all extremities Speech: speech normal Extrem General: No edema Course Orders Ordered: ED Orders 02/26/24 19:08 XR chest 1V Stat EKG-12 Lead Stat RT Consult Eval and Treat NOW 02/26/24 19:15 Respiratory Panel (Film Array) Stat 02/26/24 19:22 Complete Blood Count AUTO DIFF Stat Comprehensive Metabolic Panel Stat Lactate (Lactic Acid) Stat Lipase Stat NT-proBNP (BNP-Adult 18+) Stat PTT Partial Thromboplastin Marcin Stat Procalcitonin Stat Prothrombin Time INR Stat cardiac panel [Troponin & CK Cardiac Panel] Stat 02/26/24 19:27 Blood Culture Stat 02/26/24 20:54 Consult to Physician Stat Consult to Physician Stat Acetaminophen (Acetaminophen 325 Mg Tablet) 650 mg PO Q6HR PRN PRN Reason: Fever/Mild Pain (1-3) Sodium Chloride (Normal Saline 0.9%) 1,000 mls @ 150 mls/hr IV CONT SILVINO Last Admin: 02/26/24 21:43 Dose: 150 mls/hr Documented By: BIRDIE Ceftriaxone Sodium 1,000 mg/ (Sodium Chloride) 100 mls @ 200 mls/hr IV NOW ONE Stop: 02/27/24 20:01 Azithromycin 500 mg/ Dextrose 250 mls @ 250 mls/hr IV NOW ONE Stop: 02/27/24 20:58 Ondansetron HCl (Ondansetron 4 Mg/2 Ml Inj) 4 mg IV NOW PRN PRN Reason: Nausea And Vomiting Ondansetron HCl (Ondansetron 4 Mg Odt) 4 mg SL NOW PRN PRN Reason: Nausea And Vomiting Discontinued Medications Sodium Chloride (Normal Saline 0.9%) 1,000 mls @ 1,000 mls/hr IV BOLUS ONE Stop: 02/26/24 20:07 Last Infusion: 02/26/24 21:49 Dose: Infused Documented By: Admin: 02/26/24 20:07 Dose: 1,000 mls/hr Documented By: BIRDIE Ceftriaxone Sodium 1,000 mg/ (Sodium Chloride) 100 mls @ 200 mls/hr IV NOW ONE Stop: 02/26/24 19:18 Last Infusion: 02/26/24 20:46 Dose: Infused Documented By: Admin: 02/26/24 20:06 Dose: 200 mls/hr Documented By: BIRDIE Acetaminophen (Ofirmev) 1,000 mg in 100 mls @ 400 mls/hr IV NOW ONE Stop: 02/26/24 19:32 Last Infusion: 02/26/24 20:46 Dose: Infused Documented By: Admin: 02/26/24 20:13 Dose: 400 mls/hr Documented By: BIRDIE Azithromycin 500 mg/ Dextrose 250 mls @ 250 mls/hr IV NOW ONE Stop: 02/26/24 19:55 Last Infusion: 02/26/24 21:45 Dose: Infused Documented By: Admin: 02/26/24 20:45 Dose: 250 mls/hr Documented By: BIRDIE Vital Signs Vital signs: Vital Signs - 8 hr 02/26/24 19:05 02/26/24 19:09 02/26/24 19:10 Temperature 101.3 F H Pulse Rate 107 H 101 H 101 H Respiratory Rate 25 H 28 H Blood Pressure 148/83 H Pulse Oximetry 82 L 90 L 97 Oxygen Delivery Method Room Air Oxygen Flow Rate 02/26/24 19:11 02/26/24 19:11 02/26/24 19:15 Temperature Pulse Rate 101 H 103 H Respiratory Rate 26 H 33 H Blood Pressure 159/79 H Pulse Oximetry 99 92 Oxygen Delivery Method Non -Rebreather Oxygen Flow Rate 02/26/24 19:20 02/26/24 19:20 02/26/24 19:25 Temperature Pulse Rate 101 H 101 H Respiratory Rate 27 H 36 H Blood Pressure 152/74 H Pulse Oximetry 92 95 Oxygen Delivery Method Nasal Cannula Oximask Oxygen Flow Rate 6 8 02/26/24 19:30 02/26/24 19:30 02/26/24 19:35 Temperature Pulse Rate 101 H 101 H Respiratory Rate 29 H 28 H Blood Pressure 150/77 H Pulse Oximetry 94 95 Oxygen Delivery Method Oximask Oxygen Flow Rate 10 02/26/24 19:40 02/26/24 19:40 02/26/24 19:45 Temperature Pulse Rate 101 H 100 H Respiratory Rate 28 H 23 Blood Pressure 148/80 H Pulse Oximetry 95 94 Oxygen Delivery Method Oxygen Flow Rate 02/26/24 19:50 02/26/24 19:50 02/26/24 19:55 Temperature Pulse Rate 97 H 99 H Respiratory Rate 23 25 H Blood Pressure 154/80 H Pulse Oximetry 94 94 Oxygen Delivery Method Oxygen Flow Rate 02/26/24 20:00 02/26/24 20:00 02/26/24 20:05 Temperature Pulse Rate 98 H 98 H Respiratory Rate 23 24 Blood Pressure 151/77 H Pulse Oximetry 95 95 Oxygen Delivery Method Oxygen Flow Rate 02/26/24 20:10 02/26/24 20:10 02/26/24 20:15 Temperature Pulse Rate 95 H 96 H Respiratory Rate 23 23 Blood Pressure 155/80 H Pulse Oximetry 94 95 Oxygen Delivery Method Oxygen Flow Rate 02/26/24 20:20 02/26/24 20:20 02/26/24 20:25 Temperature Pulse Rate 93 H 93 H Respiratory Rate 22 22 Blood Pressure 150/80 H Pulse Oximetry 94 94 Oxygen Delivery Method Oxygen Flow Rate 02/26/24 20:30 02/26/24 20:30 02/26/24 20:35 Temperature Pulse Rate 92 H 91 H Respiratory Rate 23 23 Blood Pressure 158/77 H Pulse Oximetry 95 95 Oxygen Delivery Method Oxygen Flow Rate 02/26/24 20:40 02/26/24 20:40 02/26/24 20:45 Temperature Pulse Rate 90 90 Respiratory Rate 18 21 Blood Pressure 159/76 H Pulse Oximetry 94 94 Oxygen Delivery Method Oxygen Flow Rate 02/26/24 20:50 02/26/24 20:50 Temperature Pulse Rate 94 H Respiratory Rate 23 Blood Pressure 153/76 H Pulse Oximetry 94 Oxygen Delivery Method Oxygen Flow Rate Medical Decision Making Lab Data Lab results reviewed: Yes I reviewed the patient's lab results. 02/26/24 19:22 02/26/24 19:22 Labs: Lab Results 02/26/24 02/26/24 Range/Units 19:15 19:22 WBC 2.1 L (4.5-11.0) X10^3/uL RBC 3.44 L (4.5-5.9) X10^6/uL Hgb 11.1 L (13.5-17.5) g/dL Hct 33.2 L (41-53) % MCV 96.5 (80-100) fL MCH 32.2 (26-34) PG MCHC 33.3 (30-36) % RDW 18.1 H (11.6-14.8) % Plt Count 127 L (150-400) X10^3/uL Neut % (Auto) 72.2 (50-75) % Lymph % (Auto) 11.5 L (25-40) % [place] % (Auto) 12.7 (3-14) % Eos % (Auto) 2.3 (2-4) % Baso % (Auto) 1.3 (0-2) % Neut # (Auto) 1500 (1756-4031) /uL Lymph # (Auto) 200 L (0362-7366) /uL [place] # (Auto) 300 (0-900) /uL Eos # (Auto) 0 (0-450) /uL Baso # (Auto) 0 (0-100) /uL PT 13.3 H (9.4-12.5) SECONDS INR 1.2 (0.9-1.3) APTT 35 (25.1-36.5) SECONDS Sodium 136 L (137-145) mmol/L Potassium 4.3 (3.4-5.1) mmol/L Chloride 107 (98-107) mmol/L Carbon Dioxide 25 (22-32) mmol/L BUN 24 H (9-20) mg/dL Creatinine 0.88 (0.66-1.25) mg/dL Estimated GFR > 60 (>60) mL/min BUN/Creatinine Ratio 27.3 H (6-22) Glucose 113 H (80-110) mg/dL Lactate 1.1 (0.7-2.1) mmol/L Calcium 8.2 L (8.4-10.2) mg/dL Total Bilirubin 0.9 (0.2-1.3) mg/dL AST 18 (17-59) IU/L ALT 14 (<50) IU/L Alkaline Phosphatase 102 (38-126) U/L Total Creatine Kinase 36 L (55-170) U/L Troponin I 0.013 (0.01-0.034) ng/mL NT-Pro-B Natriuret Pep 1880 H (<125) pg/mL Total Protein 5.9 L (6.3-8.2) g/dL Albumin 3.8 (3.5-5.0) g/dL Globulin 2.1 (1.7-4.1) g/dL Albumin/Globulin Ratio 1.8 (1.0-2.8) Lipase 14 L (23-300) U/L Procalcitonin 0.11 (<0.5) ng/mL Chlamy pneumoniae PCR Not detected (Not Detect) Adenovirus (PCR) Not detected (Not Detect) B.parapertussis DNA PCR Not detected (Not Detecte) Coronavirus OC43 (PCR) Not detected (Not Detect) Coronavirus HKU1 (PCR) Detected H (Not Detect) Coronavirus 229E (PCR) Not detected (Not Detect) SARS-CoV-2 (PCR) Not detected (Not Detecte) Coronavirus NL63 (PCR) Not detected (Not Detect) Human Metapneumovir PCR Not detected (Not Detect) Influenza Type A (PCR) Not detected (Not Detect) Influenza Type B (PCR) Not detected (Not Detect) M. pneumoniae (PCR) Not detected (Not Detect) Parainfluenza 1 (PCR) Not detected (Not Detect) Parainfluenza 2 (PCR) Not detected (Not Detect) Parainfluenza 3 (PCR) Detected H (Not Detect) Parainfluenza 4 (PCR) Not detected (Not Detect) RSV (PCR) Not detected (Not Detect) Entero/Rhino (PCR) Not detected (Not Detect) Imaging Data Chest x-ray: Radiologist's Impression: PROCEDURE: XR CHEST 1V INDICATIONS: suspected sepsis TECHNIQUE: One view of the chest was acquired. COMPARISON: [facility], CR, XR CHEST 1 VIEW, 08/05/2023, 13:14. [facility], CR, XR CHEST 1V, 07/26/2021, 14:50. FINDINGS: Surgical changes and devices: There is a Port-A-Cath on the right with the tip in the area of SVC.. Lungs and pleura: Pulmonary infiltrate in the left hilar area and the left lower lobe. No pleural effusions or pneumothorax. Mediastinum: Mediastinal contours appear normal. Heart size is normal. Bones and chest wall: No suspicious bony lesions. Overlying soft tissues appear unremarkable. IMPRESSION: Left perihilar and lower lobe infiltrate consistent with pneumonia. ECG Data Attestation: I personally reviewed and interpreted this ECG as follows: Interpretation: Sinus tachycardia Ventricular rate 101 Normal axis Normal QRS Normal QTC No ST T wave changes MDM Narrative Medical decision making narrative: Patient was very ill-appearing upon arrival with cyanosis around his lips and upper chest. Oxygen saturations in the low 80s. He was initially placed on a non-rebreather which improved his saturations. His color improved. Patient was tachycardic upon arrival. Was a sinus tachycardia this improved with fluids and antibiotics and oxygen. Chest x-ray is concerning for left lower lobe pneumonia. He was positive for to respiratory viruses which very well could be the cause of his symptoms as well however given his history of multiple myeloma in the fact that he has been on Levaquin he was given IV antibiotics. Blood cultures were obtained. Patient does require admission to the hospital because of his need for oxygen. Discussed the case with Dr. Parry he was on- call for the patient's primary doctor who will admit. Discussed the need for admission with the patient who expressed understanding and agreement as well. It does report a vast improvement of his symptoms and clinically appears improvement with oxygen. Discharge Plan Departure Patient Disposition: Admitted As Inpatient Clinical Impression: Pneumonia, Hypoxia Admit Date/Time: 02/26/24 20:54 Admit Provider: Marie Parry
[2024-02-26 19:35] LABS: Add Manual Diff / Slide Review NO; Basophils Absolute Auto 0 /uL (0-100); Basophils Percent Auto 1.3 % (0-2); Eosinophils Absolute Auto 0 /uL (0-450); Eosinophils Percent Auto 2.3 % (2-4); Hematocrit 33.2 % (41-53); Hemoglobin 11.1 g/dL (13.5-17.5); Lymphocytes Absolute Auto 200 /uL (1100-4500); Lymphocytes Percent Auto 11.5 % (25-40); Mean Corpuscular HGB Conc 33.3 % (30-36); Mean Corpuscular Hemoglobin 32.2 PG (26-34); Mean Corpuscular Volume 96.5 fL (80-100); Monocytes Absolute Auto 300 /uL (0-900); Monocytes Percent Auto 12.7 % (3-14); Neutrophils Absolute Auto 1500 /uL (1500-7000); Neutrophils Percent Auto 72.2 % (50-75); Platelet Count 127 X10^3/uL (150-400); Red Blood Cell Count 3.44 X10^6/uL (4.5-5.9); Red Cell Distribution Width 18.1 % (11.6-14.8); White Blood Cell Count 2.1 X10^3/uL (4.5-11.0)
[2024-02-26 19:44] LABS: INR 1.2 (0.9-1.3); Prothrombin Time 13.3 SECONDS (9.4-12.5)
[2024-02-26 19:47] LABS: PTT Partial Thromboplastin Tim 35 SECONDS (25.1-36.5)
[2024-02-26 19:48] LABS: Lactate (Lactic Acid) 1.1 mmol/L (0.7-2.1)
[2024-02-26 19:49] LABS: Alanine Aminotransferase 14 IU/L (<50); Albumin 3.8 g/dL (3.5-5.0); Albumin Globulin Ratio 1.8 (1.0-2.8); Alkaline Phosphatase 102 U/L (38-126); Aspartate Aminotransferase 18 IU/L (17-59); BUN Creatinine Ratio 27.3 (6-22); Bilirubin Total 0.9 mg/dL (0.2-1.3); Blood Urea Nitrogen 24 mg/dL (9-20); Calcium 8.2 mg/dL (8.4-10.2); Carbon Dioxide 25 mmol/L (22-32); Chloride 107 mmol/L (98-107); Creatine Kinase 36 U/L (55-170); Estimated Glomerular Filt Rate > 60 mL/min (>60); Globulin 2.1 g/dL (1.7-4.1); Glucose 113 mg/dL (80-110); HEMOLYSIS < 15 (0-50); Lipase 14 U/L (23-300); Potassium 4.3 mmol/L (3.4-5.1); Sodium 136 mmol/L (137-145); Total Protein 5.9 g/dL (6.3-8.2)
[2024-02-26 20:01] LABS: NT-proBNP (BNP-Adult 18+) 1880 pg/mL (<125); Troponin I 0.013 ng/mL (0.01-0.034)
[2024-02-26 20:05] LABS: Procalcitonin 0.11 ng/mL (<0.5)
[2024-02-26] MEDS: cefTRIAXone 1,000 MG in SODIUM CHLORIDE 0.9% 100 ML 200 MG IV (20:06)
[2024-02-26] MEDS: SODIUM CHLORIDE 0.9% 1,000 ML 1000 ML IV (20:07)
[2024-02-26] MEDS: ACETAMINOPHEN IV 1,000 MG/100 ML VIAL 400 MG IV (20:13)
[2024-02-26 20:33] LABS: Adenovirus Not Detected (Not Detect); B. parapertussis Not Detected (Not Detecte); Bordetella pertussis Not Detected (Not Detect); Chlamydophila pneumoniae Not Detected (Not Detect); Coronavirus 229E Not Detected (Not Detect); Coronavirus HKU1 Detected (Not Detect); Coronavirus NL 63 Not Detected (Not Detect); Coronavirus OC43 Not Detected (Not Detect); Human Metapneumovirus Not Detected (Not Detect); Human Rhinovirus/Enterovirus Not Detected (Not Detect); Influenza A Not Detected (Not Detect); Influenza B Not Detected (Not Detect); Mycoplasma pneumoniae Not Detected (Not Detect); Parainfluenza Virus 1 Not Detected (Not Detect); Parainfluenza Virus 2 Not Detected (Not Detect); Parainfluenza Virus 3 Detected (Not Detect); Parainfluenza Virus 4 Not Detected (Not Detect); Respiratory Syncytial Virus Not Detected (Not Detect); SARS- CoV-2 Not Detected (Not Detecte)
[2024-02-26] MEDS: AZITHROMYCIN 500 MG in DEXTROSE 5% IN WATER 250 ML 250 MG IV (20:45)
[2024-02-26] MEDS: SODIUM CHLORIDE 0.9% 1,000 ML 150 ML IV (21:43)
--- NOTE | 2024-02-26 22:26 | PC.NURSE ---
Report given to Olivia OLEA
[2024-02-27] VITALS (196 sets, daily range): BP systolic 112–157; BP diastolic 58–77; PULSE 66–122; RESP 15–45; TEMP 36.2–37.9; O2SAT 84–100
[2024-02-27 00:27] LABS: MRSA (Nasal) PCR NOT DETECTED (Not Detect)
[2024-02-27] MEDS: BENZONATATE 100 MG CAPSULE PO ×2 (02:40→08:09)
[2024-02-27] MEDS: guaiFENesin ER 600 MG TAB PO ×2 (02:40→08:08)
--- NOTE | 2024-02-27 06:48 | PC.NURSE ---
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 A/Ox3, bit forgetful an fatigued, says I don't know to most questions, denies pain. at bedside answering some questions. Initially on Oximask 10L, RT changed to HFNC 10L for few hours, but placed back on mask, SpO2 mostly >92%, does have apnea, desats down to 85% while coughing and on RA, LS coarse throughout. Admitting Dr. Parry paged at 0220, patient woke with persistent cough and requesting medication for it. Order obtained for Tessalon Perles and guaifenesin-effective.
[2024-02-27] MEDS: ACETAMINOPHEN 325 MG TABLET 650 MG PO (08:09)
--- NOTE | 2024-02-27 09:35 | PM.HP.1 ---
History of Present Illness History of Present Illness Date Patient Seen: 02/27/24 Time Patient Seen: 09:05 Date of Onset of Symptoms: 02/21/24 Chief complaint: uncontrollable cough Narrative: 73-year-old male with history of HFrEF and multiple myeloma currently undergoing chemotherapy treatment who presented to the ER for about 1 week of worsening cough and recent development of fevers. Highest fever at home was 100.8 measured orally yesterday. Cough is productive of sputum and started approximately 3 days ago. On arrival to the ER he was found to be hypoxic into the 80s. At baseline he does not have an oxygen requirement. This improved when he was placed on supplemental oxygen of up to 15 L but then decreased down to 8-10 L. He has no tobacco use history. On arrival he was also found to be tachycardic and febrile to 101.3. Labs were noteworthy for WBC count of 2.1, platelets of 127. No neutropenia, % neutrophils of 72.2. No clinically relevant electrolyte derangements noted on CMP, normal creatinine and GFR, normal LFTs, negative troponin, normal lactate, normal procalcitonin. Respiratory pathogen panel positive for coronavirus HKU1 and parainfluenza virus 3. Chest x-ray showed left perihilar and lower lobe infiltrates consistent with pneumonia. EKG showed sinus tachycardia and was otherwise normal. Blood cultures were obtained and are pending. In the ER he was given ceftriaxone and azithromycin at approximately 8:40 in the evening. This morning, his notes that he has been feeling slightly better. She comments that yesterday he did not seem like himself and this morning he is closer to his normal self although still very tired. He has been frequently very tired since the diagnosis of multiple myeloma. For management he is undergoing once weekly chemotherapy on Wednesdays and 1 dose of dexamethasone on Sundays. His primary oncologist is Dr. Willett at [facility]. He is currently on prophylactic dose of levofloxacin once daily and valacyclovir 500 mg twice daily. FORMERLY [facility], 1928–1983 Medical History (Updated 02/27/24 @ 11:35 by Marie Parry MD) HFrEF (heart failure with reduced ejection fraction) Compression fracture Gout Multiple myeloma Hairy cell leukemia Surgical History No significant past surgical history Social History household members: spouse Smoking Status: Never smoker alcohol intake: never Meds Home Medications and Allergies Home Medications Medication Instructions Recorded Confirmed Type Memory Supplement 2 tab PO DAILY 12/24/20 02/26/24 History Biost Supplement 1 tab PO DAILY 04/02/21 02/26/24 History valacyclovir 500 mg tablet 500 mg PO BID #180 tabs 04/14/23 02/26/24 Rx benzonatate 100 mg capsule 100 mg PO TID PRN Cough 02/26/24 02/26/24 History dexamethasone 4 mg tablet See Rx Instructions .Route .COMPLEX 02/26/24 02/26/24 History levofloxacin 500 mg tablet 500 mg PO DAILY 02/26/24 02/26/24 History metoprolol succinate 25 mg 25 mg PO ONCE PM 02/26/24 02/26/24 History tablet,extended release 24 hr pomalidomide 4 mg capsule See Rx Instructions .Route 02/26/24 02/26/24 History (Pomalyst) .COMPLEX cancer sacubitril 24 mg-valsartan 26 mg 0.5 tab PO BID 02/26/24 02/26/24 History tablet (Entresto) Allergies Allergy/AdvReac Type Severity Reaction Status Date / Time No Known Drug Allergies Allergy Verified 02/26/24 20:04 Review of Systems Review of Systems Narrative: + fevers + changes in mentation + shortness of breaths + cough + congestion + weakness -chest pain Exam Vital Signs (past 8 hours): - 02/27/24 01:40 02/27/24 01:45 02/27/24 01:50 Temperature Pulse Rate 76 75 78 Respiratory Rate 23 23 31 H Blood Pressure Pulse Oximetry 96 96 96 Oxygen Delivery Method Oxygen Flow Rate 02/27/24 01:55 02/27/24 02:00 02/27/24 02:00 Temperature Pulse Rate 79 96 H Respiratory Rate 32 H 28 H Blood Pressure 150/77 H Pulse Oximetry 97 91 Oxygen Delivery Method Oxygen Flow Rate 02/27/24 02:05 02/27/24 02:10 02/27/24 02:15 Temperature Pulse Rate 96 H 95 H 100 H Respiratory Rate 33 H 29 H 41 H Blood Pressure Pulse Oximetry 84 L 90 L 87 L Oxygen Delivery Method Oxygen Flow Rate 02/27/24 02:20 02/27/24 02:23 02/27/24 02:25 Temperature Pulse Rate 95 H 90 92 H Respiratory Rate 33 H 24 29 H Blood Pressure Pulse Oximetry 86 L 93 95 Oxygen Delivery Method Oximask Oxygen Flow Rate 02/27/24 02:30 02/27/24 02:35 02/27/24 02:40 Temperature Pulse Rate 91 H 89 85 Respiratory Rate 27 H 23 22 Blood Pressure Pulse Oximetry 96 93 91 Oxygen Delivery Method Oxygen Flow Rate 02/27/24 02:45 02/27/24 02:50 02/27/24 02:55 Temperature Pulse Rate 96 H 90 87 Respiratory Rate 31 H 24 24 Blood Pressure Pulse Oximetry 93 97 96 Oxygen Delivery Method Oxygen Flow Rate 02/27/24 03:00 02/27/24 03:05 02/27/24 03:10 Temperature Pulse Rate 86 84 85 Respiratory Rate 24 22 23 Blood Pressure Pulse Oximetry 96 97 97 Oxygen Delivery Method Oxygen Flow Rate 02/27/24 03:15 02/27/24 03:20 02/27/24 03:25 Temperature Pulse Rate 90 90 90 Respiratory Rate 24 25 H 25 H Blood Pressure Pulse Oximetry 97 95 95 Oxygen Delivery Method Oxygen Flow Rate 02/27/24 03:30 02/27/24 03:35 02/27/24 03:40 Temperature Pulse Rate 87 111 H 92 H Respiratory Rate 23 35 H 23 Blood Pressure Pulse Oximetry 96 92 97 Oxygen Delivery Method Oxygen Flow Rate 02/27/24 03:45 02/27/24 03:50 02/27/24 03:55 Temperature Pulse Rate 91 H 89 89 Respiratory Rate 24 23 25 H Blood Pressure Pulse Oximetry 97 98 98 Oxygen Delivery Method Oxygen Flow Rate 02/27/24 04:00 02/27/24 04:05 02/27/24 04:10 Temperature Pulse Rate 90 91 H 93 H Respiratory Rate 24 24 25 H Blood Pressure Pulse Oximetry 98 98 98 Oxygen Delivery Method Oxygen Flow Rate 02/27/24 04:15 02/27/24 04:20 02/27/24 04:25 Temperature Pulse Rate 94 H 95 H 93 H Respiratory Rate 25 H 25 H 25 H Blood Pressure Pulse Oximetry 96 95 96 Oxygen Delivery Method Oxygen Flow Rate 02/27/24 04:30 02/27/24 04:35 02/27/24 04:40 Temperature Pulse Rate 93 H 95 H 94 H Respiratory Rate 25 H 25 H 24 Blood Pressure Pulse Oximetry 95 94 94 Oxygen Delivery Method Oxygen Flow Rate 02/27/24 04:45 02/27/24 04:50 02/27/24 04:55 Temperature Pulse Rate 103 H 97 H 93 H Respiratory Rate 25 H 22 24 Blood Pressure Pulse Oximetry 94 97 97 Oxygen Delivery Method Oxygen Flow Rate 02/27/24 05:00 02/27/24 05:05 02/27/24 05:10 Temperature Pulse Rate 95 H 97 H 95 H Respiratory Rate 25 H 24 24 Blood Pressure Pulse Oximetry 98 97 97 Oxygen Delivery Method Oxygen Flow Rate 02/27/24 05:15 02/27/24 05:20 02/27/24 05:25 Temperature Pulse Rate 94 H 97 H 93 H Respiratory Rate 24 24 24 Blood Pressure Pulse Oximetry 97 96 96 Oxygen Delivery Method Oxygen Flow Rate 02/27/24 05:30 02/27/24 05:35 02/27/24 05:40 Temperature Pulse Rate 103 H 96 H 97 H Respiratory Rate 25 H 30 H 26 H Blood Pressure Pulse Oximetry 96 96 94 Oxygen Delivery Method Oxygen Flow Rate 02/27/24 05:45 02/27/24 05:50 02/27/24 05:55 Temperature Pulse Rate 99 H 93 H 94 H Respiratory Rate 27 H 24 24 Blood Pressure Pulse Oximetry 93 96 94 Oxygen Delivery Method Oxygen Flow Rate 02/27/24 06:00 02/27/24 06:05 02/27/24 06:10 Temperature Pulse Rate 93 H 91 H 92 H Respiratory Rate 24 22 23 Blood Pressure Pulse Oximetry 96 96 95 Oxygen Delivery Method Oxygen Flow Rate 02/27/24 06:11 02/27/24 06:15 02/27/24 06:20 Temperature 100.2 F H Pulse Rate 92 H 99 H Respiratory Rate 25 H 23 Blood Pressure Pulse Oximetry 91 95 Oxygen Delivery Method Oxygen Flow Rate 02/27/24 06:20 02/27/24 06:25 02/27/24 06:30 Temperature Pulse Rate 93 H 92 H Respiratory Rate 23 22 Blood Pressure 157/72 H Pulse Oximetry 93 95 Oxygen Delivery Method Oxygen Flow Rate 02/27/24 06:35 02/27/24 06:40 02/27/24 06:45 Temperature Pulse Rate 88 89 88 Respiratory Rate 23 24 22 Blood Pressure Pulse Oximetry 94 94 95 Oxygen Delivery Method Oxygen Flow Rate 02/27/24 06:50 02/27/24 06:55 02/27/24 07:00 Temperature Pulse Rate 85 98 H 89 Respiratory Rate 23 24 23 Blood Pressure Pulse Oximetry 96 95 94 Oxygen Delivery Method Oxygen Flow Rate 02/27/24 07:00 02/27/24 07:05 02/27/24 07:10 Temperature Pulse Rate 89 87 Respiratory Rate 22 24 Blood Pressure Pulse Oximetry 96 97 Oxygen Delivery Method Oximask Oxygen Flow Rate 02/27/24 07:15 02/27/24 07:20 02/27/24 07:25 Temperature Pulse Rate 87 122 H 85 Respiratory Rate 22 45 H 22 Blood Pressure Pulse Oximetry 95 96 95 Oxygen Delivery Method Oxygen Flow Rate 02/27/24 07:30 02/27/24 07:35 02/27/24 07:40 Temperature Pulse Rate 86 86 80 Respiratory Rate 21 24 22 Blood Pressure Pulse Oximetry 95 95 96 Oxygen Delivery Method Oxygen Flow Rate 02/27/24 07:45 02/27/24 07:50 02/27/24 07:55 Temperature Pulse Rate 78 81 92 H Respiratory Rate 22 22 25 H Blood Pressure Pulse Oximetry 96 96 94 Oxygen Delivery Method Oxygen Flow Rate 02/27/24 08:00 02/27/24 08:05 02/27/24 08:09 Temperature 99.7 F H Pulse Rate 98 H 86 Respiratory Rate 30 H 23 Blood Pressure Pulse Oximetry 92 93 Oxygen Delivery Method Oxygen Flow Rate 02/27/24 08:10 02/27/24 08:15 02/27/24 08:20 Temperature Pulse Rate 81 96 H 79 Respiratory Rate 20 38 H 20 Blood Pressure Pulse Oximetry 93 93 91 Oxygen Delivery Method Oxygen Flow Rate 02/27/24 08:25 02/27/24 08:30 02/27/24 08:35 Temperature Pulse Rate 78 79 78 Respiratory Rate 21 19 21 Blood Pressure Pulse Oximetry 90 L 92 94 Oxygen Delivery Method Oxygen Flow Rate 02/27/24 08:40 02/27/24 08:45 02/27/24 08:50 Temperature 99.7 F H Pulse Rate 78 80 77 Respiratory Rate 22 20 20 Blood Pressure 157/72 H Pulse Oximetry 94 93 94 Oxygen Delivery Method Oxygen Flow Rate 02/27/24 08:50 Temperature 97.1 F L Pulse Rate Respiratory Rate Blood Pressure Pulse Oximetry Oxygen Delivery Method Oxygen Flow Rate Oxygen Delivery Method Oximask Oxygen Flow Rate 12 Narrative Exam Narrative: GEN: Patient in bed sleeping, per he just fell asleep so did not awakened for full exam at this time HEENT: -Head: NC/AT -Eyes: No discharge or redness -Ears: External ears are normal. -Mouth and throat: Non-rebreather mask in place, supplemental oxygen at 12 L currently CV: warm and well perfused, RRR, no murmurs LUNGS: Diffuse rhonchi heard throughout all lobes on anterior auscultation, O2 saturations in the 93-94% range on 12 L, intermittent wet sounding cough ABD: Soft, NT/ND, NBS, no masses or organomegaly. SKIN: Warm, well perfused. No skin rashes or abnormal lesions NEURO: Sleeping comfortably, will return later to awaken pt and assess after he has gotten some sleep Objective Labs 02/26/24 19:22 02/26/24 19:22 Labs: Laboratory Results - last 24 hr 02/26/24 02/26/24 02/26/24 19:15 19:22 22:45 WBC 2.1 L RBC 3.44 L Hgb 11.1 L Hct 33.2 L MCV 96.5 MCH 32.2 MCHC 33.3 RDW 18.1 H Plt Count 127 L Neut % (Auto) 72.2 Lymph % (Auto) 11.5 L Stark % (Auto) 12.7 Eos % (Auto) 2.3 Baso % (Auto) 1.3 Neut # (Auto) 1500 Lymph # (Auto) 200 L Stark # (Auto) 300 Eos # (Auto) 0 Baso # (Auto) 0 PT 13.3 H INR 1.2 APTT 35 Sodium 136 L Potassium 4.3 Chloride 107 Carbon Dioxide 25 BUN 24 H Creatinine 0.88 Estimated GFR > 60 BUN/Creatinine Ratio 27.3 H Glucose 113 H Lactate 1.1 Calcium 8.2 L Total Bilirubin 0.9 AST 18 ALT 14 Alkaline Phosphatase 102 Total Creatine Kinase 36 L Troponin I 0.013 NT-Pro-B Natriuret Pep 1880 H Total Protein 5.9 L Albumin 3.8 Globulin 2.1 Albumin/Globulin Ratio 1.8 Lipase 14 L Procalcitonin 0.11 Nasal Screen MRSA (PCR) Not detected Chlamy pneumoniae PCR Not detected Adenovirus (PCR) Not detected B.parapertussis DNA PCR Not detected Coronavirus OC43 (PCR) Not detected Coronavirus HKU1 (PCR) Detected H Coronavirus 229E (PCR) Not detected SARS-CoV-2 (PCR) Not detected Coronavirus NL63 (PCR) Not detected Human Metapneumovir PCR Not detected Influenza Type A (PCR) Not detected Influenza Type B (PCR) Not detected M. pneumoniae (PCR) Not detected Parainfluenza 1 (PCR) Not detected Parainfluenza 2 (PCR) Not detected Parainfluenza 3 (PCR) Detected H Parainfluenza 4 (PCR) Not detected RSV (PCR) Not detected Entero/Rhino (PCR) Not detected Assessment & Plan Assessment and plan (1) Hypoxia: Status: Acute (2) Pneumonia: Qualifiers: Pneumonia type: due to unspecified organism Laterality: left Lung location: lower lobe of lung Qualified Code(s): J18.9 - Pneumonia, unspecified organism Status: Acute (3) Multiple myeloma: Qualifiers: Multiple myeloma remission status: not in remission Qualified Code(s): C90.00 - Multiple myeloma not having achieved remission Status: Chronic (4) HFrEF (heart failure with reduced ejection fraction): Status: Acute Plan 73 yo M with hx of HFrEF and multiple myeloma currently undergoing chemotherapy treatment presenting with sx and work up consistent with pneumonia. Care discussed with oncologist environmental construction engineer for [facility]. Dr. Cadet environmental construction engineer and recommending skipping dexamethasone for now, will plan to skip Chemo treatment this week as well while he is healing. he aggrees with pseudomonas coverage for this pt due to active neoplasm as well. Recommendation for swabbing for MRSA as well and if positive, add MRSA covereage with Vanco but for now ok to hold off on MRSA coverage. ## Community Acquired Pneumonia ## Coronavirus (non-COVID variant) + Parainfluenza Virus PNA ## Acute hypoxic respiratory failure: - s/p 1 dose ceftriaxone coverage at 20:00 on 02/26, increasing coverage to Cefepime for pseudomonal coverage now so will give dose this AM (day 2, pending course) - s/p Azithromycin 500mg at 20:00 on 02/26, now 250mg x4 days ( today day 25) - No neutropenia so no emperic MRSA covereage, will MRSA swab and if positive will add Vancomycin - no indication for aneorobe coverage at this time, but will consider addition if pt fails to improve - Supplemental O2 with goal O2 >92%, wean as able. Currently on 12L -anticipate continued oxygen needs, case management we will work on starting the process of obtaining home oxygen so that patient can go home once stabilized if still needing supplemental O2 ## Multiple myeloma: After discussion with covering oncologist, we will hold dexamethasone for now and to skip chemotherapy this week -hold home Levofloxacin, pseudomonal coverage with cefepime. At discharge we will restart -hold home dexamethasone which should be due today at recommendation of oncology -patient's primary oncologist will be notified tomorrow of this patient's admission - Continue Valacyclovir ppx ## HFrEF: No recent echo available in [facility], per patient's HF managed by his yolk spray drier. No acute need for repeat ECHO, will plan to assess outside records when clinics open tomorrow. no sign of acute fluid overload today. BNP elevated but no baseline for comparison. For now continue current treatment. Plan to watch for signs of fluid overload. - Continue Entresto 12.5mg BID + Metoprolol 25mg daily - judicious IVF use - Watch for signs of fluid overload DVT ppx: Mayra of 9, pharmacologic ppx indicated, Lovenox SQ injections Diet: General Code status: Full code Quality VTE Deep Vein Thrombosis/Pulmonary Embolism Present on Admission: No
[2024-02-27] MEDS: ENTRESTO 12.5 EACH PO ×2 (10:03→20:11)
[2024-02-27] MEDS: valACYclovir 500 MG TABLET PO ×2 (10:03→20:12)
[2024-02-27] MEDS: BENZONATATE 100 MG CAPSULE 200 MG PO ×2 (10:40→20:12)
[2024-02-27] MEDS: ENOXAPARIN 40 MG/0.4 ML SYRINGE SUBCUT (10:41)
[2024-02-27] MEDS: CEFEPIME 2 GM in SODIUM CHLORIDE 0.9% 100 ML IV ×2 (10:42→18:16)
--- NOTE | 2024-02-27 11:13 | PT-IP ANOTE ---
Pt discussed in rounds and order for PT put in. Per provider, initiate PT efforts next date.
--- NOTE | 2024-02-27 11:28 | CM.DANOTE ---
DCP: Case received, EMR reviewed, met with patient and spouse, Yuly. Introduced self and role. Was able to obtain information from spouse regarding patient's baseline activity level at home prior to admission. DCP assessment completed with information currently available. Patient is a 73 year old male who admitted yesterday evening to the care of the hospitalist team.. PCP: Dr. Nance. Payer: confirmed: Medicare Patient came to the hospital via private vehicle secondary to having a cough that has been worsening. Patient has history of multiple myeloma, is currently undergoing treatment at [facility] oncology. Patient does not use oxygen at his baseline. Notes indicate that upon arrival, patient had noted some cyanosis, around his lips and upper chest. His oxygen sats had been in the low 80s. He was then placed on a non-rebreather, that improved his saturations. Notes also indicate that patient had a temp of 100 yesterday. Patient was diagnosed with pneumonia, coronovirus (non-COVID variance), parainfluenza virus. Patient is currently on 12 liters of oxygen. Met briefly with patient, and spouse. Patient has been sleeping, on oxygen. Confirmed with spouse, Yuly, that they both reside on [place]. He is going to [facility] for his treatments. He is independent. Spoke to Dr. Parry. Is ok placing P.T, and O.T orders, most likely once he is more medically stable. Did place both orders. Did call John at [facility], confirmed that they do not services [place], no other agencies as well. P: DCP to continue to follow closely. He will get P.T. and O.T. once more stable, and 'would be hopeful that he can have a home plan, since he is actively being treated with oncology, care home may not be feasible. Denise De La Garza RN/Milk Drying Machine Operator Discharge Planning/Care Management CM Discharge Assessment Start: 02/27/24 11:23 Freq: Status: Active Protocol: Document 02/27/24 11:24 (Rec: 02/27/24 11:28 [id number]) Discharge Planning Assessment Assigned Automobile Body Repair Supervisor Denise De La Garza RN/Milk Drying Machine Operator Advance Directives? No History Provided By Patient,Significant Other, Medical Record Prior Living Arrangements House Household Members spouse Type of transporation used prior to Drives own vehicle admit Independent with ADL's Yes Is patient alert and oriented? Yes Caregiver for Another No Comment Lives on [place], would not be eligable for home health services. Barriers to Discharge No Comment Will have to see how he does medically, and will then work with P.T. Discharge Plan Home Transportation Arrangement Spouse Referrals Initiated Other Additional Comment Patient is not yet medically stable, is on 12 liters of oxygen, will work with P.T, once more medically stable. If patient plan is home with home health No: There are no home health : Has signed face to face form been services on [place] completed? Whiteboard Updated in Patient Room with No name and ext. # of Automobile Body Repair Supervisor Comment Patient on isolation, did not go far into patient's room. Review Status In Process Next Review Type Continued Stay Review
[2024-02-27] MEDS: ACETAMINOPHEN 325 MG TABLET 975 MG PO (20:11)
[2024-02-27] MEDS: METOPROLOL ER 25 MG TABLET PO (20:12)
[2024-02-27] MEDS: AZITHROMYCIN 500 MG in DEXTROSE 5% IN WATER 250 ML 250 MG IV (20:14)
[2024-02-28] VITALS (9 sets, daily range): BP systolic 114–150; BP diastolic 54–75; PULSE 74–88; RESP 19–25; TEMP 36.3–36.7; O2SAT 95–97
[2024-02-28] MEDS: guaiFENesin ER 600 MG TAB PO (00:14)
[2024-02-28] MEDS: CEFEPIME 2 GM in SODIUM CHLORIDE 0.9% 100 ML IV ×3 (02:49→18:19)
[2024-02-28] MEDS: BENZONATATE 100 MG CAPSULE 200 MG PO ×2 (04:45→18:23)
[2024-02-28 05:48] LABS: Hematocrit 28.6 % (41-53); Hemoglobin 9.7 g/dL (13.5-17.5); Mean Corpuscular Hemoglobin 32.9 PG (26-34); Mean Corpuscular Volume 96.8 fL (80-100); Platelet Count 118 X10^3/uL (150-400); Red Blood Cell Count 2.95 X10^6/uL (4.5-5.9); Red Cell Distribution Width 17.9 % (11.6-14.8)
[2024-02-28 05:50] LABS: Add Manual Diff / Slide Review YES; White Blood Cell Count 1.5 X10^3/uL (4.5-11.0)
[2024-02-28 06:12] LABS: Anisocytosis 1+; Burr Cells 1+; Microcytosis 1+; Neutrophils Absolute Manual 1155 /uL (3000-5900); Platelet Estimate Decreased on smear; Total Cells Counted 100
--- NOTE | 2024-02-28 07:00 | PC.NURSE ---
manufacturing shift supervisor: Patient is AxOx4, VSS, O2 saturation sits between 96-98% on 10L oximask overnight. Titrated O2 down to 6L oximask, O2 saturation currently 96%. Patient has moist cough, tessalon perles & mucinex given as ordered. Patient appears SOB on exertion; denies chest pain, difficulty breathing, dizziness, or pain. Tylenol given for temp of 99.9, down to 98.0. IV abx infused, IV running TKO as ordered. Using urinal independently. Uses call-light appropriately. Family at bedside. Plan of care ongoing. Notified MD Parry of critical lab value of WBC: 1.5. No new orders at this time.
--- NOTE | 2024-02-28 08:01 | P.PN_ITS ---
Subjective Subjective Date Patient Seen: 02/28/24 Time Patient Seen: 08:01 Interval history: Patient seen in follow-up of acute respiratory failure, left lower lobe pneumonia, and multiple myeloma. Patient still not feeling great. Very fatigued. O2 level is coming down he is now on 4 L. By mask. No chest pain. Just fatigued and tired of coughing. Maybe feeling slightly better hard for him to tell. Otherwise no change or complaint. Exam Vital Signs (past 8 hours): - 02/28/24 03:00 02/28/24 07:00 Temperature 97.3 F L 98.1 F Pulse Rate 74 81 Respiratory Rate 20 21 Blood Pressure 146/66 H 150/75 H Pulse Oximetry 96 95 Oxygen Flow Rate 4 Oxygen Delivery Method Oximask Oxygen Flow Rate 4 Narrative Exam Narrative: Alert fatigued male diaphoretic sweating in no acute distress Mucous membranes moist neck supple without adenopathy lungs with pretty significant rhonchi and wheeze on the left side right is mostly clear. No retractions. Heart is regular rate and rhythm will do distant abdomen is soft positive bowel sounds tender extremities are normal neurologic exam is unremarkable Objective Labs 02/28/24 05:01 02/26/24 19:22 Labs: Laboratory Results - last 24 hr 02/28/24 05:01 WBC 1.5 L* RBC 2.95 L Hgb 9.7 L Hct 28.6 L MCV 96.8 MCH 32.9 MCHC 34.0 RDW 17.9 H Plt Count 118 L Neut % (Auto) Not Reportable Lymph % (Auto) Not Reportable [place] % (Auto) Not Reportable Eos % (Auto) Not Reportable Baso % (Auto) Not Reportable Lymph # (Auto) Not Reportable [place] # (Auto) Not Reportable Baso # (Auto) Not Reportable Total Counted 100 Seg Neutrophils % 44.0 Band Neutrophils % 33.0 H Lymphocytes % (Manual) 12.0 L Monocytes % (Manual) 10.0 Eosinophils % (Manual) 1.0 L Neutrophils # (Manual) 1155 L Platelet Estimate Decreased on smear RBC Morphology See below Anisocytosis 1+ H Microcytosis 1+ H Lima Cells 1+ H PFSH Medical History (Updated 02/27/24 @ 11:35 by Marie Parry MD) HFrEF (heart failure with reduced ejection fraction) Compression fracture Gout Multiple myeloma Hairy cell leukemia Surgical History No significant past surgical history Social History household members: spouse Smoking Status: Never smoker alcohol intake: never Assessment & Plan Assessment & Plan narrative: Right lower lobe pneumonia community-acquired complicated by coronavirus and parainfluenza. Slightly improved. On good coverage. Does not have MRSA coverage but should be an issue. Cultures are still negative. Will continue to follow. Continue current antibiotics. I suspect this will be Wednesday or before we really get to a point where we can discharge. Acute hypoxic respiratory failure. Secondary to combination of viral infection and left lower lobe pneumonia. Otherwise doing well. Patient with slight improvement of O2 requirement certainly working in the right direction. Hopefully will get him off oxygen over the next 24 hours but will see how it goes. Hard to tell. Will see what happens. Infectious Disease. On good coverage. All but MRSA. Negative MRSA from his nares. Cultures are pending we will continue to follow. Low white count. Certainly not concerning numbers but will have to watch. Rechecked tomorrow. Is making bands so that is positive. Will see how things go. Really not a lot different for he was yesterday. Will see how things go. Multiple myeloma. As per oncologist. Chrissie rucker had discussed with him. Currently off of dexamethasone no other changes. We will follow. History of congestive heart failure. Utility Gelatin Maker apparently manage. Currently not an issue but will continue to follow. Continue usual meds. Will be careful with IV use and follow. Re-evaluate in a.m.. Did not hear any crackles today. Feel like his fluid status is stable. DVT prophylaxis Lovenox Code status full. 55 minutes spent with chrissie rucker, chart review, patient has time dictation and orders Quality VTE Deep Vein Thrombosis/Pulmonary Embolism Present on Admission: No
[2024-02-28] MEDS: valACYclovir 500 MG TABLET PO ×2 (09:49→21:01)
[2024-02-28] MEDS: ENTRESTO 12.5 EACH PO ×2 (09:49→21:01)
[2024-02-28] MEDS: ENOXAPARIN 40 MG/0.4 ML SYRINGE SUBCUT (09:49)
[2024-02-28] MEDS: CODEINE/GUAIFENESIN LIQUID 5ML UDC 5 ML PO ×2 (09:51→18:23)
--- NOTE | 2024-02-28 11:00 | PT.IIE ---
Current Diagnoses Multiple myeloma not having achieved remission (02/26/24) Unspecified systolic (congestive) heart failure (02/26/24) Pneumonia, unspecified organism (02/26/24) Hypoxemia (02/26/24) Surgical History (Last Reviewed 07/18/22 @ 22:58 by Cinda Gale DO) No significant past surgical history Medical History (Last Updated 02/27/24 @ 11:34 by Marie Parry MD) Compression fracture Gout Hairy cell leukemia HFrEF (heart failure with reduced ejection fraction) Multiple myeloma Physical Therapy Inpatient Evaluation/Re-Eval M1 PT/OT-IP Prior Functional Status Start: 02/27/24 11:13 Freq: NEEDED Status: Active Protocol: Document 02/28/24 10:33 MB (Rec: 02/28/24 11:00 MB [id number]) Medical Review Prior Functional Status Medical History Reviewed Yes Diet/Fluid Consistency Regular Communication WNLs, pt with lots of coughing today Mobility and Gait I Activities of Daily Living and IADL's I, worked Social History Household Members spouse Living Arrangements House Number of Floors (Floors) Two Floors Number of Stairs To Enter/Railing? 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 M2 PT-IP Current Condition Start: 02/27/24 11:13 Freq: NEEDED Status: Active Protocol: Document 02/28/24 10:33 MB (Rec: 02/28/24 11:00 MB [id number]) Physical Therapy Current Condition Current Condition Evaluation Date 02/28/24 Treatment Diagnosis PNA, COVID, parainfluenza virus M3 PT-IP Subjective Start: 02/27/24 11:13 Freq: NEEDED Status: Active Protocol: Document 02/28/24 10:33 MB (Rec: 02/28/24 11:00 MB [id number]) Subjective Physical Therapy Visit Type Type Initial Evaluation Visit Start Time 10:33 Visit Stop Time 10:51 Number of PUBLISHING MANAGER Visits 0 Physical Therapy Visit Comments Patient Comments Pt is hypoverbal d/t feeling poor and coughing M4 PT-IP Mobility and Gait Start: 02/27/24 11:13 Freq: NEEDED Status: Active Protocol: Document 02/28/24 10:33 MB (Rec: 02/28/24 11:00 MB [id number]) PT-Bed Mobility Assessment Rolling Level of Assist Contact Guard Assistance,1 Person Assistance Supine to Sit Supine to Sit Contact Guard Assistance,1 Person Assistance,Head of Bed Elevated,Bedrails Scooting Scooting to Edge of Bed Contact Guard Assistance Scooting Up and Down in Bed Contact Guard Assistance PT-Transfer Assessment Sit to and From Stand Sit to and from Stand Contact Guard Assistance Equipment Transfer Assistive Device Gait Belt,Front Wheeled Walker Orthotic/Prosthetic Devices or Brace: No Transfers Transfer Destination Chair Transfer Technique A few steps Transfer Ability Level of Assist Contact Guard Assistance,1 Person Assistance,Use of Upper Extremities Comments Mobility Comments Short steps, wide [place] and decreased foot clearance Gait Assessment Gait Gait Assistance Required: Contact Guard Assist Distance (Feet) 2 Able to Maintain Weight Bearing Status Yes During Gait Assistive Devices Assistive Device Gait Belt,Front Wheeled Walker Orthotic/Prosthetic Devices or Brace: No Gait Deviations General Gait Pattern Decreased Stride Length, Decreased Feet Clearance, Flexed Trunk,Step-to Gait,Wide Based Gait Factors Limiting Gait Function Factors Limiting Gait Function Decreased Activity Tolerance, Decreased Strength,Difficulty Following Directions, Incoordination,Poor Balance, Poor Safety Awareness Comments Gait Comments Pt moves slowly, lots of coughing with mobility, decreased LE control, balance PT-Balance Assessment Sitting Balance and Reactions Static Sitting Balance Ability Good Dynamic Sitting Balance Ability Good Standing Balance and Reactions Static Standing Balance Ability Fair Dynamic Standing Balance Ability Fair Device Used RW M5 PT-IP Objective Assessments Start: 02/27/24 11:13 Freq: NEEDED Status: Active Protocol: Document 02/28/24 10:33 MB (Rec: 02/28/24 11:00 MB [id number]) Orientation Orientation/Cognition Level of Alertness Alert Orientation Name,Birthday,Place,Situation Language Function Ability No Deficits Noted Safety Awareness Decreased Safety Awareness Memory Description No Deficits Noted Gross Range of Motion Upper Extremity ROM Assessment Within Functional Limits Lower Extremity ROM Assessment Within Functional Limits Strength Comments Strength Comments MMT deferred today and grossly functional with mobility M6 PT-IP Treatment Start: 02/27/24 11:13 Freq: NEEDED Status: Active Protocol: Document 02/28/24 10:33 MB (Rec: 02/28/24 11:00 MB [id number]) Physical Therapy Treatment Education Education Provided Safety M7 PT-IP Assessment and Plan Start: 02/27/24 11:13 Freq: NEEDED Status: Active Protocol: Document 02/28/24 10:33 MB (Rec: 02/28/24 11:00 MB [id number]) PT Summary Assessment and Plan Potential Rehabilitation Potential Fair Status of Condition at Evaluation Evolving Summary Impairments Strength,Balance,Bed Mobility, Transfers,Gait,Activity Tolerance Progress Towards Goals Slow Progress due to Medical Issues,Slow Progress due to Activity Tolerance Assessment Summary Pt is very SOB and has frequent coughing on assessment date. His activity tolerance is low and encouraged pt to sit up in the chair d/t long leg length in bed and to help lungs/ breathing. Pt on 4L O2 and pulse ox removed for brief mobility d/t multiple lines and when returned to finger after getting up into the chair, sats remain in the 90s. Pt has functional weakness likely d/t acute respiratory illness. Will initiate PT to tolerance. Goals Bed Mobility Goal Independent Transfer Goal Independent Gait Goal Independent Gait Distance 100 Other Goals Pt will ascend and descend 5 steps with rail and mod I to allow safe home entry. Days to Meet Goals 10 Frequency of Treatment Frequency Of Treatment Once a Day Treatment Plan Physical Therapy Treatment Plan Bed Mobility Training,Transfer Training,Gait Training, Therapeutic Exercise,Balance Retraining,Discharge Planning, Hot or Cold Pack,Neuromuscular Re-ed,Coordination Retraining ,Manual Therapy Weight Bearing Status Weight Bearing Status Weight Bear as Tolerated Recommendations To Nursing Amount of Assist Needed 1 Person Assist Discharge Recommendations PT Discharge Recommendations Home with 17/05 Assist Available Transportation Needs at Discharge Private Vehicle
--- NOTE | 2024-02-28 12:10 | OT.IP.EVAL ---
Current Diagnoses Multiple myeloma not having achieved remission (02/26/24) Unspecified systolic (congestive) heart failure (02/26/24) Pneumonia, unspecified organism (02/26/24) Hypoxemia (02/26/24) Past Medical History (Last Updated 02/27/24 @ 11:34 by Marie Parry MD) Compression fracture Gout Hairy cell leukemia HFrEF (heart failure with reduced ejection fraction) Multiple myeloma Surgical History (Last Reviewed 07/18/22 @ 22:58 by Cinda Gale DO) No significant past surgical history Occupational Therapy Inpatient Evaluation/Re-Eval M1 PT/OT-IP Prior Functional Status Start: 02/27/24 11:13 Freq: NEEDED Status: Active Protocol: Document 02/28/24 14:53 CGR (Rec: 02/28/24 15:09 CGR [id number]) Medical Review Prior Functional Status Medical History Reviewed Yes Diet/Fluid Consistency Regular Communication WNLs, pt with lots of coughing today Mobility and Gait Ind in all mobility prior to admit. Activities of Daily Living and IADL's Ind in all ADLs except that LB dressing has become difficult . 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 Social History Household Members spouse Living Arrangements House Number of Floors (Floors) Two Floors Number of Stairs To Enter/Railing? Two homes: one on [place] (4 steps with R rail, bedroom on main leveler helper) and one on [facility] (3 steps with B railings, bedroom on second floor). 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 Pt has an adjustable bed at the [place] home. M2 OT-IP Current Condition Start: 02/28/24 14:52 Freq: Status: Active Protocol: Document 02/28/24 14:53 CGR (Rec: 02/28/24 15:09 CGR [id number]) Occupational Therapy Current Condition Current Condition Evaluation Date 02/28/24 Treatment Diagnosis PNA/para flu, undergoing chemo for multiple myeloma Diagnosis Onset Date 02/26/24 M3 OT- IP Subjective and Pain Start: 02/28/24 14:52 Freq: Status: Active Protocol: Document 02/28/24 14:53 CGR (Rec: 02/28/24 15:09 CGR [id number]) OT- Subjective Occupational Therapy Visit Type Type Initial Evaluation Visit Start Time 11:41 Visit Stop Time 12:10 Notes on 4L, maintained 97% or above throughotu session, notified nursing for o2 weaning if appropriate. OT Pain Assessment Pain When Pain Assessed At Rest Pain Present Pain Present Denied Pain M4 OT- IP ADL's Start: 02/28/24 14:52 Freq: Status: Active Protocol: Document 02/28/24 14:53 CGR (Rec: 02/28/24 15:09 CGR [id number]) OT [id number] Comments OT Self-Feeding Comments not meal time OT ADL-Grooming General Evaluation Grooming Ability Standby Assistance Areas Needing Assistance Face Washing Comments OT Grooming Comments standing at sink OT ADL-Oral Care General Eval Oral Care Ability Standby Assistance Areas of Assistance Brushing Teeth Comments Oral Care Comments standing at sink OT ADL-Dressing Comments OT Dressing Comments Pt states that he hasn't been doing his own LB dressing recently because it has become difficult OT ADL-Toileting Comments OT Toileting Comments not performed OT ADL-Bathing Comments OT Bathing Comments not performed M5 OT- IP IADL's Start: 02/28/24 14:52 Freq: Status: Active Protocol: Document 02/28/24 14:53 CGR (Rec: 02/28/24 15:09 CGR [id number]) OT-Instrumental Activities of Daily Living Deficits IADL Deficits Identified No Deficits Home Safety Awareness Awareness of Need for Assistance at Home Good Awareness Ability to Problem Solve Emergency Able to Problem Solve Situations Medication Management Medication Management No Deficits Identified Money Management Money Management Caregiver Provides Assistance Meal Preparation Meal Preparation Caregiver Provides Assist Turn Down Worker Turn Down Worker No Deficits Identified Driving Driving Comments 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 M6 OT- IP Functional Cognition Start: 02/28/24 14:52 Freq: Status: Active Protocol: Document 02/28/24 14:53 CGR (Rec: 02/28/24 15:09 CGR [id number]) Cognitive Factors Limiting Selfcare Function Cognitive Ability Level of Alertness Alert Patient Orientation Name,Age,Birthday,Month,Date, Year,Day of Week,Place, Situation Attention Span Ability Capable of Focused Attention, Capable of Sustained Attention Ability to Follow Commands Able to Follow Multi-Step Commands OT- Vision and Hearing OT- Hearing Assessment OT- Hearing Assessment WFL OT- Vision Assessment Visual Acuity Glasses All The Time,Glasses For Reading Visual Attentiveness WFL Occular Pursuits WFL Visual Convergence WFL M7 OT- IP Mobility and Balance Start: 02/28/24 14:52 Freq: Status: Active Protocol: Document 02/28/24 14:53 CGR (Rec: 02/28/24 15:09 CGR [id number]) OT-Transfer Assessment Sit to and From Stand Sit to and from Stand Contact Guard Assistance Transfers Transfer Ability Contact Guard Assistance Technique Transfer Destination Chair Transfer Technique Stand Step Pivot Devices Transfer Assistive Devices Gait Belt,Front Wheeled Walker Comments Mobility Comments mobility from chair to sink OT- Balance Assessment Sitting Balance and Reactions Static Sitting Balance Ability Good Dynamic Sitting Balance Ability Good M8 OT- IP Objective Assessments Start: 02/28/24 14:52 Freq: Status: Active Protocol: Document 02/28/24 14:53 CGR (Rec: 02/28/24 15:09 CGR [id number]) OT Gross Range of Motion Upper Extremity Range of Motion Assessment Within Functional Limits OT Strength Upper Extremity Strength Assessment Within Functional Limits Comments Strength Comments 4+/5 OT- Coordination Assessment Upper Extremity Finger to Nose Test Within Functional Limits Finger Tapping Test Within Functional Limits OT-Muscle Tone Assessment Muscle Tone WNL Yes OT Sensation Assessment Edema Edema Absent M9 OT- IP Assessment and Plan Start: 02/28/24 14:52 Freq: Status: Active Protocol: Document 02/28/24 14:53 CGR (Rec: 02/28/24 15:09 CGR [id number]) OT Summary Assessment and Plan Potential Rehabilitation Potential Excellent Analytic Complexity at Evaluation Low Summary OT Impairments Functional Mobility,Dressing, Bathing,Shower Transfers, Activity Tolerance Progress Towards Goals Slow Progress due to Activity Tolerance Assessment Summary Pt presents as a low complexity evaluation s/p admit for PNA. Pt is undergoing chemo for multiple myeloma. Pt is most impacted by endurance and states difficulty with LB dressing recently. Pt will benefit from 3-5 sessions to address declines in endurance and LB dressing. Recommend d/c home with family support. Goals Dressing Goal Independent,Maintenance Pipefitter,Sock Aid Bathing Goal Independent Toilet Transfer Goal Independent Shower Transfer Goal Independent Days to Meet Goals 5 Frequency of Treatment Frequency Of Treatment Once a Day Treatment Plan OT Treatment Plan ADL Training,Functional Mobility,Patient/Family Education,Discharge Planning Other Treatment Recommendations and Next shower, LB dressing with DMe. Treatment Focus Discharge Recommendations OT Discharge Recommendations Home with Assistance Transportation Needs at Discharge Private Vehicle
--- NOTE | 2024-02-28 15:24 | CM.DPNOTE ---
DCP Note CHEMICAL PUMPER reviewed EMR. Per chart review, pt on 4ltrs O2 at this time. Per PT/OT, rec home with assistance. Per previous CM notes, pt lives on [place] with spouse. Per provider PN, anticipate Wed or Thurs before medically stable to dc. Plan: anticipate home with spouse when medically stable. Will confirm transport closer to dc date. No identified barriers to safe dc home with spouse. CM team will continue to follow closely. DORITA Berry
[2024-02-28] MEDS: AZITHROMYCIN 500 MG in DEXTROSE 5% IN WATER 250 ML 250 MG IV (21:00)
[2024-02-28] MEDS: METOPROLOL ER 25 MG TABLET PO (21:01)
[2024-02-29] VITALS (9 sets, daily range): BP systolic 117–143; BP diastolic 55–69; PULSE 72–83; RESP 19–22; TEMP 36.5–36.6; O2SAT 93–98
[2024-02-29] MEDS: SODIUM CHLORIDE 0.9% FLUSH 10 ML IV ×4 (02:14→23:17)
[2024-02-29] MEDS: CEFEPIME 2 GM in SODIUM CHLORIDE 0.9% 100 ML IV ×3 (02:20→18:18)
[2024-02-29] MEDS: SODIUM CHLORIDE 0.9% 250 ML 21 ML IV (02:20)
[2024-02-29] MEDS: CODEINE/GUAIFENESIN LIQUID 5ML UDC 5 ML PO ×2 (02:23→21:26)
[2024-02-29] MEDS: BENZONATATE 100 MG CAPSULE 200 MG PO ×2 (04:59→18:28)
[2024-02-29 05:26] LABS: Hematocrit 29.6 % (41-53); Hemoglobin 9.9 g/dL (13.5-17.5); Mean Corpuscular HGB Conc 33.5 % (30-36); Mean Corpuscular Hemoglobin 32.6 PG (26-34); Mean Corpuscular Volume 97.5 fL (80-100); Platelet Count 136 X10^3/uL (150-400); Red Blood Cell Count 3.03 X10^6/uL (4.5-5.9); Red Cell Distribution Width 17.5 % (11.6-14.8)
[2024-02-29 05:28] LABS: Add Manual Diff / Slide Review YES
[2024-02-29 05:30] LABS: White Blood Cell Count 1.7 X10^3/uL (4.5-11.0)
[2024-02-29 05:33] LABS: Alanine Aminotransferase 12 IU/L (<50); Albumin 3.1 g/dL (3.5-5.0); Albumin Globulin Ratio 1.3 (1.0-2.8); Alkaline Phosphatase 79 U/L (38-126); Aspartate Aminotransferase 17 IU/L (17-59); BUN Creatinine Ratio 31.1 (6-22); Bilirubin Total 0.7 mg/dL (0.2-1.3); Blood Urea Nitrogen 23 mg/dL (9-20); Calcium 7.9 mg/dL (8.4-10.2); Carbon Dioxide 30 mmol/L (22-32); Chloride 107 mmol/L (98-107); Estimated Glomerular Filt Rate > 60 mL/min (>60); Globulin 2.3 g/dL (1.7-4.1); Glucose 95 mg/dL (80-110); HEMOLYSIS < 15 (0-50); Potassium 4.2 mmol/L (3.4-5.1); Sodium 139 mmol/L (137-145); Total Protein 5.4 g/dL (6.3-8.2)
[2024-02-29 06:18] LABS: Anisocytosis 1+; Microcytosis 1+; Neutrophils Absolute Manual 1071 /uL (3000-5900); Platelet Estimate Decreased on smear; Total Cells Counted 100
--- NOTE | 2024-02-29 08:17 | PM.PN.1 ---
Subjective Subjective Date Patient Seen: 02/29/24 Time Patient Seen: 08:17 Interval history: Patient seen in follow-up of pneumonia acute respiratory failure. Patient is feeling slightly better this morning. O2 was down to 3 L and now is back up to 5 or 6. Depending. Cough is still present. But feeling a little less fatigued this morning. No other significant change or complaints. Exam Vital Signs (past 8 hours): - 02/29/24 03:00 Temperature 97.7 F Pulse Rate 73 Respiratory Rate 19 Blood Pressure 134/55 L Pulse Oximetry 97 Oxygen Flow Rate 3 Oxygen Delivery Method Nasal Cannula Oxygen Flow Rate 3 Narrative Exam Narrative: Alert male much less fatigued and no diaphoresis this morning. Mucous membranes moist. Lungs with continued right-sided rhonchi but improved air flow. Left shows no significant changes. Anterior chest is normal. Heart is regular rate and rhythm without murmurs clicks rubs or gallops. Extremities without cyanosis clubbing edema Objective Labs 02/29/24 05:00 02/29/24 05:00 Labs: Laboratory Results - last 24 hr 02/29/24 05:00 WBC 1.7 L* RBC 3.03 L Hgb 9.9 L Hct 29.6 L MCV 97.5 MCH 32.6 MCHC 33.5 RDW 17.5 H Plt Count 136 L Neut % (Auto) Not Reportable Lymph % (Auto) Not Reportable [place] % (Auto) Not Reportable Eos % (Auto) Not Reportable Baso % (Auto) Not Reportable Lymph # (Auto) Not Reportable [place] # (Auto) Not Reportable Baso # (Auto) Not Reportable Total Counted 100 Seg Neutrophils % 27.0 L Band Neutrophils % 36.0 H Lymphocytes % (Manual) 17.0 L Monocytes % (Manual) 14.0 H Eosinophils % (Manual) 6.0 H Neutrophils # (Manual) 1071 L Platelet Estimate Decreased on smear RBC Morphology See below Anisocytosis 1+ H Microcytosis 1+ H Sodium 139 Potassium 4.2 Chloride 107 Carbon Dioxide 30 BUN 23 H Creatinine 0.74 Estimated GFR > 60 BUN/Creatinine Ratio 31.1 H Glucose 95 Calcium 7.9 L Total Bilirubin 0.7 AST 17 ALT 12 Alkaline Phosphatase 79 Total Protein 5.4 L Albumin 3.1 L Globulin 2.3 Albumin/Globulin Ratio 1.3 PFS Medical History (Updated 02/27/24 @ 11:35 by Marie Parry MD) HFrEF (heart failure with reduced ejection fraction) Compression fracture Gout Multiple myeloma Hairy cell leukemia Surgical History No significant past surgical history Social History household members: spouse Smoking Status: Never smoker alcohol intake: never Assessment & Plan Assessment & Plan narrative: Acute hypoxic respiratory failure. Patient overall maybe slightly improved. O2 status is about the same this morning although it was coming down. I am hoping today we will be able to continue to lower his sats. Move him around I think would help. And follow from there. It is just going to be slow given his illness. May need to consider home O2 will have to see how things go I am hoping he is going to resolve this while in the hospital is certainly not ready to switch to oral antibiotics. This is definitely coming from a combination of his viral and bacterial infection. Right lower lobe pneumonia. Community-acquired complicated by coronavirus and parainfluenza virus. Complicated by multiple myeloma and pancytopenia. Going to be a slow change. I feel like he looks better clinically today sounds better clinically today. Still not making huge progress and O2 requirement but we will continue to follow. If not much change tomorrow repeat chest x-ray just to be sure but certainly clinically better today will see how things go. Infectious Disease. Negative cultures should have good coverage will continue. No other change. Pancytopenia with low white count. Actually slightly improved today. Certainly not getting worse. Any change any lower will discuss with oncologist think we are okay at this time. Multiple myeloma. As per oncologist. Nothing change today. History of congestive heart failure. I do not see any evidence of significant failure. But may need to recheck chest x-ray tomorrow. DVT prophylaxis on Lovenox Code status full. Disposition. I am assuming it is going to take a couple of more days. Maybe by maybe by Wednesday he maybe able to go home will see how things go and how he turns the corner. Quality VTE Deep Vein Thrombosis/Pulmonary Embolism Present on Admission: No
[2024-02-29] MEDS: ENTRESTO 12.5 EACH PO ×2 (08:55→21:26)
[2024-02-29] MEDS: ENOXAPARIN 40 MG/0.4 ML SYRINGE SUBCUT (08:55)
[2024-02-29] MEDS: valACYclovir 500 MG TABLET PO ×2 (08:55→21:26)
--- NOTE | 2024-02-29 10:10 | PT.IPTN ---
Current Diagnoses Multiple myeloma not having achieved remission (02/26/24) Unspecified systolic (congestive) heart failure (02/26/24) Pneumonia, unspecified organism (02/26/24) Hypoxemia (02/26/24) Physical Therapy Treatment Note M2 PT-IP Current Condition Start: 02/27/24 11:13 Freq: NEEDED Status: Active Protocol: Document 02/28/24 10:33 MB (Rec: 02/28/24 11:00 MB [id number]) Physical Therapy Current Condition Current Condition Evaluation Date 02/28/24 Treatment Diagnosis PNA, COVID, parainfluenza virus M3 PT-IP Subjective Start: 02/27/24 11:13 Freq: NEEDED Status: Active Protocol: Document 02/29/24 10:39 TS (Rec: 02/29/24 10:52 TS [id number]) Subjective Physical Therapy Visit Type Type Treatment Note Visit Start Time 10:10 Visit Stop Time 10:34 Number of DOG BOARDER Visits 1 Physical Therapy Visit Comments Patient Comments Pt found resting in chair, is agreeable to PT. M4 PT-IP Mobility and Gait Start: 02/27/24 11:13 Freq: NEEDED Status: Active Protocol: Document 02/29/24 10:39 TS (Rec: 02/29/24 10:52 TS [id number]) PT-Transfer Assessment Sit to and From Stand Sit to and from Stand Contact Guard Assistance, Minimal Assistance Equipment Transfer Assistive Device Gait Belt,Front Wheeled Walker Orthotic/Prosthetic Devices or Brace: No Comments Mobility Comments Pt found resting on 3L's of o2 at 95%, HR low 90's. STS from chair CGA/[place] with FWW, pt is slow to stand. He ambulated in room ~50', Spo2 desat to 88% on 3L's, increased to 4. Pt rested in chair for ~3 mins to recover o2, Spo2 92% on 4L 's. STS x1 from chair CGA/[place] with FWW. He performed steps x3 with single rail CGA. pt ambulated back to chair. Spo2 87% on 4L's, HR 120. O2 increased to 4.5L's, pt recovered o2 to 93%, o2 decreased to 3L's. Pt was left in chair, RN notified. Gait Assessment Gait Gait Assistance Required: Standby Assistance Distance (Feet) 60 Able to Maintain Weight Bearing Status Yes During Gait Assistive Devices Assistive Device Gait Belt,Front Wheeled Walker Orthotic/Prosthetic Devices or Brace: No Gait Deviations General Gait Pattern Decreased Stride Length, Decreased Feet Clearance, Flexed Trunk,Step-to Gait,Wide Based Gait Factors Limiting Gait Function Factors Limiting Gait Function Decreased Activity Tolerance, Decreased Strength,Difficulty Following Directions, Incoordination,Poor Balance, Poor Safety Awareness Comments Gait Comments Pt moves slowly, lots of coughing with mobility, decreased LE control, balance Stair Climbing Assessment Evaluation Level of Assist On Stairs Contact Guard Assistance,1 Person Assistance Devices Stair Climbing Assistive Devices Left Railing Technique/Endurance Stair Climbing Direction Ascend and Descend Stair Climbing Technique Step to Step Number of Steps Climbed 3 Comments Stair Climbing Comments See mobility comments PT-Balance Assessment Sitting Balance and Reactions Static Sitting Balance Ability Good Dynamic Sitting Balance Ability Good Standing Balance and Reactions Static Standing Balance Ability Fair Dynamic Standing Balance Ability Fair Device Used RW M5 PT-IP Objective Assessments Start: 02/27/24 11:13 Freq: NEEDED Status: Active Protocol: Document 02/28/24 10:33 MB (Rec: 02/28/24 11:00 MB [id number]) Orientation Orientation/Cognition Level of Alertness Alert Orientation Name,Birthday,Place,Situation Language Function Ability No Deficits Noted Safety Awareness Decreased Safety Awareness Memory Description No Deficits Noted Gross Range of Motion Upper Extremity ROM Assessment Within Functional Limits Lower Extremity ROM Assessment Within Functional Limits Strength Comments Strength Comments MMT deferred today and grossly functional with mobility M6 PT-IP Treatment Start: 02/27/24 11:13 Freq: NEEDED Status: Active Protocol: Document 02/29/24 10:39 TS (Rec: 02/29/24 10:52 [id number]) Physical Therapy Treatment Education Education Provided Safety M7 PT-IP Assessment and Plan Start: 02/27/24 11:13 Freq: NEEDED Status: Active Protocol: Document 02/29/24 10:39 TS (Rec: 02/29/24 10:52 [id number]) PT Summary Assessment and Plan Potential Rehabilitation Potential Fair Summary Impairments Strength,Balance,Bed Mobility, Transfers,Gait,Activity Tolerance Progress Towards Goals Progressing Toward Goals Assessment Summary Praful is making some progress with his mobility. He is CGA/ [place] for STS from the chair with use of FWW. He progressed his gait to ~60'SBA with FWW. He progressed to stairs x3 with step stool CGA. His o2 desats to 87-88% with mobility and required increase in o2 to 4.5L's from 3L's and his HR increased to ~120. PT is recommending Home w/ 17/05 assist. Goals Bed Mobility Goal Independent Transfer Goal Independent Gait Goal Independent Gait Distance 100 Other Goals Pt will ascend and descend 5 steps with rail and mod I to allow safe home entry. Days to Meet Goals 10 Frequency of Treatment Frequency Of Treatment Once a Day Treatment Plan Physical Therapy Treatment Plan Bed Mobility Training,Transfer Training,Gait Training, Therapeutic Exercise,Balance Retraining,Discharge Planning, Hot or Cold Pack,Neuromuscular Re-ed,Coordination Retraining ,Manual Therapy Weight Bearing Status Weight Bearing Status Weight Bear as Tolerated Recommendations To Nursing Amount of Assist Needed Standby Assistance Discharge Recommendations PT Discharge Recommendations Home with 17/05 Assist Available Transportation Needs at Discharge Private Vehicle
--- NOTE | 2024-02-29 10:12 | CM.DPNOTE ---
DCP note ELECTRICAL ELECTRONICS TECHNICIAN reviewed EMR. per chart review/RN report, pt remains on 3ltrs O2. Per provider PN, maybe 03/02 or 03/03 dc. No new CM needs identified from chart review. Plan: anticipate home with spouse when medically stable. Will confirm transport closer to dc date. No identified barriers to safe dc home with spouse. CM team will continue to follow closely. DORITA Berry
--- NOTE | 2024-02-29 11:25 | OT.IP.TRT ---
Current Diagnoses Multiple myeloma not having achieved remission (02/26/24) Unspecified systolic (congestive) heart failure (02/26/24) Pneumonia, unspecified organism (02/26/24) Hypoxemia (02/26/24) Occupational Therapy Treatment Note M2 OT-IP Current Condition Start: 02/28/24 14:52 Freq: Status: Active Protocol: Document 02/28/24 14:53 CGR (Rec: 02/28/24 15:09 CGR [id number]) Occupational Therapy Current Condition Current Condition Evaluation Date 02/28/24 Treatment Diagnosis PNA/para flu, undergoing chemo for multiple myeloma Diagnosis Onset Date 02/26/24 M3 OT- IP Subjective and Pain Start: 02/28/24 14:52 Freq: Status: Active Protocol: Document 02/29/24 10:52 [facility] (Rec: 02/29/24 13:15 [facility] [id number]) OT- Subjective Occupational Therapy Visit Type Type Treatment Note Visit Start Time 10:52 Visit Stop Time 11:25 Occupational Therapy Visit Comments Patient Comments Pt agreed to go over ADL needs , pt also in the room. Patient/Caregiver Goals To go home. OT Pain Assessment Pain When Pain Assessed At Rest Pain Present Pain Present Denied Pain M4 OT- IP ADL's Start: 02/28/24 14:52 Freq: Status: Active Protocol: Document 02/29/24 10:52 [facility] (Rec: 02/29/24 13:15 [facility] [id number]) OT ADL-Dressing Comments OT Dressing Comments Able to show pt sock aid and practice use of it. OT ADL-Toileting Comments OT Toileting Comments not performed OT ADL-Bathing Comments OT Bathing Comments Suggested use of shower chair in the bath tub. In addition spoke of different options of having a transfer pole versus grab bar to help pt to get into and out of the tub/shower especially on days he is feeling weak. M5 OT- IP IADL's Start: 02/28/24 14:52 Freq: Status: Active Protocol: Document 02/28/24 14:53 CGR (Rec: 02/28/24 15:09 CGR [id number]) OT-Instrumental Activities of Daily Living Deficits IADL Deficits Identified No Deficits Home Safety Awareness Awareness of Need for Assistance at Home Good Awareness Ability to Problem Solve Emergency Able to Problem Solve Situations Medication Management Medication Management No Deficits Identified Money Management Money Management Caregiver Provides Assistance Meal Preparation Meal Preparation Caregiver Provides Assist Lift Builder Whole Lift Builder Whole No Deficits Identified Driving Driving Comments 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 M6 OT- IP Functional Cognition Start: 02/28/24 14:52 Freq: Status: Active Protocol: Document 02/28/24 14:53 CGR (Rec: 02/28/24 15:09 CGR [id number]) Cognitive Factors Limiting Selfcare Function Cognitive Ability Level of Alertness Alert Patient Orientation Name,Age,Birthday,Month,Date, Year,Day of Week,Place, Situation Attention Span Ability Capable of Focused Attention, Capable of Sustained Attention Ability to Follow Commands Able to Follow Multi-Step Commands OT- Vision and Hearing OT- Hearing Assessment OT- Hearing Assessment WFL OT- Vision Assessment Visual Acuity Glasses All The Time,Glasses For Reading Visual Attentiveness WFL Occular Pursuits WFL Visual Convergence WFL M7 OT- IP Mobility and Balance Start: 02/28/24 14:52 Freq: Status: Active Protocol: Document 02/28/24 14:53 CGR (Rec: 02/28/24 15:09 CGR [id number]) OT-Transfer Assessment Sit to and From Stand Sit to and from Stand Contact Guard Assistance Transfers Transfer Ability Contact Guard Assistance Technique Transfer Destination Chair Transfer Technique Stand Step Pivot Devices Transfer Assistive Devices Gait Belt,Front Wheeled Walker Comments Mobility Comments mobility from chair to sink OT- Balance Assessment Sitting Balance and Reactions Static Sitting Balance Ability Good Dynamic Sitting Balance Ability Good M8 OT- IP Objective Assessments Start: 02/28/24 14:52 Freq: Status: Active Protocol: Document 02/28/24 14:53 CGR (Rec: 02/28/24 15:09 CGR [id number]) OT Gross Range of Motion Upper Extremity Range of Motion Assessment Within Functional Limits OT Strength Upper Extremity Strength Assessment Within Functional Limits Comments Strength Comments 4+/5 OT- Coordination Assessment Upper Extremity Finger to Nose Test Within Functional Limits Finger Tapping Test Within Functional Limits OT-Muscle Tone Assessment Muscle Tone WNL Yes OT Sensation Assessment Edema Edema Absent M9 OT- IP Assessment and Plan Start: 02/28/24 14:52 Freq: Status: Active Protocol: Document 02/29/24 10:52 [facility] (Rec: 02/29/24 13:15 [facility] [id number]) OT Summary Assessment and Plan Potential Rehabilitation Potential Excellent Analytic Complexity at Evaluation Low Summary OT Impairments Functional Mobility,Dressing, Bathing,Shower Transfers, Activity Tolerance Progress Towards Goals Slow Progress due to Activity Tolerance Assessment Summary Able to go over equipment needs for LB dressing , and suggested shower chair and possible use of transfer pole to increase safety to step in and out of the tub especially when feeling weak. Able to go over energy conservation strategies with the pt. Pt to go home when medically stable . ALso educated pt on being mindful of his breathing and able to watch the O2 monitor. Goals Dressing Goal Independent,Loan Officer Assistant,Sock Aid Bathing Goal Independent Toilet Transfer Goal Independent Shower Transfer Goal Independent Days to Meet Goals 7 Frequency of Treatment Frequency Of Treatment Once a Day Treatment Plan OT Treatment Plan ADL Training,Functional Mobility,Patient/Family Education,Discharge Planning Other Treatment Recommendations and Next shower Treatment Focus Discharge Recommendations OT Discharge Recommendations Home with Assistance Home Equipment Needs Showr chair, sock aid, transfer pole? Transportation Needs at Discharge Private Vehicle
[2024-02-29] MEDS: METOPROLOL ER 25 MG TABLET PO (21:26)
[2024-03-01] VITALS (9 sets, daily range): BP systolic 120–153; BP diastolic 56–93; PULSE 67–102; RESP 16–20; TEMP 36.3–36.8; O2SAT 92–97
[2024-03-01] MEDS: CEFEPIME 2 GM in SODIUM CHLORIDE 0.9% 100 ML IV ×3 (01:58→17:45)
[2024-03-01 05:39] LABS: Add Manual Diff / Slide Review NO; Basophils Absolute Auto 100 /uL (0-100); Basophils Percent Auto 3.2 % (0-2); Eosinophils Absolute Auto 100 /uL (0-450); Eosinophils Percent Auto 7.1 % (2-4); Hematocrit 27.2 % (41-53); Hemoglobin 9.3 g/dL (13.5-17.5); Lymphocytes Absolute Auto 300 /uL (1100-4500); Lymphocytes Percent Auto 18.8 % (25-40); Mean Corpuscular HGB Conc 34.1 % (30-36); Mean Corpuscular Hemoglobin 32.8 PG (26-34); Mean Corpuscular Volume 96.4 fL (80-100); Monocytes Absolute Auto 300 /uL (0-900); Monocytes Percent Auto 20.4 % (3-14); Neutrophils Absolute Auto 800 /uL (1500-7000); Neutrophils Percent Auto 50.5 % (50-75); Platelet Count 146 X10^3/uL (150-400); Red Blood Cell Count 2.82 X10^6/uL (4.5-5.9); Red Cell Distribution Width 17.4 % (11.6-14.8)
[2024-03-01 05:45] LABS: White Blood Cell Count 1.7 X10^3/uL (4.5-11.0)
--- NOTE | 2024-03-01 08:53 | PM.PN.1 ---
Subjective Subjective Date Patient Seen: 03/01/24 Time Patient Seen: 08:53 Interval history: Patient seen in follow-up of respiratory failure and pneumonia. Feeling slightly better today. Still coughing a lot. Fatigued. Week. But feeling like he has breathing a little better. With no other changes. Exam Vital Signs (past 8 hours): - 03/01/24 05:07 Temperature 97.4 F L Pulse Rate 67 Respiratory Rate 20 Blood Pressure 147/69 H Pulse Oximetry 96 Oxygen Flow Rate 2 Fraction of Inspired Oxygen 32 SaO2/FiO2 Ratio 306 Oxygen Delivery Method Nasal Cannula Oxygen Flow Rate 2 Narrative Exam Narrative: Alert male less fatigued in appearance on nasal cannula today. Mucous membranes moist lungs most of the right lung with rhonchi and crackles. Slight rhonchi left base. No other change. Heart is regular rate and rhythm. Neurologic exam is normal. Objective Labs 03/01/24 05:04 02/29/24 05:00 Labs: Laboratory Results - last 24 hr 03/01/24 05:04 WBC 1.7 L* RBC 2.82 L Hgb 9.3 L Hct 27.2 L MCV 96.4 MCH 32.8 MCHC 34.1 RDW 17.4 H Plt Count 146 L Neut % (Auto) 50.5 Lymph % (Auto) 18.8 L [place] % (Auto) 20.4 H Eos % (Auto) 7.1 H Baso % (Auto) 3.2 H Neut # (Auto) 800 L Lymph # (Auto) 300 L [place] # (Auto) 300 Eos # (Auto) 100 Baso # (Auto) 100 PFS Medical History (Updated 02/27/24 @ 11:35 by Marie Parry MD) HFrEF (heart failure with reduced ejection fraction) Compression fracture Gout Multiple myeloma Hairy cell leukemia Surgical History No significant past surgical history Social History household members: spouse Smoking Status: Never smoker alcohol intake: never Assessment & Plan Assessment & Plan narrative: Acute hypoxic respiratory failure. Improving. Slowly. No on 2 L. off mask. All related to infection with bacterial right lobe pneumonia and viral syndrome. Been slow improvement but is having improvement. No changes at this point. Hoping to mobilize a little bit today to see if we can get him further improvement and ready for home. Will be difficult since he was isolated due to his to viruses. No other change. Right lower lobe pneumonia. Inpatient with coronavirus and parainfluenza infection viral. No obvious source but certainly concern with the patient's immune compromise secondary to his pancytopenia with his multiple myeloma and treatment. White count is still stable. Not dropping. Clinically improved today. Hoping in the next 24-48 hours we can move to oral medications I think Cipro would be maybe a good choice. Would cover most of concerning treatment and get good blood levels. He was on a 3rd generation oral cephalosporin when he presented and will have to decide what would be the best next treatment but it is going to be somewhat of a guess since we do not have a bacterial source. Cultures continue to be negative. Infectious disease. To positive viral indicators but would not be giving us the right lower lobe pneumonia that is present. At this point coverage is broad and will have to see how it goes. Re-evaluate a.m.. Pancytopenia. Stable. Slight drop in hematocrit but probably not significant will rechecked tomorrow. White count is stable still low but not below any requirement to change. Will follow. Any change will discuss with oncologist again. Multiple myeloma stable. History of congestive heart failure. Seems to be euvolemic. Continues to improve do not think we have to repeat x-ray. Do not think we have to change treatment at this point. DVT prophylaxis on Lovenox. Code status full. Disposition. Ideally we are switching to orals tomorrow although that maybe Wednesday. Hope discharge Wednesday or Wednesday. Will just have to see how things go. He is going to need 24 hours on oral antibiotics before he goes home. Discussed with the patient. . Nursing. Quality VTE Deep Vein Thrombosis/Pulmonary Embolism Present on Admission: No
[2024-03-01] MEDS: ENTRESTO 12.5 EACH PO ×2 (09:25→20:33)
[2024-03-01] MEDS: valACYclovir 500 MG TABLET PO ×2 (09:25→20:33)
[2024-03-01 09:26] LABS: Hematocrit 29.7 % (41-53); Mean Corpuscular HGB Conc 33.5 % (30-36); Mean Corpuscular Hemoglobin 32.7 PG (26-34); Mean Corpuscular Volume 97.5 fL (80-100); Platelet Count 160 X10^3/uL (150-400); Red Blood Cell Count 3.05 X10^6/uL (4.5-5.9); Red Cell Distribution Width 17.4 % (11.6-14.8)
[2024-03-01] MEDS: SODIUM CHLORIDE 0.9% FLUSH 10 ML IV ×3 (09:26→20:39)
[2024-03-01] MEDS: ENOXAPARIN 40 MG/0.4 ML SYRINGE SUBCUT (09:26)
[2024-03-01 09:29] LABS: Add Manual Diff / Slide Review YES; White Blood Cell Count 1.8 X10^3/uL (4.5-11.0)
[2024-03-01 09:58] LABS: Neutrophils Absolute Manual 1116 /uL (3000-5900); Total Cells Counted 50
[2024-03-01 10:03] LABS: Anisocytosis 1+
--- NOTE | 2024-03-01 10:29 | CM.DPNOTE ---
DCP Note SURVEYING TECHNICIAN reviewed EMR. Per Goyo PN, plan is to switch to orals tomorrow/ vs Wednesday. Goyo reports pt will need a full 24hrs on oral antibiotics before home. Potential dc Wednesday or Wednesday. Pt remains on isolation precautions. Plan: home with spouse to [place] when medically stable. No CM needs identified at this point. CM team will continue to follow closely. DORITA Berry
--- NOTE | 2024-03-01 10:35 | PT-IP ANOTE ---
Pt refused to work with PT this AM. Will attempt to see in afternoon.
--- NOTE | 2024-03-01 12:25 | PT.IPTN ---
Current Diagnoses Multiple myeloma not having achieved remission (02/26/24) Unspecified systolic (congestive) heart failure (02/26/24) Pneumonia, unspecified organism (02/26/24) Hypoxemia (02/26/24) Physical Therapy Treatment Note M2 PT-IP Current Condition Start: 02/27/24 11:13 Freq: NEEDED Status: Active Protocol: Document 02/28/24 10:33 MB (Rec: 02/28/24 11:00 MB [id number]) Physical Therapy Current Condition Current Condition Evaluation Date 02/28/24 Treatment Diagnosis PNA, COVID, parainfluenza virus M3 PT-IP Subjective Start: 02/27/24 11:13 Freq: NEEDED Status: Active Protocol: Document 03/01/24 13:07 TS (Rec: 03/01/24 13:12 TS [id number]) Subjective Physical Therapy Visit Type Type Treatment Note Visit Start Time 12:25 Visit Stop Time 12:56 Number of SLIP LASTER Visits 2 Physical Therapy Visit Comments Patient Comments Pt found resting in chair, is agreeable to PT. M4 PT-IP Mobility and Gait Start: 02/27/24 11:13 Freq: NEEDED Status: Active Protocol: Document 03/01/24 13:07 TS (Rec: 03/01/24 13:12 TS [id number]) PT-Transfer Assessment Sit to and From Stand Sit to and from Stand Minimal Assistance Equipment Transfer Assistive Device Gait Belt,Front Wheeled Walker Orthotic/Prosthetic Devices or Brace: No Comments Mobility Comments Pt found resting on 2L's of o2 at 97%. STS from chair [place] for balance, pt has difficulty standing from low surface of chair. He ambulated ~175'SBA with FWW, reports knee pain initially and improves with increase mobility. Pt ambulated back to room, Spo2 90% on 2L's. Pt was left in chair all needs met. Gait Assessment Gait Gait Assistance Required: Standby Assistance Distance (Feet) 175 Able to Maintain Weight Bearing Status Yes During Gait Assistive Devices Assistive Device Gait Belt,Front Wheeled Walker Orthotic/Prosthetic Devices or Brace: No Gait Deviations General Gait Pattern Decreased Stride Length, Decreased Feet Clearance, Flexed Trunk,Step-to Gait,Wide Based Gait Factors Limiting Gait Function Factors Limiting Gait Function Decreased Activity Tolerance, Decreased Strength,Difficulty Following Directions, Incoordination,Poor Balance, Poor Safety Awareness PT-Balance Assessment Sitting Balance and Reactions Static Sitting Balance Ability Good Dynamic Sitting Balance Ability Good Standing Balance and Reactions Static Standing Balance Ability Fair Dynamic Standing Balance Ability Fair Device Used RW M5 PT-IP Objective Assessments Start: 02/27/24 11:13 Freq: NEEDED Status: Active Protocol: Document 02/28/24 10:33 MB (Rec: 02/28/24 11:00 MB [id number]) Orientation Orientation/Cognition Level of Alertness Alert Orientation Name,Birthday,Place,Situation Language Function Ability No Deficits Noted Safety Awareness Decreased Safety Awareness Memory Description No Deficits Noted Gross Range of Motion Upper Extremity ROM Assessment Within Functional Limits Lower Extremity ROM Assessment Within Functional Limits Strength Comments Strength Comments MMT deferred today and grossly functional with mobility M6 PT-IP Treatment Start: 02/27/24 11:13 Freq: NEEDED Status: Active Protocol: Document 03/01/24 13:07 TS (Rec: 03/01/24 13:12 TS [id number]) Physical Therapy Treatment Education Education Provided Safety M7 PT-IP Assessment and Plan Start: 02/27/24 11:13 Freq: NEEDED Status: Active Protocol: Document 03/01/24 13:07 TS (Rec: 03/01/24 13:12 TS [id number]) PT Summary Assessment and Plan Potential Rehabilitation Potential Fair Summary Impairments Strength,Balance,Bed Mobility, Transfers,Gait,Activity Tolerance Progress Towards Goals Progressing Toward Goals Assessment Summary Praful continues to make progress with his mobility. He progressed his gait to ~175' SBA with FWW. He required 2L's of o2 to remain above Spo2 of 90%. He denied any SOB with mobility. PT is recommending home with 24/7 assist. Goals Bed Mobility Goal Independent Transfer Goal Independent Gait Goal Independent Gait Distance 100 Other Goals Pt will ascend and descend 5 steps with rail and mod I to allow safe home entry. Days to Meet Goals 10 Frequency of Treatment Frequency Of Treatment Once a Day Treatment Plan Physical Therapy Treatment Plan Bed Mobility Training,Transfer Training,Gait Training, Therapeutic Exercise,Balance Retraining,Discharge Planning, Hot or Cold Pack,Neuromuscular Re-ed,Coordination Retraining ,Manual Therapy Weight Bearing Status Weight Bearing Status Weight Bear as Tolerated Recommendations To Nursing Amount of Assist Needed Standby Assistance Discharge Recommendations PT Discharge Recommendations Home with 24/7 Assist Available Transportation Needs at Discharge Private Vehicle
--- NOTE | 2024-03-01 15:00 | OT.IPNOTE ---
Spoke to pt and his of OT needs. Pt and aware of suggested equipment needs and that his will just be assisting the pt as needed. Pt wanting to focus on PT for activity tolerance and therefore agreed to be discharged from OT services. Case management noticed and to notify pt's nurse.
[2024-03-01] MEDS: CODEINE/GUAIFENESIN LIQUID 5ML UDC 5 ML PO (20:33)
[2024-03-01] MEDS: METOPROLOL ER 25 MG TABLET PO (20:33)
[2024-03-02] VITALS (9 sets, daily range): BP systolic 111–158; BP diastolic 54–70; PULSE 76–93; RESP 16–21; TEMP 36.2–36.8; O2SAT 83–99
[2024-03-02] MEDS: CEFEPIME 2 GM in SODIUM CHLORIDE 0.9% 100 ML IV ×3 (02:04→17:37)
[2024-03-02 05:17] LABS: Add Manual Diff / Slide Review NO; Basophils Absolute Auto 100 /uL (0-100); Basophils Percent Auto 4.1 % (0-2); Eosinophils Absolute Auto 100 /uL (0-450); Eosinophils Percent Auto 5.1 % (2-4); Hematocrit 25.7 % (41-53); Hemoglobin 8.8 g/dL (13.5-17.5); Lymphocytes Absolute Auto 400 /uL (1100-4500); Lymphocytes Percent Auto 22.7 % (25-40); Mean Corpuscular HGB Conc 34.1 % (30-36); Mean Corpuscular Hemoglobin 33.1 PG (26-34); Monocytes Absolute Auto 400 /uL (0-900); Monocytes Percent Auto 22.4 % (3-14); Neutrophils Absolute Auto 800 /uL (1500-7000); Neutrophils Percent Auto 45.7 % (50-75); Platelet Count 163 X10^3/uL (150-400); Red Blood Cell Count 2.65 X10^6/uL (4.5-5.9); Red Cell Distribution Width 17.5 % (11.6-14.8)
[2024-03-02 05:19] LABS: White Blood Cell Count 1.8 X10^3/uL (4.5-11.0)
[2024-03-02] MEDS: ENOXAPARIN 40 MG/0.4 ML SYRINGE SUBCUT (09:57)
[2024-03-02] MEDS: valACYclovir 500 MG TABLET PO ×2 (09:57→21:15)
[2024-03-02] MEDS: SODIUM CHLORIDE 0.9% FLUSH 10 ML IV ×2 (09:58→21:26)
[2024-03-02] MEDS: BENZONATATE 100 MG CAPSULE 200 MG PO ×2 (09:58→21:22)
[2024-03-02] MEDS: ENTRESTO 12.5 EACH PO ×2 (10:00→21:14)
--- NOTE | 2024-03-02 14:08 | CM.DPC ---
DCP Note Reviewed EMR and team rounds for pt?s medical status. Dr. Nance reports pt will need a full 24hrs on oral antibiotics before home. Per team rounds, pt is still on 2L O2, might order a RT eval for ambulation. Pt remains on isolation precautions. Plan: Discharge home with spouse to [place] after 24h on PO antibiotic. No CM needs identified at this time. CM team will continue to follow for any pending dc needs. KAUSHAL Wilkinson
--- NOTE | 2024-03-02 14:24 | PM.PN.1 ---
Subjective Subjective Date Patient Seen: 03/02/24 Time Patient Seen: 10:00 Interval history: CC: pneumonia and MM Pt reports feeling a bit better today - still on 3L O2 supplement but able to get up go to bathroom sit in chair. Still some crackles on RLL Exam Vital Signs (past 8 hours): - 03/02/24 07:00 03/02/24 08:00 03/02/24 12:00 Temperature 98.0 F 97.8 F Pulse Rate 87 85 Respiratory Rate 16 16 Blood Pressure 139/67 146/62 H Pulse Oximetry 99 98 Oxygen Delivery Method Oximask Oxygen Flow Rate 2 Fraction of Inspired Oxygen 32 SaO2/FiO2 Ratio 306 Oxygen Delivery Method Oximask Oxygen Flow Rate 2 Narrative Exam Narrative: sitting up in chair on 3L looks tired Resp Other: moving air well - crackles/rhonchi moderate in RLL - on 3L Cardio Other: RRR, well perfused but looks pale GI Other: soft nontender nondistended Neuro Other: alert oriented conversant Objective Labs 03/02/24 04:33 02/29/24 05:00 Labs: Laboratory Results - last 24 hr 03/02/24 04:33 WBC 1.8 L* RBC 2.65 L Hgb 8.8 L Hct 25.7 L MCV 97.0 MCH 33.1 MCHC 34.1 RDW 17.5 H Plt Count 163 Neut % (Auto) 45.7 L Lymph % (Auto) 22.7 L [place] % (Auto) 22.4 H Eos % (Auto) 5.1 H Baso % (Auto) 4.1 H Neut # (Auto) 800 L Lymph # (Auto) 400 L [place] # (Auto) 400 Eos # (Auto) 100 Baso # (Auto) 100 [facility] Medical History (Updated 02/27/24 @ 11:35 by Marie Parry MD) HFrEF (heart failure with reduced ejection fraction) Compression fracture Gout Multiple myeloma Hairy cell leukemia Surgical History No significant past surgical history Social History household members: spouse Smoking Status: Never smoker alcohol intake: never Assessment & Plan Assessment & Plan narrative: #Acute hypoxic respiratory failure Stable, on 3L, 2/2 pneumonia, he is mobilizing and looking ok on his feet but easily tired. Lung sounds are still concerning - continue iv abx one more day i think #Right lower lobe pneumonia Inpatient with coronavirus and parainfluenza infection viral negative cultures but seems bacterial - in setting of immune compromise. continue IV abx. likely cipro after - he already failed a third gen cephalosporin. #Pancytopenia Stable, contributory, monitor. WBCs over 1.0 #Multiple myeloma stable #History of congestive heart failure. Seems to be euvolemic. Continues to improve do not think we have to repeat x-ray. Do not think we have to change treatment at this point. DVT prophylaxis: Lovenox Code status: full Dispo: hopefully ready for orals tomorrow then home maybe after another 24 hours of orals. May need oxygen concentrator on discharge he was not needing it previously. PCP: Papi Zelaya VTE Deep Vein Thrombosis/Pulmonary Embolism Present on Admission: No
--- NOTE | 2024-03-02 15:29 | PT-IP ANOTE ---
Pt refused to work with PT this afternoon. He reports being fatigued and would like to rest. PT will check on pt tomorrow morning.
--- NOTE | 2024-03-02 17:09 | DIET.CONS ---
Dietary Consultation Note Admission Date: 02/26/2024 20:54 Assessment: 73 y M admitted for pneumonia, hx of HFrEF and multiple myeloma undergoing chemotherapy. Nutrition screened for LOS. Pt sleeping, chart reviewed. No weight loss noted in chart wt hx. Low po intake ~50% noted. Coordinated with unit host for high energy/ protein options/supplements. Ht: 190.5 cm Wt: 104.961 kg BMI: 28.9 UBW: 102-103 kg Last BM: 03/01/24 (03/01/24 17:00) MNA: 14 Jaden Score: 17 Diet: 02/26/24 Dinner General (Regular) Diet Diet Modifications: Food Texture: Level 7 - Regular Liquid Consistency: Level 0 - Thin Nutrition Percent Meal Consumed 50% 03/02/24 12:00 Percent Meal Consumed 50% 03/02/24 08:00 Percent Meal Consumed 50% 03/01/24 17:00 Percent Meal Consumed 25% 03/01/24 12:00 Percent Meal Consumed 50% 03/01/24 09:00 Labs: RBC 2.65 X10^6/uL (4.5-5.9) L 03/02/24 04:33 Hgb 8.8 g/dL (13.5-17.5) L 03/02/24 04:33 Hct 25.7 % (41-53) L 03/02/24 04:33 Creatinine 0.74 mg/dL (0.66-1.25) 02/29/24 05:00 Lactate 1.1 mmol/L (0.7-2.1) 02/26/24 19:22 NT-Pro-B Natriuret Pep 1880 pg/mL (<125) H 02/26/24 19:22 Nutrition Diagnosis: Inadequate oral intake r/t to decreased appetite aeb <75% intake Interventions: 1. Protein supplementation with meals EER: [id number] kcals (20-23 kcal/kg compared with MSJ x1.25) 105-115 g protein (1.2 per HF, chemotherapy) Monitoring/Evaluations: po intakes Electronically Signed by: Yahaira Hernandez 03/02/24 17:09 Clinical Dietitian [address] [id number]
[2024-03-02] MEDS: METOPROLOL ER 25 MG TABLET PO (21:14)
[2024-03-02] MEDS: CODEINE/GUAIFENESIN LIQUID 5ML UDC 5 ML PO (21:14)
[2024-03-03] VITALS (9 sets, daily range): BP systolic 119–155; BP diastolic 61–85; PULSE 82–100; RESP 16–20; TEMP 36.2–36.8; O2SAT 95–99
[2024-03-03] MEDS: CEFEPIME 2 GM in SODIUM CHLORIDE 0.9% 100 ML IV ×3 (02:50→18:26)
[2024-03-03 05:58] LABS: HEMOLYSIS < 15 (0-50); Potassium 3.9 mmol/L (3.4-5.1)
[2024-03-03 05:59] LABS: Alanine Aminotransferase 14 IU/L (<50); Albumin Globulin Ratio 1.3 (1.0-2.8); Alkaline Phosphatase 83 U/L (38-126); Aspartate Aminotransferase 22 IU/L (17-59); BUN Creatinine Ratio 26.2 (6-22); Bilirubin Total 0.5 mg/dL (0.2-1.3); Blood Urea Nitrogen 17 mg/dL (9-20); Carbon Dioxide 35 mmol/L (22-32); Chloride 103 mmol/L (98-107); Estimated Glomerular Filt Rate > 60 mL/min (>60); Globulin 2.3 g/dL (1.7-4.1); Glucose 96 mg/dL (80-110); Sodium 135 mmol/L (137-145); Total Protein 5.3 g/dL (6.3-8.2)
[2024-03-03 06:10] LABS: Add Manual Diff / Slide Review NO; Basophils Absolute Auto 100 /uL (0-100); Basophils Percent Auto 4.5 % (0-2); Eosinophils Absolute Auto 100 /uL (0-450); Hematocrit 26.6 % (41-53); Lymphocytes Absolute Auto 400 /uL (1100-4500); Lymphocytes Percent Auto 20.3 % (25-40); Mean Corpuscular Hemoglobin 32.8 PG (26-34); Mean Corpuscular Volume 96.5 fL (80-100); Monocytes Absolute Auto 500 /uL (0-900); Monocytes Percent Auto 24.3 % (3-14); Neutrophils Absolute Auto 900 /uL (1500-7000); Neutrophils Percent Auto 44.9 % (50-75); Platelet Count 215 X10^3/uL (150-400); Red Blood Cell Count 2.75 X10^6/uL (4.5-5.9); Red Cell Distribution Width 17.6 % (11.6-14.8)
--- NOTE | 2024-03-03 07:56 | DI.RAD.S_ITS ---
PROCEDURE: XR CHEST 2V INDICATIONS: hypoxia TECHNIQUE: 2 views of the chest were acquired. COMPARISON: [facility], CR, XR CHEST 1V, 02/26/2024, 19:23. [facility], CR, XR CHEST 2V, 02/27/2020, 8:50. FINDINGS: Surgical changes and devices: Right chest Port-A-Cath is seen in stable position. Lungs and pleura: Bilateral pulmonary opacities appear mildly worse when compared to the exam from 02/26/2024. No significant pleural effusion or pneumothorax is seen. Mediastinum: Mediastinal contours are normal. Heart size is normal. Suspected hiatal hernia. Bones and chest wall: No suspicious bony abnormalities. Soft tissues appear unremarkable. IMPRESSION: Bilateral pulmonary opacities appear mildly worse when compared to the most recent prior exam. Approved by: Joseph Welch M.D. on 03/03/2024 at 8:45
[2024-03-03] MEDS: ENOXAPARIN 40 MG/0.4 ML SYRINGE SUBCUT (08:48)
[2024-03-03] MEDS: guaiFENesin ER 600 MG TAB PO (08:49)
[2024-03-03] MEDS: FUROSEMIDE 20 MG/2 ML VIAL IV (08:49)
[2024-03-03] MEDS: BENZONATATE 100 MG CAPSULE 200 MG PO ×2 (08:49→19:57)
[2024-03-03] MEDS: SODIUM CHLORIDE 0.9% FLUSH 10 ML IV ×2 (08:50→20:25)
[2024-03-03] MEDS: valACYclovir 500 MG TABLET PO ×2 (08:53→19:57)
[2024-03-03] MEDS: ENTRESTO 12.5 EACH PO ×2 (09:02→20:25)
--- NOTE | 2024-03-03 11:05 | PT.IPTN ---
Current Diagnoses Multiple myeloma not having achieved remission (02/26/24) Unspecified systolic (congestive) heart failure (02/26/24) Pneumonia, unspecified organism (02/26/24) Hypoxemia (02/26/24) Physical Therapy Treatment Note M2 PT-IP Current Condition Start: 02/27/24 11:13 Freq: NEEDED Status: Active Protocol: Document 02/28/24 10:33 MB (Rec: 02/28/24 11:00 MB [id number]) Physical Therapy Current Condition Current Condition Evaluation Date 02/28/24 Treatment Diagnosis PNA, COVID, parainfluenza virus M3 PT-IP Subjective Start: 02/27/24 11:13 Freq: NEEDED Status: Active Protocol: Document 03/03/24 11:33 TS (Rec: 03/03/24 11:42 TS [id number]) Subjective Physical Therapy Visit Type Type Treatment Note Visit Start Time 11:05 Visit Stop Time 11:29 Number of REGIONAL BRANCH MANAGER Visits 3 Physical Therapy Visit Comments Patient Comments Pt found resting chair, reports feeling more fatigued this morning, is agreeable to PT. M4 PT-IP Mobility and Gait Start: 02/27/24 11:13 Freq: NEEDED Status: Active Protocol: Document 03/03/24 11:33 TS (Rec: 03/03/24 11:42 TS [id number]) PT-Transfer Assessment Sit to and From Stand Sit to and from Stand Maximum Assistance,1 Person Assistance,Use of Upper Extremities Equipment Transfer Assistive Device Gait Belt,Front Wheeled Walker Orthotic/Prosthetic Devices or Brace: No Comments Mobility Comments Pt resting on 2.5L's at 97%. STS from chair MaxA with FWW. Pt stood for ~2mins with FWW. STS again from chair MaxA with FWW. Pt took x6 sidesteps with FWW along chair. Pt was left back in chair, all needs met. Gait Assessment Gait Gait Assistance Required: Contact Guard Assist Distance (Feet) 5 Able to Maintain Weight Bearing Status Yes During Gait Assistive Devices Assistive Device Gait Belt,Front Wheeled Walker Orthotic/Prosthetic Devices or Brace: No Gait Deviations General Gait Pattern Decreased Stride Length, Decreased Feet Clearance, Flexed Trunk,Step-to Gait,Wide Based Gait Factors Limiting Gait Function Factors Limiting Gait Function Decreased Activity Tolerance, Decreased Strength,Difficulty Following Directions, Incoordination,Poor Balance, Poor Safety Awareness PT-Balance Assessment Sitting Balance and Reactions Static Sitting Balance Ability Good Dynamic Sitting Balance Ability Good Standing Balance and Reactions Static Standing Balance Ability Fair Dynamic Standing Balance Ability Fair Device Used RW M5 PT-IP Objective Assessments Start: 02/27/24 11:13 Freq: NEEDED Status: Active Protocol: Document 02/28/24 10:33 MB (Rec: 02/28/24 11:00 MB [id number]) Orientation Orientation/Cognition Level of Alertness Alert Orientation Name,Birthday,Place,Situation Language Function Ability No Deficits Noted Safety Awareness Decreased Safety Awareness Memory Description No Deficits Noted Gross Range of Motion Upper Extremity ROM Assessment Within Functional Limits Lower Extremity ROM Assessment Within Functional Limits Strength Comments Strength Comments MMT deferred today and grossly functional with mobility M6 PT-IP Treatment Start: 02/27/24 11:13 Freq: NEEDED Status: Active Protocol: Document 03/03/24 11:33 TS (Rec: 03/03/24 11:42 TS [id number]) Physical Therapy Treatment Education Education Provided Safety M7 PT-IP Assessment and Plan Start: 02/27/24 11:13 Freq: NEEDED Status: Active Protocol: Document 03/03/24 11:33 TS (Rec: 03/03/24 11:42 TS [id number]) PT Summary Assessment and Plan Potential Rehabilitation Potential Fair Summary Impairments Strength,Balance,Bed Mobility, Transfers,Gait,Activity Tolerance Progress Towards Goals Slow Progress due to Pain,Slow Progress due to Medical Issues,Slow Progress due to Activity Tolerance Assessment Summary Praful is making slow progress with his mobility. He requires MaxA to stand with FWW x2 with max cues. He sidestepped along chair ~5' CGA with FWW, pt reports pain in L knee limiting his gait. PT at this time is recommending home 17/05 vs SNF. Expect pt to improve to go home but pt's toelerance for mobility is declining and may require rehab. Goals Bed Mobility Goal Independent Transfer Goal Independent Gait Goal Independent Gait Distance 100 Other Goals Pt will ascend and descend 5 steps with rail and mod I to allow safe home entry. Days to Meet Goals 10 Frequency of Treatment Frequency Of Treatment Once a Day Treatment Plan Physical Therapy Treatment Plan Bed Mobility Training,Transfer Training,Gait Training, Therapeutic Exercise,Balance Retraining,Discharge Planning, Hot or Cold Pack,Neuromuscular Re-ed,Coordination Retraining ,Manual Therapy Weight Bearing Status Weight Bearing Status Weight Bear as Tolerated Recommendations To Nursing Amount of Assist Needed Standby Assistance Discharge Recommendations PT Discharge Recommendations Home with 17/05 Assist Available,SNF Rehab,Home vs SNF Transportation Needs at Discharge Private Vehicle
--- NOTE | 2024-03-03 12:13 | CM.DPC ---
DCP Cont: Per MD, waiting for further imaging to see if pt's infection is improving or worsening as pt remains on oxygen and seems more fatigued. Per TRAY CHECKER, pt requiring more assist than previous days and home vs SNF pending pt's progress and some concern for his increased weakness/fatigue. SW met bedside with pt, sitting in bedside chair with oxymask and drowsy, and his spouse and explained role. Spouse and pt confirm preference is to avoid SNF if possible and even hesitant about HH. Spouse states that their plan is to discharge to their home [facility] before returning to their home on [address]. Both homes have multiple family members who live with or very near them and strong and able to assist whenever needed. Spouse states she also is quite strong herself and able to provide a good amount of assist to pt if needed. SW provided the SNF and HH Choice list to spouse to review and will see how pt progresses with PT closer to discharge. Spouse not yet agreeable to HH or SNF referral at this time but willing to consider either pending pt's needs. Plan: SW to follow closely for pt progress to determine if pt safe for d/c home with spouse and multiple family members to assist and r/o HH or SNF. Kellie Macdonald MSW
--- NOTE | 2024-03-03 13:17 | P.PN_ITS ---
Subjective Subjective Date Patient Seen: 03/03/24 Time Patient Seen: 13:17 Interval history: Patient seen in follow-up of pneumonia. Hypoxia. Acute respiratory failure. No other changes. Patient feeling maybe slightly better today hard for him to say. Did not have any other significant new changes. Oxygen status is slightly better down to 3 L by mask which he prefers and is fine at rest. No other changes. No chest pain. No orthopnea. No edema. Exam Vital Signs (past 8 hours): - 03/03/24 07:00 03/03/24 07:50 03/03/24 08:00 Temperature 97.1 F L Pulse Rate 98 H Respiratory Rate 16 Blood Pressure 144/76 H Pulse Oximetry 98 96 Oxygen Delivery Method Nasal Cannula Oximask Oxygen Flow Rate 2 2 03/03/24 12:00 Temperature 97.8 F Pulse Rate 97 H Respiratory Rate 18 Blood Pressure 148/85 H Pulse Oximetry 99 Oxygen Delivery Method Oxygen Flow Rate 2 Fraction of Inspired Oxygen 32 SaO2/FiO2 Ratio 306 Oxygen Delivery Method Oximask Oxygen Flow Rate 2 Narrative Exam Narrative: Alert elderly male lying in bed in no acute distress Mucous membranes moist. Neck supple without adenopathy JVD or bruits lungs with right crackles and rhonchi up to about mid lung field left shows some crackles at the base maybe some slight rhonchi but no other changes. No retractions. Heart is regular rate and rhythm extremities without edema Objective Labs 03/03/24 05:15 03/03/24 05:15 Labs: Laboratory Results - last 24 hr 03/03/24 05:15 WBC 2.0 L RBC 2.75 L Hgb 9.0 L Hct 26.6 L MCV 96.5 MCH 32.8 MCHC 34.0 RDW 17.6 H Plt Count 215 Neut % (Auto) 44.9 L Lymph % (Auto) 20.3 L [place] % (Auto) 24.3 H Eos % (Auto) 6.0 H Baso % (Auto) 4.5 H Neut # (Auto) 900 L Lymph # (Auto) 400 L [place] # (Auto) 500 Eos # (Auto) 100 Baso # (Auto) 100 Sodium 135 L Potassium 3.9 Chloride 103 Carbon Dioxide 35 H BUN 17 Creatinine 0.65 L Estimated GFR > 60 BUN/Creatinine Ratio 26.2 H Glucose 96 Calcium 8.0 L Total Bilirubin 0.5 AST 22 ALT 14 Alkaline Phosphatase 83 Total Protein 5.3 L Albumin 3.0 L Globulin 2.3 Albumin/Globulin Ratio 1.3 [facility] Medical History (Updated 02/27/24 @ 11:35 by Marie Parry MD) HFrEF (heart failure with reduced ejection fraction) Compression fracture Gout Multiple myeloma Hairy cell leukemia Surgical History No significant past surgical history Social History household members: spouse Smoking Status: Never smoker alcohol intake: never Assessment & Plan Assessment & Plan narrative: Acute hypoxic respiratory failure. Slowly improving. Chest x-ray shows basically the same with bilateral infiltrates. Maybe slightly worse. Wonder how much of this is impacted by his history of congestive heart failure. Will give Lasix today continue IV antibiotics hopefully things will be stable at least may need to go home with oxygen. Would like him feeling a little better but otherwise no change will see how he responds. Right lower lobe pneumonia. I wonder if this isn't worsened by congestive heart failure a little bit. We gave him Lasix today will see how he responds continue IV antibiotics tomorrow. Probably can switch to orals tomorrow and will see how he does. May have to go home on oxygen. This is probably his cause of his acute respiratory failure. He does understand. No other changes. Infectious disease cultures continued to be negative. Will need to continue broad therapy. Secondary to his pancytopenia. Pancytopenia. White count is improving. No other change. History of congestive heart failure. Wonder about possible overload due to the crackles in his lungs. Lasix was given today. Will see how that responds. Recheck a.m.. I am not going to give another dose tomorrow. DVT prophylaxis on Lovenox Code status full Disposition. Hoping maybe home Wednesday if things go well. Discussed with family. 55 minutes spent with the patient, nursing, orders dictation Quality VTE Deep Vein Thrombosis/Pulmonary Embolism Present on Admission: No
[2024-03-03] MEDS: CODEINE/GUAIFENESIN LIQUID 5ML UDC 5 ML PO ×2 (13:32→19:57)
[2024-03-03] MEDS: METOPROLOL ER 25 MG TABLET PO (19:57)
[2024-03-04] VITALS (9 sets, daily range): BP systolic 114–150; BP diastolic 65–71; PULSE 75–111; RESP 18–20; TEMP 36.3–36.8; O2SAT 96–98
[2024-03-04] MEDS: CEFEPIME 2 GM in SODIUM CHLORIDE 0.9% 100 ML IV ×3 (02:16→17:55)
[2024-03-04] MEDS: CODEINE/GUAIFENESIN LIQUID 5ML UDC 5 ML PO ×2 (02:21→17:55)
[2024-03-04 04:53] LABS: Add Manual Diff / Slide Review NO; Basophils Absolute Auto 100 /uL (0-100); Basophils Percent Auto 4.4 % (0-2); Eosinophils Absolute Auto 100 /uL (0-450); Eosinophils Percent Auto 5.1 % (2-4); Hematocrit 25.9 % (41-53); Hemoglobin 8.8 g/dL (13.5-17.5); Lymphocytes Absolute Auto 500 /uL (1100-4500); Lymphocytes Percent Auto 23.9 % (25-40); Mean Corpuscular HGB Conc 33.9 % (30-36); Mean Corpuscular Hemoglobin 32.7 PG (26-34); Mean Corpuscular Volume 96.6 fL (80-100); Monocytes Absolute Auto 600 /uL (0-900); Monocytes Percent Auto 26.6 % (3-14); Neutrophils Absolute Auto 900 /uL (1500-7000); Platelet Count 258 X10^3/uL (150-400); Red Blood Cell Count 2.69 X10^6/uL (4.5-5.9); Red Cell Distribution Width 17.6 % (11.6-14.8); White Blood Cell Count 2.2 X10^3/uL (4.5-11.0)
[2024-03-04 05:10] LABS: Alanine Aminotransferase 14 IU/L (<50); Albumin 2.9 g/dL (3.5-5.0); Albumin Globulin Ratio 1.2 (1.0-2.8); Alkaline Phosphatase 80 U/L (38-126); Aspartate Aminotransferase 21 IU/L (17-59); BUN Creatinine Ratio 33.3 (6-22); Bilirubin Total 0.5 mg/dL (0.2-1.3); Blood Urea Nitrogen 22 mg/dL (9-20); Carbon Dioxide 34 mmol/L (22-32); Chloride 102 mmol/L (98-107); Estimated Glomerular Filt Rate > 60 mL/min (>60); Globulin 2.4 g/dL (1.7-4.1); Glucose 101 mg/dL (80-110); HEMOLYSIS < 15 (0-50); Sodium 136 mmol/L (137-145); Total Protein 5.3 g/dL (6.3-8.2)
[2024-03-04] MEDS: valACYclovir 500 MG TABLET PO ×2 (08:16→20:45)
[2024-03-04] MEDS: SODIUM CHLORIDE 0.9% FLUSH 10 ML IV (08:16)
[2024-03-04] MEDS: guaiFENesin ER 600 MG TAB PO ×2 (08:16→20:45)
[2024-03-04] MEDS: ENOXAPARIN 40 MG/0.4 ML SYRINGE SUBCUT (08:16)
[2024-03-04] MEDS: ENTRESTO 12.5 EACH PO (08:38)
--- NOTE | 2024-03-04 09:33 | PM.PN.1 ---
Subjective Subjective Date Patient Seen: 03/04/24 Time Patient Seen: 09:34 Interval history: Patient's hospital course reviewed with Dr. Nance, last evening Slowly improving. Oxygen requirement going down. Was given a dose of IV diuretics yesterday in effort to improve his oxygenation. Had a vigorous output and indeed his oxygen requirement is little bit less today Was up with physical therapy still very limited in his abilities No new complaints or issues. Yesterday was kind of a not so good day feeling less energetic and weaker overall. This morning already been up to the bathroom feels stronger feels like he is doing better. Exam Vital Signs (past 8 hours): - 03/04/24 04:00 03/04/24 08:00 Temperature 98.0 F 97.6 F Pulse Rate 80 78 Respiratory Rate 19 18 Blood Pressure 140/67 150/70 H Pulse Oximetry 96 97 Oxygen Flow Rate 2 2 Fraction of Inspired Oxygen 32 SaO2/FiO2 Ratio 306 Oxygen Delivery Method Oximask Oxygen Flow Rate 2 Objective Labs 03/04/24 04:20 03/04/24 04:20 Labs: Laboratory Results - last 24 hr 03/04/24 04:20 WBC 2.2 L RBC 2.69 L Hgb 8.8 L Hct 25.9 L MCV 96.6 MCH 32.7 MCHC 33.9 RDW 17.6 H Plt Count 258 Neut % (Auto) 40.0 L Lymph % (Auto) 23.9 L [place] % (Auto) 26.6 H Eos % (Auto) 5.1 H Baso % (Auto) 4.4 H Neut # (Auto) 900 L Lymph # (Auto) 500 L [place] # (Auto) 600 Eos # (Auto) 100 Baso # (Auto) 100 Sodium 136 L Potassium 4.0 Chloride 102 Carbon Dioxide 34 H BUN 22 H Creatinine 0.66 Estimated GFR > 60 BUN/Creatinine Ratio 33.3 H Glucose 101 Calcium 8.0 L Total Bilirubin 0.5 AST 21 ALT 14 Alkaline Phosphatase 80 Total Protein 5.3 L Albumin 2.9 L Globulin 2.4 Albumin/Globulin Ratio 1.2 [facility] Medical History (Updated 02/27/24 @ 11:35 by Marie Parry MD) HFrEF (heart failure with reduced ejection fraction) Compression fracture Gout Multiple myeloma Hairy cell leukemia Surgical History No significant past surgical history Social History household members: spouse Smoking Status: Never smoker alcohol intake: never Assessment & Plan Assessment & Plan narrative: 1. Acute hypoxic respiratory failure-secondary to pneumonia and perhaps a little bit of acute on chronic congestive heart failure with reduced ejection fraction. Seems to be improving slowly but surely. Possibly benefited from the diuretics yesterday. 2. Pneumonia-given the very slow improvement and his slow physical ability I am inclined to continue with parental antibiotics today. Does continue to have a leukopenia although improving. This plus his slow improvement makes me believe he would benefit from continued parental antibiotics. This will be a day today decision process. Perhaps switch him to oral antibiotics tomorrow 3. Acute on chronic congestive heart failure with reduced ejection fraction-I think probably a dose of daily oral furosemide makes sense in this situation. I have ordered that this morning. Electrolytes are okay this morning plan to recheck in 48 hours 4. Pancytopenia-numbers seem to be slowly improving. I think we can discontinue daily CBC's and plan to recheck again in 48 hours. 5. Disposition-hopefully patient will improve enough to be able to go home with home health services which is the goal. Still probably a couple of days away from that in my opinion. Hopefully we can get him off the oxygen but that is not for sure either Quality VTE Deep Vein Thrombosis/Pulmonary Embolism Present on Admission: No [facility] Charge codes Subsequent inpatient/observation care: 25757
[2024-03-04] MEDS: FUROSEMIDE 40 MG TABLET PO (10:58)
[2024-03-04] MEDS: BENZONATATE 100 MG CAPSULE 200 MG PO (11:03)
--- NOTE | 2024-03-04 11:25 | PT.IPTN ---
Current Diagnoses Multiple myeloma not having achieved remission (02/26/24) Unspecified systolic (congestive) heart failure (02/26/24) Pneumonia, unspecified organism (02/26/24) Hypoxemia (02/26/24) Physical Therapy Treatment Note M2 PT-IP Current Condition Start: 02/27/24 11:13 Freq: NEEDED Status: Active Protocol: Document 02/28/24 10:33 MB (Rec: 02/28/24 11:00 MB [id number]) Physical Therapy Current Condition Current Condition Evaluation Date 02/28/24 Treatment Diagnosis PNA, COVID, parainfluenza virus M3 PT-IP Subjective Start: 02/27/24 11:13 Freq: NEEDED Status: Active Protocol: Document 03/04/24 11:52 TS (Rec: 03/04/24 12:01 TS [id number]) Subjective Physical Therapy Visit Type Type Treatment Note Visit Start Time 11:25 Visit Stop Time 11:50 Notes Spouse present Number of CURBER Visits 4 Physical Therapy Visit Comments Patient Comments Pt found resting in chair, reports feeling better this morning. Pt is agreeable to PT . M4 PT-IP Mobility and Gait Start: 02/27/24 11:13 Freq: NEEDED Status: Active Protocol: Document 03/04/24 11:52 TS (Rec: 03/04/24 12:01 TS [id number]) PT-Transfer Assessment Sit to and From Stand Sit to and from Stand Minimal Assistance,1 Person Assistance,Use of Upper Extremities Equipment Transfer Assistive Device Gait Belt,Front Wheeled Walker Orthotic/Prosthetic Devices or Brace: No Comments Mobility Comments Pt found resting on 2.5L's, Spo2 96%. STS from chair [place] x1 with FWW. pt takes 5 attempts with momentum to come into standing, pt motivated to try on own. He ambulated in room ~25'SBA with FWW. Pt ambulated with a slow step to gait and heavy handed on FWW. Pt stood at sink for ~1min to attmept shaving, declined and requested back to chair. Spo2 98% on 2.5L's after mobility. Pt was left in chair, all needs met. Gait Assessment Gait Gait Assistance Required: Standby Assistance Distance (Feet) 25 Able to Maintain Weight Bearing Status Yes During Gait Assistive Devices Assistive Device Gait Belt,Front Wheeled Walker Orthotic/Prosthetic Devices or Brace: No Gait Deviations General Gait Pattern Decreased Stride Length, Decreased Feet Clearance, Flexed Trunk,Step-to Gait,Wide Based Gait Factors Limiting Gait Function Factors Limiting Gait Function Decreased Activity Tolerance, Decreased Strength,Difficulty Following Directions, Incoordination,Poor Balance, Poor Safety Awareness PT-Balance Assessment Sitting Balance and Reactions Static Sitting Balance Ability Good Dynamic Sitting Balance Ability Good Standing Balance and Reactions Static Standing Balance Ability Fair Dynamic Standing Balance Ability Fair Device Used RW M5 PT-IP Objective Assessments Start: 02/27/24 11:13 Freq: NEEDED Status: Active Protocol: Document 02/28/24 10:33 MB (Rec: 02/28/24 11:00 MB [id number]) Orientation Orientation/Cognition Level of Alertness Alert Orientation Name,Birthday,Place,Situation Language Function Ability No Deficits Noted Safety Awareness Decreased Safety Awareness Memory Description No Deficits Noted Gross Range of Motion Upper Extremity ROM Assessment Within Functional Limits Lower Extremity ROM Assessment Within Functional Limits Strength Comments Strength Comments MMT deferred today and grossly functional with mobility M6 PT-IP Treatment Start: 02/27/24 11:13 Freq: NEEDED Status: Active Protocol: Document 03/04/24 11:52 TS (Rec: 03/04/24 12:01 [id number]) Physical Therapy Treatment Education Education Provided Safety M7 PT-IP Assessment and Plan Start: 02/27/24 11:13 Freq: NEEDED Status: Active Protocol: Document 03/04/24 11:52 TS (Rec: 03/04/24 12:01 TS [id number]) PT Summary Assessment and Plan Potential Rehabilitation Potential Fair Summary Impairments Strength,Balance,Bed Mobility, Transfers,Gait,Activity Tolerance Progress Towards Goals Slow Progress due to Pain,Slow Progress due to Medical Issues,Slow Progress due to Activity Tolerance Assessment Summary Praful is making some progress with his mobility this session but continues to be limited. He is [place] for STS from chair, pt attempted x5 to come into standing. He progressed his gait to ~25'SBA with FWW. He ambulates slow and with a step to gait, pt c/o pain in R hip . PT will continue to recommend Home 17/05 vs SNF at this time. Expect pt to improve and go home with assist from spouse. Pt remains well below baseline. Goals Bed Mobility Goal Independent Transfer Goal Independent Gait Goal Independent Gait Distance 100 Other Goals Pt will ascend and descend 5 steps with rail and mod I to allow safe home entry. Days to Meet Goals 10 Frequency of Treatment Frequency Of Treatment Once a Day Treatment Plan Physical Therapy Treatment Plan Bed Mobility Training,Transfer Training,Gait Training, Therapeutic Exercise,Balance Retraining,Discharge Planning, Hot or Cold Pack,Neuromuscular Re-ed,Coordination Retraining ,Manual Therapy Weight Bearing Status Weight Bearing Status Weight Bear as Tolerated Recommendations To Nursing Amount of Assist Needed 1 Person Assist Discharge Recommendations PT Discharge Recommendations Home with 17/05 Assist Available,SNF Rehab,Home vs SNF Transportation Needs at Discharge Private Vehicle,Wheelchair/ Cabulance
--- NOTE | 2024-03-04 15:10 | CM.DPNOTE ---
DCP Cont Met w/patient and spouse to review discharge plan. Spouse explains that she would like to take patient home to their [facility] home and have 8 children that can rotate and assist as needed. Patient can be in the one story house and they will be close to medical facilities if patient decompensates. Once back on [place], spouse feels they also have a very supportive community that can assist both patient and spouse as needed throughout patient's recovery. Discussed home health services; spouse is a retired EMT and unsure patient will require HH services. Spouse prefers to discuss HH again closer to patient's DC. Patient may also discharge with new home O2. Plan: Discharge home w/family is anticipated. Close outpatient follow up. R/o need for HH services closer to DC; need referral, F2F, HH order CM team following clinical course closely and will assist with discharge coordination as needed. ADAMS
[2024-03-04] MEDS: METOPROLOL ER 25 MG TABLET PO (20:45)
[2024-03-04] MEDS: ENTRESTO 12 EACH PO (20:45)
[2024-03-05] VITALS (10 sets, daily range): BP systolic 115–141; BP diastolic 62–70; PULSE 20–103; RESP 16–18; TEMP 36.3–36.9; O2SAT 94–98
[2024-03-05] MEDS: CEFEPIME 2 GM in SODIUM CHLORIDE 0.9% 100 ML IV (01:54)
[2024-03-05 04:21] LABS: Alanine Aminotransferase 15 IU/L (<50); Albumin Globulin Ratio 1.3 (1.0-2.8); Alkaline Phosphatase 80 U/L (38-126); Aspartate Aminotransferase 23 IU/L (17-59); BUN Creatinine Ratio 32.4 (6-22); Bilirubin Total 0.5 mg/dL (0.2-1.3); Blood Urea Nitrogen 23 mg/dL (9-20); Carbon Dioxide 36 mmol/L (22-32); Chloride 102 mmol/L (98-107); Estimated Glomerular Filt Rate > 60 mL/min (>60); Globulin 2.4 g/dL (1.7-4.1); Glucose 100 mg/dL (80-110); HEMOLYSIS < 15 (0-50); Potassium 4.1 mmol/L (3.4-5.1); Sodium 137 mmol/L (137-145); Total Protein 5.4 g/dL (6.3-8.2)
[2024-03-05 04:34] LABS: Add Manual Diff / Slide Review YES; Hemoglobin 8.7 g/dL (13.5-17.5); Mean Corpuscular HGB Conc 33.5 % (30-36); Mean Corpuscular Hemoglobin 32.5 PG (26-34); Mean Corpuscular Volume 96.9 fL (80-100); Platelet Count 335 X10^3/uL (150-400); Red Blood Cell Count 2.68 X10^6/uL (4.5-5.9); Red Cell Distribution Width 17.5 % (11.6-14.8); White Blood Cell Count 2.1 X10^3/uL (4.5-11.0)
[2024-03-05 04:58] LABS: Anisocytosis 1+; Neutrophils Absolute Manual 798 /uL (3000-5900); Total Cells Counted 100
[2024-03-05] MEDS: ENOXAPARIN 40 MG/0.4 ML SYRINGE SUBCUT (09:39)
[2024-03-05] MEDS: FUROSEMIDE 40 MG TABLET PO (09:40)
[2024-03-05] MEDS: SODIUM CHLORIDE 0.9% FLUSH 10 ML IV ×2 (09:40→20:29)
[2024-03-05] MEDS: ENTRESTO 12 EACH PO ×2 (09:40→20:28)
[2024-03-05] MEDS: CODEINE/GUAIFENESIN LIQUID 5ML UDC 5 ML PO (09:40)
[2024-03-05] MEDS: valACYclovir 500 MG TABLET PO ×2 (09:40→20:28)
--- NOTE | 2024-03-05 10:16 | PM.PN.1 ---
Subjective Subjective Date Patient Seen: 03/05/24 Time Patient Seen: 10:16 Interval history: Patient with a reasonably good day yesterday. Able to participate with physical therapy. Still quite weak with no stamina Feels like he is improving little bit by little bit however Oxygen requirement stable not able to come off oxygen as yet however Vital signs stable Lab work unremarkable CBC stable etcetera All cultures remain negative. Serology did document the 2 viral infections but no other obvious infection at this point Exam Vital Signs (past 8 hours): - 03/05/24 04:00 03/05/24 08:00 Temperature 97.6 F 97.5 F L Pulse Rate 84 94 H Respiratory Rate 18 18 Blood Pressure 139/70 141/62 H Pulse Oximetry 97 94 Oxygen Flow Rate 2 2 Fraction of Inspired Oxygen 32 SaO2/FiO2 Ratio 306 Oxygen Delivery Method Oximask Oxygen Flow Rate 2 Objective Labs 03/05/24 03:55 03/05/24 03:55 Labs: Laboratory Results - last 24 hr 03/05/24 03:55 WBC 2.1 L RBC 2.68 L Hgb 8.7 L Hct 26.0 L MCV 96.9 MCH 32.5 MCHC 33.5 RDW 17.5 H Plt Count 335 Neut % (Auto) Not Reportable Lymph % (Auto) Not Reportable [place] % (Auto) Not Reportable Eos % (Auto) Not Reportable Baso % (Auto) Not Reportable Lymph # (Auto) Not Reportable [place] # (Auto) Not Reportable Baso # (Auto) Not Reportable Total Counted 100 Seg Neutrophils % 38.0 Lymphocytes % (Manual) 26.0 Monocytes % (Manual) 27.0 H Eosinophils % (Manual) 4.0 Basophils % (Manual) 5.0 H Neutrophils # (Manual) 798 L RBC Morphology See below Anisocytosis 1+ H Sodium 137 Potassium 4.1 Chloride 102 Carbon Dioxide 36 H BUN 23 H Creatinine 0.71 Estimated GFR > 60 BUN/Creatinine Ratio 32.4 H Glucose 100 Calcium 8.0 L Total Bilirubin 0.5 AST 23 ALT 15 Alkaline Phosphatase 80 Total Protein 5.4 L Albumin 3.0 L Globulin 2.4 Albumin/Globulin Ratio 1.3 PFSH Medical History (Updated 02/27/24 @ 11:35 by Marie Parry MD) HFrEF (heart failure with reduced ejection fraction) Compression fracture Gout Multiple myeloma Hairy cell leukemia Surgical History No significant past surgical history Social History household members: spouse Smoking Status: Never smoker alcohol intake: never Assessment & Plan Assessment & Plan narrative: 1. Acute hypoxic respiratory failure-secondary to pneumonia and perhaps a little bit of acute on chronic congestive heart failure with reduced ejection fraction. Seems to be improving slowly but surely. Continue with low-dose diuresis as noted yesterday 2. Pneumonia-patient seems stable over the last couple of days. Cultures are all negative. I am okay to discontinue IV antibiotics. He has been taking Levaquin as prophylactic antibiotic through Oncology he has been on a fourth generation cephalosporin parenterally. I am going to switch him to a higher dose oral Levaquin for now and he will likely need to go back to his regular dose Levaquin at some point as prophylaxis. At this point there is no evidence of active bacterial infection, we did clearly document viral infection, and perhaps that in the background of his leukemia and multiple myeloma are the source of his generalized weakness and respiratory symptoms. 3. Acute on chronic congestive heart failure with reduced ejection fraction-continue with oral furosemide. Plan repeat electrolytes and renal function with BNP tomorrow 4. Pancytopenia-numbers seem to be slowly improving. Planning to recheck tomorrow. 5. Disposition-hopefully patient will improve enough to be able to go home with home health services which is the goal. Still probably a couple of days away from that in my opinion. Hopefully we can get him off the oxygen but that is not for sure either Quality VTE Deep Vein Thrombosis/Pulmonary Embolism Present on Admission: No [facility] PROFEE Charge codes Subsequent inpatient/observation care: [id number]
[2024-03-05] MEDS: levoFLOXacin 250 MG TABLET 750 MG PO (10:49)
--- NOTE | 2024-03-05 11:16 | PT.IPTN ---
Current Diagnoses Multiple myeloma not having achieved remission (02/26/24) Unspecified systolic (congestive) heart failure (02/26/24) Pneumonia, unspecified organism (02/26/24) Hypoxemia (02/26/24) Physical Therapy Treatment Note M2 PT-IP Current Condition Start: 02/27/24 11:13 Freq: NEEDED Status: Active Protocol: Document 02/28/24 10:33 MB (Rec: 02/28/24 11:00 MB [id number]) Physical Therapy Current Condition Current Condition Evaluation Date 02/28/24 Treatment Diagnosis PNA, COVID, parainfluenza virus M3 PT-IP Subjective Start: 02/27/24 11:13 Freq: NEEDED Status: Active Protocol: Document 03/05/24 10:52 KS (Rec: 03/05/24 11:45 KS [id number]) Subjective Physical Therapy Visit Type Type Treatment Note Visit Start Time 10:52 Visit Stop Time 11:16 Notes Spouse present Number of STONE SANDBLASTER Visits 5 Physical Therapy Visit Comments Patient Comments Pt found resting in chair. Pt is agreeable to PT. M4 PT-IP Mobility and Gait Start: 02/27/24 11:13 Freq: NEEDED Status: Active Protocol: Document 03/05/24 10:52 KS (Rec: 03/05/24 11:45 KS [id number]) PT-Transfer Assessment Sit to and From Stand Sit to and from Stand Maximum Assistance,1 Person Assistance,Use of Upper Extremities Equipment Transfer Assistive Device Gait Belt,Front Wheeled Walker Orthotic/Prosthetic Devices or Brace: No Transfers Transfer Destination Chair Transfer Technique ambulated Transfer Ability Level of Assist Moderate Assistance,Maximum Assistance,1 Person Assistance ,Use of Upper Extremities Comments Mobility Comments Pt in chair upon arrival, agreeable to ambulate. On 2.5L O2, mid 90s with brief decreases throughout treatment . Required Max A for sit<> stand from low chair w/ FWW. Pt ambulated 65 ft today using FWW and CGA. Reports ambulation is getting easier, denied SOB throughout. Returned to chair and left w/ all needs in reach. Gait Assessment Gait Gait Assistance Required: Contact Guard Assist,1 Person Assist Distance (Feet) 65 Able to Maintain Weight Bearing Status Yes During Gait Assistive Devices Assistive Device Gait Belt,Front Wheeled Walker Orthotic/Prosthetic Devices or Brace: No Gait Deviations General Gait Pattern Decreased Stride Length, Decreased Feet Clearance, Flexed Trunk,Step-to Gait,Wide Based Gait Factors Limiting Gait Function Factors Limiting Gait Function Decreased Activity Tolerance, Decreased Strength,Difficulty Following Directions, Incoordination,Poor Balance, Poor Safety Awareness Comments Gait Comments See mobility. PT-Balance Assessment Sitting Balance and Reactions Static Sitting Balance Ability Good Dynamic Sitting Balance Ability Good Standing Balance and Reactions Static Standing Balance Ability Fair Dynamic Standing Balance Ability Fair Device Used RW M5 PT-IP Objective Assessments Start: 02/27/24 11:13 Freq: NEEDED Status: Active Protocol: Document 02/28/24 10:33 MB (Rec: 02/28/24 11:00 MB [id number]) Orientation Orientation/Cognition Level of Alertness Alert Orientation Name,Birthday,Place,Situation Language Function Ability No Deficits Noted Safety Awareness Decreased Safety Awareness Memory Description No Deficits Noted Gross Range of Motion Upper Extremity ROM Assessment Within Functional Limits Lower Extremity ROM Assessment Within Functional Limits Strength Comments Strength Comments MMT deferred today and grossly functional with mobility M6 PT-IP Treatment Start: 02/27/24 11:13 Freq: NEEDED Status: Active Protocol: Document 03/05/24 10:52 KS (Rec: 03/05/24 11:45 KS [id number]) Physical Therapy Treatment Education Education Provided Safety M7 PT-IP Assessment and Plan Start: 02/27/24 11:13 Freq: NEEDED Status: Active Protocol: Document 03/05/24 10:52 KS (Rec: 03/05/24 11:45 KS [id number]) PT Summary Assessment and Plan Potential Rehabilitation Potential Fair Summary Impairments Strength,Balance,Bed Mobility, Transfers,Gait,Activity Tolerance Progress Towards Goals Slow Progress due to Medical Issues,Slow Progress due to Activity Tolerance Assessment Summary Pt able to progress gait to 65 ft using FWW today, however did still require Max A for sit<>stand from chair. Limited by weakness and low activity tolerance but demonstrates good effort. Reports he has a lift chair at home. PT will continue to recommend Home vs SNF at this time. Expect pt to improve and go home with assist from spouse. Pt remains well below baseline. Goals Bed Mobility Goal Independent Transfer Goal Independent Gait Goal Independent Gait Distance 100 Other Goals Pt will ascend and descend 5 steps with rail and mod I to allow safe home entry. Days to Meet Goals 10 Frequency of Treatment Frequency Of Treatment Once a Day Treatment Plan Physical Therapy Treatment Plan Bed Mobility Training,Transfer Training,Gait Training, Therapeutic Exercise,Balance Retraining,Discharge Planning, Hot or Cold Pack,Neuromuscular Re-ed,Coordination Retraining ,Manual Therapy Weight Bearing Status Weight Bearing Status Weight Bear as Tolerated Recommendations To Nursing Amount of Assist Needed 1 Person Assist Discharge Recommendations PT Discharge Recommendations Home with 17/05 Assist Available,SNF Rehab,Home vs SNF Transportation Needs at Discharge Private Vehicle,Wheelchair/ Cabulance
--- NOTE | 2024-03-05 15:40 | CM.DPNOTE ---
DCP note HOG KILLER reviewed EMR. Per RN report, pt doing well today. on PO meds, down to 1ltr O2. could potentially dc tomorrow vs another few days. Per Kiki MURPHY, pt could still be another few days away from dc, remains hopeful of getting pt off oxygen vs pt needing to dc home with home O2. Per PT, continue to rec home with HH and 24/7 care vs SNF. Per previous CM notes, family preference remains home to [facility] with adult children support. Per previous CM notes, pt spouse preferred to discuss HH services closer to [place]. Plan: discharge home with family when medically stable anticipated. f/u about HH services, referral, F2f, and order needed. CM team will continue to follow closely for DCP coordination as needed. DORITA Berry
[2024-03-05] MEDS: METOPROLOL ER 25 MG TABLET PO (20:28)
[2024-03-06] VITALS (9 sets, daily range): BP systolic 116–135; BP diastolic 60–72; PULSE 75–96; RESP 16–28; TEMP 36.1–36.8; O2SAT 92–100
[2024-03-06] MEDS: levoFLOXacin 250 MG TABLET 750 MG PO (06:05)
[2024-03-06 06:16] LABS: Hematocrit 25.7 % (41-53); Hemoglobin 8.8 g/dL (13.5-17.5); Mean Corpuscular HGB Conc 34.4 % (30-36); Mean Corpuscular Hemoglobin 33.2 PG (26-34); Mean Corpuscular Volume 96.4 fL (80-100); Platelet Count 382 X10^3/uL (150-400); Red Blood Cell Count 2.67 X10^6/uL (4.5-5.9); Red Cell Distribution Width 16.9 % (11.6-14.8)
[2024-03-06 06:19] LABS: Add Manual Diff / Slide Review YES
[2024-03-06 06:20] LABS: White Blood Cell Count 1.7 X10^3/uL (4.5-11.0)
[2024-03-06 06:28] LABS: BUN Creatinine Ratio 27.4 (6-22); Blood Urea Nitrogen 20 mg/dL (9-20); Calcium 8.2 mg/dL (8.4-10.2); Carbon Dioxide 39 mmol/L (22-32); Chloride 99 mmol/L (98-107); Estimated Glomerular Filt Rate > 60 mL/min (>60); Glucose 96 mg/dL (80-110); HEMOLYSIS < 15 (0-50); Potassium 3.9 mmol/L (3.4-5.1); Sodium 136 mmol/L (137-145)
[2024-03-06 06:39] LABS: Neutrophils Absolute Manual 697 /uL (3000-5900); Total Cells Counted 100
[2024-03-06 06:40] LABS: Anisocytosis 1+
--- NOTE | 2024-03-06 08:28 | PM.PN.1 ---
Subjective Subjective Date Patient Seen: 03/06/24 Time Patient Seen: 08:28 Interval history: Patient seen in follow-up of respiratory failure and pneumonia. Patient overall is doing better. Still short of breath still having some issues with ambulation. No other changes. Strength is poor. But improving. He feels better today. There has been no other change or complaint. No new changes Exam Vital Signs (past 8 hours): - 03/06/24 05:26 03/06/24 07:09 03/06/24 08:00 Temperature 97.2 F L 97.1 F L Pulse Rate 75 83 75 Respiratory Rate 17 16 Blood Pressure 127/72 131/63 Pulse Oximetry 100 99 99 Oxygen Delivery Method Oximask Oxygen Flow Rate 2 4 4 Fraction of Inspired Oxygen 32 SaO2/FiO2 Ratio 306 Oxygen Delivery Method Oximask Oxygen Flow Rate 4 Narrative Exam Narrative: Alert male less fatigued no acute respiratory distress Mucous membranes moist lungs with basically left basilar crackles occasional rales otherwise clear. Heart is regular rate and rhythm extremities normal neurologic exam unremarkable Objective Labs 03/06/24 05:15 03/06/24 05:15 Labs: Laboratory Results - last 24 hr 03/06/24 05:15 WBC 1.7 L* RBC 2.67 L Hgb 8.8 L Hct 25.7 L MCV 96.4 MCH 33.2 MCHC 34.4 RDW 16.9 H Plt Count 382 Neut % (Auto) Not Reportable Lymph % (Auto) Not Reportable [place] % (Auto) Not Reportable Eos % (Auto) Not Reportable Baso % (Auto) Not Reportable Lymph # (Auto) Not Reportable [place] # (Auto) Not Reportable Baso # (Auto) Not Reportable Total Counted 100 Seg Neutrophils % 39.0 Band Neutrophils % 2.0 L Lymphocytes % (Manual) 32.0 Atypical Lymphs % 1.0 H Monocytes % (Manual) 19.0 H Eosinophils % (Manual) 2.0 Basophils % (Manual) 5.0 H Neutrophils # (Manual) 697 L RBC Morphology See below Anisocytosis 1+ H Sodium 136 L Potassium 3.9 Chloride 99 Carbon Dioxide 39 H BUN 20 Creatinine 0.73 Estimated GFR > 60 BUN/Creatinine Ratio 27.4 H Glucose 96 Calcium 8.2 L PFSH Medical History (Updated 02/27/24 @ 11:35 by Marie Parry MD) HFrEF (heart failure with reduced ejection fraction) Compression fracture Gout Multiple myeloma Hairy cell leukemia Surgical History No significant past surgical history Social History household members: spouse Smoking Status: Never smoker alcohol intake: never Assessment & Plan Assessment & Plan narrative: Acute hypoxic respiratory failure secondary to pneumonia. Maybe some mild congestive health failure. Continuing to improve slowly. We will set up home O2 and continue diuresis with antibiotics and hope maybe discharge tomorrow. Pneumonia. Actually seems to be doing well on orals. No cultures are positive. Patient is overall stable. He is on Levaquin which seems to be good. Seems to be covered feels like he is getting better and at this point will continue current meds. Acute on chronic heart failure. Continue oral furosemide Pancytopenia. Stable Weakness. Overall doing well. Slowly improving. I think he will be able to go home in the next 2 days does not need sniff will set up home health and follow from there. Full code DVT prophylaxis on treatment Quality VTE Deep Vein Thrombosis/Pulmonary Embolism Present on Admission: No
[2024-03-06] MEDS: valACYclovir 500 MG TABLET PO ×2 (09:58→20:30)
[2024-03-06] MEDS: ENTRESTO 12 EACH PO ×2 (09:58→20:30)
[2024-03-06] MEDS: ENOXAPARIN 40 MG/0.4 ML SYRINGE SUBCUT (09:58)
[2024-03-06] MEDS: FUROSEMIDE 40 MG TABLET PO (09:58)
[2024-03-06] MEDS: SODIUM CHLORIDE 0.9% FLUSH 10 ML IV ×2 (09:59→21:00)
--- NOTE | 2024-03-06 10:52 | PC.NURSE ---
Patient was on room air for trial by RT but he went down to the mid 80s on RA. Mask changed to Nasal cannula and patient is on lL and satting 97%. He is back to bed and just voided 100cc of yellow urine in the urinal. is in room and staying with patient.
[2024-03-06] MEDS: CODEINE/GUAIFENESIN LIQUID 5ML UDC 5 ML PO ×2 (11:30→20:30)
[2024-03-06] MEDS: BENZONATATE 100 MG CAPSULE 200 MG PO (11:30)
--- NOTE | 2024-03-06 11:40 | CM.DPNOTE ---
Addendum entered by DORITA Berry 03/06/24 14:50: Per RN, pt to stay another night. Per Sandy from [facility] , if pt dc's tomorrow earliest SOC could be Wednesday. AUTOMOTIVE EXHAUST EMISSIONS TECHNICIAN updated pt/spouse on acceptance and potential SOC. Appreciate the update. SL Addendum entered by DORITA Berry 03/06/24 12:45: Sandy from [facility] reports they are able to accept pt for services. MCA Original Note: DCP Note AUTOMOTIVE EXHAUST EMISSIONS TECHNICIAN reviewed EMR. Per provider note, potential dc later this afternoon vs tomorrow morning. AUTOMOTIVE EXHAUST EMISSIONS TECHNICIAN met with pt and spouse in room. Spouse Yuly ( [phone]) and pt agreeable to HH. AUTOMOTIVE EXHAUST EMISSIONS TECHNICIAN answered questions to best of ability about HH. AUTOMOTIVE EXHAUST EMISSIONS TECHNICIAN reviewed options for HH agencies. Preference is [facility] at this time unless SOC is far out. Open to RN/OT/PT, may be interested in [employer] PRO[employer]MER later. Deny other CM needs at this time. Confirm going to stay in [place] ([address] [facility]) at discharge. AUTOMOTIVE EXHA[employer] EMISSIONS TECHNICIAN spoke with Sandy at [facility] . Agreed to review, no red flags for acceptance. GERTRUDIS Ji agreed to email Sandy initial referral information. Order already complete, F2f complete. P: home afternoon vs tomorrow morning with potential for [facility] to follow, pending acceptance, and spouse/adult children at home. CM team will continue to follow as needed. DORITA Berry
--- NOTE | 2024-03-06 12:59 | PT.IPTN ---
Current Diagnoses Multiple myeloma not having achieved remission (02/26/24) Unspecified systolic (congestive) heart failure (02/26/24) Pneumonia, unspecified organism (02/26/24) Hypoxemia (02/26/24) Physical Therapy Treatment Note M2 PT-IP Current Condition Start: 02/27/24 11:13 Freq: NEEDED Status: Active Protocol: Document 02/28/24 10:33 MB (Rec: 02/28/24 11:00 MB [id number]) Physical Therapy Current Condition Current Condition Evaluation Date 02/28/24 Treatment Diagnosis PNA, COVID, parainfluenza virus M3 PT-IP Subjective Start: 02/27/24 11:13 Freq: NEEDED Status: Active Protocol: Document 03/06/24 12:32 MB (Rec: 03/06/24 12:59 MB [id number]) Subjective Physical Therapy Visit Type Type Treatment Note Visit Start Time 12:32 Visit Stop Time 12:55 Number of X RAY ELECTRON[employer] WIRING TECHNICIAN Visits 0 Physical Therapy Visit Comments Patient Comments Pt hook lying in bed upon arrival. Pt with coughing often. M4 PT-IP Mobility and Gait Start: 02/27/24 11:13 Freq: NEEDED Status: Active Protocol: Document 03/06/24 12:32 MB (Rec: 03/06/24 12:59 MB [id number]) PT-Bed Mobility Assessment Supine to Sit Supine to Sit Contact Guard Assistance,1 Person Assistance,Head of Bed Elevated,Bedrails Sit to Supine Sit to Supine Contact Guard Assistance,1 Person Assistance,Head of Bed Elevated,Bedrails Scooting Scooting to Edge of Bed Contact Guard Assistance Scooting Up and Down in Bed Contact Guard Assistance PT-Transfer Assessment Sit to and From Stand Sit to and from Stand Contact Guard Assistance,1 Person Assistance,Use of Upper Extremities Equipment Transfer Assistive Device Gait Belt,Front Wheeled Walker Orthotic/Prosthetic Devices or Brace: No Transfers Transfer Destination Bed Transfer Technique Ambulated Transfer Ability Level of Assist Contact Guard Assistance,1 Person Assistance,Use of Upper Extremities Comments Mobility Comments STS from raised bed. PT asks pt to don socks and this requires increased time and pt performs in hook lying. Pt on 2.5L O2 and his O2 sats are in the mid 90s at rest and drop as low as 87% with mobility. HR is also tachy at rest and with mobility: 108- 127 BPM. Gait Assessment Gait Gait Assistance Required: Contact Guard Assist,1 Person Assist Distance (Feet) 5 Able to Maintain Weight Bearing Status Yes During Gait Assistive Devices Assistive Device Gait Belt,Front Wheeled Walker Orthotic/Prosthetic Devices or Brace: No Gait Deviations General Gait Pattern Decreased Stride Length, Decreased Feet Clearance, Flexed Trunk,Step-to Gait,Wide Based Gait Factors Limiting Gait Function Factors Limiting Gait Function Decreased Activity Tolerance, Decreased Strength,Difficulty Following Directions, Incoordination,Poor Balance, Poor Safety Awareness Comments Gait Comments Forward and backward stepping x5, 5' each set and PT monitoring vitals PT-Balance Assessment Sitting Balance and Reactions Static Sitting Balance Ability Good Dynamic Sitting Balance Ability Good Standing Balance and Reactions Static Standing Balance Ability Fair Dynamic Standing Balance Ability Fair Device Used RW M5 PT-IP Objective Assessments Start: 02/27/24 11:13 Freq: NEEDED Status: Active Protocol: Document 02/28/24 10:33 MB (Rec: 02/28/24 11:00 MB [id number]) Orientation Orientation/Cognition Level of Alertness Alert Orientation Name,Birthday,Place,Situation Language Function Ability No Deficits Noted Safety Awareness Decreased Safety Awareness Memory Description No Deficits Noted Gross Range of Motion Upper Extremity ROM Assessment Within Functional Limits Lower Extremity ROM Assessment Within Functional Limits Strength Comments Strength Comments MMT deferred today and grossly functional with mobility M6 PT-IP Treatment Start: 02/27/24 11:13 Freq: NEEDED Status: Active Protocol: Document 03/06/24 12:32 MB (Rec: 03/06/24 12:59 MB [id number]) Physical Therapy Treatment Education Education Provided Safety Other Treatments Other Treatment Performed Ed in nasal breathing as able to improve saturation and HR M7 PT-IP Assessment and Plan Start: 02/27/24 11:13 Freq: NEEDED Status: Active Protocol: Document 03/06/24 12:32 MB (Rec: 03/06/24 12:59 MB [id number]) PT Summary Assessment and Plan Potential Rehabilitation Potential Fair Summary Impairments Strength,Balance,Bed Mobility, Transfers,Gait,Activity Tolerance Progress Towards Goals Slow Progress due to Medical Issues,Slow Progress due to Activity Tolerance Assessment Summary Pt con't with dropping O2 sats and increasing HR with activity, short gait tolerated today. Goals Bed Mobility Goal Independent Transfer Goal Independent Gait Goal Independent Gait Distance 100 Other Goals Pt will ascend and descend 5 steps with rail and mod I to allow safe home entry. Days to Meet Goals 5 Frequency of Treatment Frequency Of Treatment Once a Day Treatment Plan Physical Therapy Treatment Plan Bed Mobility Training,Transfer Training,Gait Training, Therapeutic Exercise,Balance Retraining,Discharge Planning, Hot or Cold Pack,Neuromuscular Re-ed,Coordination Retraining ,Manual Therapy Weight Bearing Status Weight Bearing Status Weight Bear as Tolerated Recommendations To Nursing Amount of Assist Needed 1 Person Assist Discharge Recommendations PT Discharge Recommendations Home with 17/05 Assist Available,SNF Rehab,Home vs SNF Transportation Needs at Discharge Private Vehicle,Wheelchair/ Cabulance
[2024-03-06] MEDS: METOPROLOL ER 25 MG TABLET PO (20:28)
[2024-03-07] VITALS: BP 122/65; PULSE 93; RESP 19; TEMP 36.3; O2SAT 97
[2024-03-07 04:45] VITALS: BP 121/67; PULSE 78; RESP 18; TEMP 36.4; O2SAT 98
[2024-03-07 05:28] LABS: Add Manual Diff / Slide Review NO; Basophils Absolute Auto 100 /uL (0-100); Basophils Percent Auto 4.5 % (0-2); Eosinophils Absolute Auto 100 /uL (0-450); Eosinophils Percent Auto 2.9 % (2-4); Hematocrit 26.5 % (41-53); Hemoglobin 9.1 g/dL (13.5-17.5); Lymphocytes Absolute Auto 800 /uL (1100-4500); Lymphocytes Percent Auto 38.6 % (25-40); Mean Corpuscular HGB Conc 34.4 % (30-36); Mean Corpuscular Hemoglobin 32.7 PG (26-34); Mean Corpuscular Volume 95.1 fL (80-100); Monocytes Absolute Auto 500 /uL (0-900); Monocytes Percent Auto 25.2 % (3-14); Neutrophils Absolute Auto 600 /uL (1500-7000); Neutrophils Percent Auto 28.8 % (50-75); Platelet Count 429 X10^3/uL (150-400); Red Blood Cell Count 2.79 X10^6/uL (4.5-5.9); Red Cell Distribution Width 17.1 % (11.6-14.8)
[2024-03-07] MEDS: levoFLOXacin 250 MG TABLET 750 MG PO (06:12)
[2024-03-07] MEDS: CODEINE/GUAIFENESIN LIQUID 5ML UDC 5 ML PO (06:15)
--- NOTE | 2024-03-07 06:26 | PC.NURSE ---
electronic wirer: Patient is AxOx4, VSS. O2 saturation >92% w/ 1-2L NC while awake & 3L oximask while asleep. Patient expresses that he is feeling better. Denies pain. Cough has improved, medicated as ordered w/ good effect. Using IS while awake. Family at bedside. Oriented to call-light. Plan of care ongoing.
--- NOTE | 2024-03-07 07:45 | PC.NURSE ---
Addendum entered by Nelli Elizabeth R.N. 03/07/24 11:23: Patient just discharged and home oxygen ordered, rt set this all up for patient. Out to car with piece dyeing machine tender. Original Note: Patient will most likely be discharging home today. He will be going home on oxygen. Resting comfortably now.
[2024-03-07 07:49] VITALS: PULSE 75; O2SAT 98
[2024-03-07 08:00] VITALS: BP 129/70; PULSE 90; RESP 22; TEMP 36.1; O2SAT 93
--- NOTE | 2024-03-07 08:06 | P.DS_ITS ---
History of Present Illness History of Present Illness Date Patient Seen: 03/07/24 Time Patient Seen: 08:07 Date of Onset of Symptoms: 02/25/24 Chief complaint: uncontrollable cough Narrative: 73-year-old male with history of HFrEF and multiple myeloma currently undergoing chemotherapy treatment who presented to the ER for about 1 week of worsening cough and recent development of fevers. Highest fever at home was 100.8 measured orally yesterday. Cough is productive of sputum and started approximately 3 days ago. On arrival to the ER he was found to be hypoxic into the 80s. At baseline he does not have an oxygen requirement. This improved when he was placed on supplemental oxygen of up to 15 L but then decreased down to 8-10 L. He has no tobacco use history. On arrival he was also found to be tachycardic and febrile to 101.3. Labs were noteworthy for WBC count of 2.1, platelets of 127. No neutropenia, % neutrophils of 72.2. No clinically relevant electrolyte derangements noted on CMP, normal creatinine and GFR, normal LFTs, negative troponin, normal lactate, normal procalcitonin. Respiratory pathogen panel positive for coronavirus HKU1 and parainfluenza virus 3. Chest x-ray showed left perihilar and lower lobe infiltrates consistent with pneumonia. EKG showed sinus tachycardia and was otherwise normal. Blood cultures were obtained and are pending. In the ER he was given ceftriaxone and azithromycin at approximately 8:40 in the evening. This morning, his notes that he has been feeling slightly better. She comments that yesterday he did not seem like himself and this morning he is closer to his normal self although still very tired. He has been frequently very tired since the diagnosis of multiple myeloma. For management he is undergoing once weekly chemotherapy on Wednesdays and 1 dose of dexamethasone on Sundays. His primary oncologist is Dr. Willett at [facility]. He is currently on prophylactic dose of levofloxacin once daily and valacyclovir 500 mg twice daily. Discharge Providers Provider Date of admission: 02/26/24 20:54 Discharge Date: 03/07/24 Primary care physician: Isaias Nance MD Consults: 02/26/24 20:54 Consult to Physician Stat Comment: Consulting Provider: Marie Parry Reason for consultation: admission Has provider been notified: Yes Consult to Physician Stat Comment: Consulting Provider: Isaias Nance Reason for consultation: Admission Has provider been notified: No 02/27/24 10:26 Consult to Occupational Therapy Evaluate & Treat Comment: Physician Instructions: Evaluate and treat Consult to Physical Therapy Evaluate & Treat Comment: Physician Instructions: Evaluate and Treat 03/06/24 08:33 Consult to Home Health Routine Comment: Reason For Exam: weakness and pneumonia Discharge provider: Isaias Nance MD Summary Hospital Course Discharge Diagnosis: Acute hypoxic respiratory failure Pneumonia right lower lobe Acute on chronic heart failure Pancytopenia Weakness diffuse Multiple myeloma Hospital Course: Acute hypoxic respiratory failure. Patient was admitted previous no issues with breathing. Was found to be moderately hypoxic. And relatively sick. Patient had pneumonia on x-ray and was positive for to respiratory viruses. Started on aggressive broad-spectrum antibiotics. Patient continued to slowly improve. Was initially on high flow heated mask 40% O2 requirement and waxed and waned over the course of the next several days. With slow improvement. At points he is completely without requirement for oxygen when he is sitting but always requires oxygen when moving. Baseline this morning was 2-3 L. patient is slowly improving. Lungs seem to be improving as far as clinical exam and this all secondary to his infection. Slow clearance probably secondary to his immune dysfunction secondary to multiple myeloma. Patient will need to go home on oxygen. Hopefully over the next 2 weeks he will wean off that and be done but will have to follow. If not will need further evaluation. Pneumonia right lower lobe. Patient was admitted and placed on high-dose antibiotics. Broad-spectrum. Patient had slow improvement. X-ray really was slightly worse on day 4 without other changes. But he is slowly continue to improve. It was felt the response was slow secondary to immune dysfunction. Cultures were negative. It was also probably not help that he had to respiratory viral infections positive at the same time. This probably was more of the diffuse infection as opposed of the right lower lobe infection he was switched to Levaquin 2 days prior to discharge high dose and actually was feeling really pretty good on day of discharge. [place] like he had turned a corner for the 1st time. No other changes. He will be on antibiotics for 10 full days given his immune issue will follow-up 1 week. Acute on chronic heart failure. Patient with slow recovery of his lung function the question is whether or not we would overloaded fluid vu. We started Lasix on the 5th day of admission and he felt as if maybe that was an improvement we did not see a large improvement and there was no need for an echo. He did not seem to be holding on a lot of fluid and will be discontinued on discharge. Was not felt to be a significant part of his admission. Pancytopenia. Overall stable throughout the course. His white count moved between 1.7 and 2 did not seem to really change. Was not really responsive to antibiotics. But did not drop into concerning levels further. Patient otherwise seems to be stable. Will be followed as an outpatient with his oncologist. Weakness. Patient was extremely weak throughout the course of his admission. It was generalized. [place] to be secondary not to any neurologic issue. [place] to be secondary to his illness. Slowly getting better. Still needs quite a bit of help. But able to get up and ambulate at least basic function. Does have help at home. No stairs with the bed in his office. feels like she can make things work. Home health is going to be coming and will see how things go. Will follow-up in 1 week Multiple myeloma. Patient had his dexamethasone discontinued on admission per his oncologist. Otherwise he will be followed by his oncologist was no other issue Greater than 35 minutes spent on discharge Exam Vital Signs (past 8 hours): - 03/07/24 04:45 Temperature 97.6 F Pulse Rate 78 Respiratory Rate 18 Blood Pressure 121/67 Pulse Oximetry 98 Oxygen Flow Rate 2 Fraction of Inspired Oxygen 32 SaO2/FiO2 Ratio 306 Oxygen Delivery Method Nasal Cannula,Oximask Oxygen Flow Rate 2 Narrative Exam Narrative: Alert male much less fatigued lying in bed with O2 mask on. Mucous membranes moist. Neck supple without adenopathy lungs still with bibasilar crackles some rhonchi worse on the right. To the mid lung arndt. Slight wheeze on the anterior surface right but good air exchange no retractions breathing comfortably. Heart is regular rate and rhythm abdomen is soft positive bowel sounds nontender extremities without cyanosis clubbing edema. Objective Labs 03/07/24 04:50 03/06/24 05:15 Labs: Laboratory Results - last 24 hr 03/07/24 04:50 WBC 2.0 L RBC 2.79 L Hgb 9.1 L Hct 26.5 L MCV 95.1 MCH 32.7 MCHC 34.4 RDW 17.1 H Plt Count 429 H Neut % (Auto) 28.8 L Lymph % (Auto) 38.6 Carson % (Auto) 25.2 H Eos % (Auto) 2.9 Baso % (Auto) 4.5 H Neut # (Auto) 600 L Lymph # (Auto) 800 L Carson # (Auto) 500 Eos # (Auto) 100 Baso # (Auto) 100 PFSH Medical History (Updated 02/27/24 @ 11:35 by Marie Parry MD) HFrEF (heart failure with reduced ejection fraction) Compression fracture Gout Multiple myeloma Hairy cell leukemia Surgical History No significant past surgical history Social History household members: spouse Smoking Status: Never smoker alcohol intake: never Discharge Assessment & Plan Assessment and Plan Assessment: Improved but not resolved Plan of Treatment: Discharge home Discharge Plan Discharge Plan Patient Disposition: Home Discharge orders & Medications Prescriptions: New levofloxacin 250 mg Tablet 750 mg PO 0700 Qty: 10 0RF Continued dexamethasone 4 mg tablet See Rx Instructions .ROUTE .COMPLEX Rx Instructions: 20 mg orally ;wed and (sat or sun) due next on wednesday metoprolol succinate 25 mg tablet extended release 24 hr 25 mg PO ONCE PM Entresto 24-26 mg tablet 0.5 tab PO BID Pomalyst 4 mg Capsule See Rx Instructions .ROUTE .COMPLEX Rx Instructions: 4 mg orally ;am daily day 1-21 then 1 week off(on second week at this time) benzonatate 100 mg Capsule 100 mg PO TID PRN (Reason: Cough) Memory Supplement 2 tab PO DAILY Biost Supplement 1 tab PO DAILY valacyclovir 500 mg Tablet 500 mg PO BID Qty: 180 3RF Discontinued levofloxacin 500 mg tablet 500 mg PO DAILY Follow up/Referrals: Isaias Nance MD [Primary Care Provider] - 1 Week (call for appointment please) Diet/Activity/Treatments Diet: Diet as Tolerated Activity: as tolerated Oxygen: home with oxygen Skin/Wound/Dressing Care Report to your healthcare provider any signs of infection, such as:: chills, fever and night sweats Visit Report/Discharge Packet Instructions: Home Oxygen Therapy, DI for Pneumonia -- Adult, DI for Oxygen Therapy -- Adult, How to Measure Oxygen Saturation via Pulse Oximetry, How to Perform Oxygen Therapy via Cannula, How to Perform Oxygen Therapy via Mask, Cefepime Injection, Traveling When You Need Oxygen Therapy Stand Alone Forms: Patient Portal/API, Stroke Signs & Symptoms Discharge Data Primary Care Provider: Isaias Nance VTE Deep Vein Thrombosis/Pulmonary Embolism Present on Admission: No
[2024-03-07] MEDS: ENTRESTO 12 EACH PO (08:24)
[2024-03-07] MEDS: valACYclovir 500 MG TABLET PO (08:24)
[2024-03-07] MEDS: FUROSEMIDE 40 MG TABLET PO (08:24)
[2024-03-07] MEDS: ENOXAPARIN 40 MG/0.4 ML SYRINGE SUBCUT (08:24)
[2024-03-07] MEDS: SODIUM CHLORIDE 0.9% FLUSH 10 ML IV (08:25)
--- NOTE | 2024-03-07 09:20 | CM.DPNOTE ---
DCP note PARK SUPERINTENDENT reviewed EMR. Per chart review, pt cleared to dc home today. CC Margy kindly agreed to email Sandy from [facility] dc sum/f2f/order. PARK SUPERINTENDENT met with pt, spouse, and other family in room. Agreeable to dc today with HH. PARK SUPERINTENDENT provided them with [facility] brochure. Eager to dc. Just need home O2 set up and then can go. PARK SUPERINTENDENT updated RN. Per RT, working on home O2 this morning. Plan: dc home today with family, new home O2, and [facility] to follow for RN/PT/OT. transport with family in POV. CM team will continue to follow closely for additional DCP needs. DORITA Berry
--- NOTE | 2024-03-07 10:45 | PT-IP ANOTE ---
Pt refused to work with PT this morning. He reports he has been getting up all morning and he is discharging later this morning.
== END 2024-03-07 11:21 | disposition home health service (06) | DRG 193 ==
LOC: ED 20:47 → AC 20:57 → ICU 22:24 → AC 02-27 16:32
PROVIDERS: Family Medicine; Internal Medicine; Admitting Provider Family Medicine; Emergency Provider Emergency Medicine; PCP Family Medicine; Referring Provider Emergency Medicine; Visit Provider Family Medicine
DX: J12.2 Parainfluenza virus pneumonia (principal); I50.23 Acute on chronic systolic (congestive) heart failure; J96.01 Acute respiratory failure with hypoxia; C90.00 Multiple myeloma not having achieved remission; D61.818 Other pancytopenia; B97.29 Other coronavirus as the cause of diseases classified elsewhere
CPT/HCPCS: 36415; 71045; 71046; 80048; 80053; 82550; 83605; 83690; 83880; 84145; 84484; 85007; 85025; 85610; 85730; 87040; 87633; 87797; 93005; 94618; 94762; 96365; 96367; 96368; 97116; 97161; 97165; 97530; 97535; 99222; 99233; 99285; J0136; J0692; J0696; J1650; J1940

== ENCOUNTER → 2024-07-05 06:59 | Outpatient (CLI) | payer MEDICARE, SELFPAY ==
[2024-02-26 22:38] VITALS: BMI 28.9
--- NOTE | 2024-07-05 07:01 | DI.ECHO.S_ITS ---
[facility]---------+ [facility] : : [id number] : [place] : : [id number] : : Phone: [phone] Echocardiogram Report + + :Name: ELENA ARELLANO Study Date: 07/05/2024 Height: 75 in : :Hospital ReadingLocation: Weight: 240 lb : : Gender: Male BSA: 2.4 m2 : :: 1950 Age: 73 yrs BP: 141/79 mmHg: :Reason For Study: CARDIOMYOPATHY : :Ordering Physician: OSEAS, : :NATALI Performed By: Madison Evans : :Referring: NATALI FAROOQ : + + Interpretation Summary The left ventricle is normal in size and wall thickness. The ejection fraction is estimated to be 45-50%. Grade I diastolic dysfunction. The right ventricle is mildly dilated. The right ventricular systolic function is normal. There is moderate biatrial enlargement. There is mild aortic regurgitation. Pulmonary artery pressures cannot be estimated because of the lack of a measurable TR jet velocity but the IVC suggests a CVP of around 3 mmHg. The ascending aorta is moderately enlarged, 4.4 cm. Compared to the prior study dated 07/06/2023, no significant change. Procedure: A two-dimensional transthoracic echocardiogram with color flow and Doppler was performed. The study quality was technically adequate. Comparison is made with the echocardiogram of 07/06/2023. A contrast injection of Definity was performed to improve assessment of LV function. The patient was in sinus rhythm with heart rates between 58-74 bpm during the exam. Left Ventricle: The left ventricle is normal in size and wall thickness. The ejection fraction is estimated to be 45-50%. Diastolic parameters suggest a relaxation abnormality of the left ventricle, consistent with probable normal filling pressures. Right Ventricle: The right ventricle is mildly dilated. The right ventricular systolic function is normal. Atria: There is moderate biatrial enlargement. There is no Doppler evidence for an interatrial shunt. Mitral Valve: The mitral valve is normal in structure and function. There is trace mitral regurgitation. Aortic Valve: The aortic valve opens well. There is no aortic valve stenosis. There is mild aortic regurgitation. Tricuspid Valve: The tricuspid valve is normal in structure and function. There is trace tricuspid regurgitation. Pulmonary artery pressures cannot be estimated because of the lack of a measurable TR jet velocity but the IVC suggests a CVP of around 3 mmHg. Pulmonic Valve: The pulmonic valve leaflets are thin and pliable; valve motion is normal. There is trace pulmonic regurgitation. Great Vessels: The aortic root is moderately dilated. The ascending aorta is moderately enlarged. The IVC is of normal diameter and collapses greater than 50% with a sniff. This suggests a low right atrial pressure of 3 mm Hg. Pericardium/ Pleura There is no pericardial effusion. There is no pleural effusion. MMode/2D Measurements & Calculations LVIDd: 6.2 cm LVOT diam: 2.6 cm LVIDs: 4.3 cm Ao root diam: 4.8 cm FS: 30.3 % asc Aorta Diam: 4.4 cm IVSd: 1.3 cm LVPWd: 1.1 cm LV montiel. diameter/BSA (cm/m^2): 2.6 LV sys. diameter/BSA (cm/m^2): 1.8 LA A2 area: 28.7 cm2 RA long axis: 5.3 cm LA A4 area: 27.6 cm2 RA area: 17.8 cm2 LA length (vol): 6.2 cm RA vol: 51.1 ml LA vol: 108.2 ml RA : 21.5 ml/m2 LA vol index: 45.6 ml/m2 IVC diam: 1.8 cm RVD1 (basal): 4.5 cm RVD2 (mid): 3.5 cm TAPSE: 2.7 cm Doppler Measurements & Calculations Ao V2 max: 105.3 cm/sec LVOT Max Edil: 93.5 cm/sec Ao V2 mean: 81.5 cm/sec LV V1 max P.5 mmHg Ao max P.5 mmHg LV V1 VTI: 19.4 cm Ao mean P.8 mmHg KALEN(I,D): 5.0 cm2 Ao V2 VTI: 20.5 cm KALEN(V,D): 4.7 cm2 sev ratio: 0.94 KALEN indexed to BSA (cm^2/m^2): 2.1 MV E max edil: 51.2 cm/sec TR max edil: 248.8 cm/sec MV A max edil: 60.3 cm/sec TR max P.8 mmHg MV E/A: 0.85 PA V2 max: 74.4 cm/sec Med Peak E' Edil: 5.5 cm/sec PA V2 mean: 53.1 cm/sec E/E' med: 9.3 PA mean P.2 mmHg Lat Peak E' Edil: 7.8 cm/sec PA pr(Accel): 46.5 mmHg E/E' lat: 6.6 E/e' average: 7.9 MV dec time: 0.25 sec SV(LVOT): 102.2 ml Reading Physician:05:41 PM
== END ==
LOC: ECHO 07:00
PROVIDERS: PCP Family Medicine; Referring Provider Physician Assistant; Visit Provider Physician Assistant
DX: I35.1 Nonrheumatic aortic (valve) insufficiency (principal); I42.9 Cardiomyopathy, unspecified; I77.810 Thoracic aortic ectasia; I77.89 Other specified disorders of arteries and arterioles
CPT/HCPCS: C8929; Q9957